=== PATIENT | male | born 1945 | race Caucasian/White ===

== ENCOUNTER 2016-05-09 17:51 | Emergency (ER) | payer MEDICARE, BC ==
[2016-05-09 18:13] VITALS: BP 119/78; PULSE 77; RESP 20; TEMP 98
[2016-05-09] MEDS ORDERED: MORPHINE SULFATE 4 MG/ML SYRINGE IV STA (18:52)
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
[2016-05-09] MEDS ORDERED: MORPHINE SULFATE 10 MG/ML SYRINGE IM STA (19:00)
--- NOTE | 2016-05-09 19:07 | XR ---
EXAMINATION TYPE: XR lumbar spine 2 or 3V DATE OF EXAM: 05/09/2016 7:02 PM COMPARISON: 12/03/2014 HISTORY: Back pain after a fall TECHNIQUE: 3 views FINDINGS: There is a slight levoscoliosis. There is mild narrowing of L4-5 disc space. There is no co mpression fracture. Abdominal aorta is atheromatous. Posterior elements are intact. Sacroiliac joints are normal. IMPRESSION: No fracture. Mild spondylosis at L4-5. Mild levoscoliosis. No change.
== END 2016-05-09 19:22 | disposition home or self-care (01) ==
LOC: EC 17:51
DX: M54.5 Low back pain (principal); G89.29 Other chronic pain; W00.0XXA Fall on same level due to ice and snow, initial encounter; I10 Essential (primary) hypertension; E78.5 Hyperlipidemia, unspecified; K21.9 Gastro-esophageal reflux disease without esophagitis; I20.9 Angina pectoris, unspecified; F17.200 Nicotine dependence, unspecified, uncomplicated; Z79.82 Long term (current) use of aspirin; Z79.899 Other long term (current) drug therapy; Z86.73 Personal history of transient ischemic attack (TIA), and cerebral infarction without residual deficits; I25.2 Old myocardial infarction
CPT/HCPCS: 72100; 99283; 96372; J2270

== ENCOUNTER 2016-05-09 22:02 | Inpatient (IN) | payer MEDICARE, BC ==
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
[2016-05-09] MEDS ORDERED: KETOROLAC 30 MG/ML 1 ML VIAL IVP STA (22:15)
[2016-05-09 22:29] LABS: Basophils # (A) 0.1 k/uL (0-0.2); Basophils % (A) 0 %; CH 32.6; CHCM 34.5; Eosinophils # (A) 0.2 k/uL (0-0.7); Eosinophils % (A) 2 %; HCT 44.9 % (39.0-53.0); HDW 2.38; Luc # (Auto) 0.24; Luc % (Auto) 2; Lymphocytes # (A) 2.2 k/uL (1.0-4.8); Lymphocytes % (A) 15 %; MCH 31.7 pg (25.0-35.0); MCHC 33.4 g/dL (31.0-37.0); MCV 94.9 fL (80.0-100.0); Mean Platelet Volume 6.3; Monocytes # (A) 0.7 k/uL (0-1.0); Monocytes % (A) 5 %; Neutrophils # (A) 10.6 k/uL (1.3-7.7); Neutrophils % (A) 76 %; RBC 4.73 m/uL (4.30-5.90); WBC (Perox) 13.15
[2016-05-09 22:37] LABS: ALT 187 U/L (21-72); AST 233 U/L (17-59); Alkaline Phosphatase 99 U/L (38-126); Amylase 176 U/L (30-110); Anion Gap 16 mmol/L; Blood Urea Nitrogen 17 mg/dL (9-20); Calcium 9.1 mg/dL (8.4-10.2); Carbon Dioxide 22 mmol/L (22-30); Chloride 105 mmol/L (98-107); Glucose 87 mg/dL (74-99); Magnesium 2.2 mg/dL (1.6-2.3); Non-African American GFR(MDRD) 52 (>60 ml/min/1.73 sqM); Potassium 4.5 mmol/L (3.5-5.1); Sodium 143 mmol/L (137-145); Total Protein 7.2 g/dL (6.3-8.2)
[2016-05-09 22:49] LABS: Creatine Kinase 161 U/L (55-170)
--- NOTE | 2016-05-09 22:51 | XR ---
EXAMINATION TYPE: XR chest 2V DATE OF EXAM: 05/09/2016 10:28 PM COMPARISON: 09/13/2011 HISTORY: Chest pain TECHNIQUE: Frontal and lateral views of the chest are obtained. FINDINGS: Heart is normal. There is evidence of calcified pleural plaque in the right lower lobe lat erally and posteriorly. There is no heart failure. There are no hilar masses. There are chest leads. There is no sign of pleural effusion. IMPRESSION: Extensive right lower lobe calcified pleural plaque appears fairly stable compared to ol d chest x-ray. No acute lung disease.
[2016-05-09 22:53] LABS: Prothrombin Time 10.2 sec (9.0-12.0)
[2016-05-09 22:55] LABS: Partial Thromboplastin Time 20.7 sec (22.0-30.0)
[2016-05-09 23:01] LABS: Creatine Kinase MB 2.4 ng/mL (0.0-2.4); Troponin I <0.012 ng/mL (0.000-0.034)
[2016-05-09] MEDS ORDERED: HYDROmorphone 1 MG/ML 1 ML SYRINGE IVP STA (23:13)
[2016-05-09] MEDS ORDERED: ONDANSETRON 4 MG/2 ML VIAL IVP STA (23:13)
[2016-05-09] MEDS ORDERED: NALOXONE 0.4 MG/ML 1 ML VIAL IV PRN (23:28)
[2016-05-09] MEDS ORDERED: ONDANSETRON 4 MG/2 ML VIAL IVP PRN (23:28)
[2016-05-09] MEDS ORDERED: NITROGLYCERIN SL TABS 0.4 MG TAB SUBLINGUAL PRN (23:32)
[2016-05-09] MEDS: SODIUM CHLORIDE 0.9% 1,000 ML IV SCH (23:53)
[2016-05-10 00:42] VITALS: BMI 23.1
[2016-05-10] MEDS: HYDROmorphone 1 MG/ML 1 ML SYRINGE IV PRN ×6 (02:30→20:38)
[2016-05-10] MEDS: SODIUM CHLORIDE 0.9% 1,000 ML IV SCH ×3 (04:39→20:52)
[2016-05-10] MEDS: PANTOPRAZOLE 40 MG/10 ML VIAL IV SCH ×2 (07:25→20:41)
[2016-05-10 15:14] LABS: ALT 335 U/L (21-72); AST 385 U/L (17-59); Alkaline Phosphatase 124 U/L (38-126); Anion Gap 11 mmol/L; Blood Urea Nitrogen 18 mg/dL (9-20); Calcium 8.5 mg/dL (8.4-10.2); Carbon Dioxide 22 mmol/L (22-30); Chloride 107 mmol/L (98-107); Glucose 84 mg/dL (74-99); Non-African American GFR(MDRD) >60 (>60 ml/min/1.73 sqM); Sodium 140 mmol/L (137-145); Total Bilirubin 1.2 mg/dL (0.2-1.3); Total Protein 6.2 g/dL (6.3-8.2)
[2016-05-10 16:15] LABS: Anion Gap 12 mmol/L; Blood Urea Nitrogen 22 mg/dL (9-20); Calcium 8.8 mg/dL (8.4-10.2); Carbon Dioxide 21 mmol/L (22-30); Chloride 108 mmol/L (98-107); Glucose 65 mg/dL (74-99); Non-African American GFR(MDRD) >60 (>60 ml/min/1.73 sqM); Potassium 4.3 mmol/L (3.5-5.1); Sodium 141 mmol/L (137-145)
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
[2016-05-10] MEDS ORDERED: RX INFO: IV CONTRAST WAS GIVEN 1 EACH MISC MISCELLANE PRN (16:51)
[2016-05-10] MEDS ORDERED: IOHEXOL 350 MG/ML 25 ML BOTTLE (ORAL USE) PO PRN (16:51)
[2016-05-10] MEDS: DEXTROSE 5%-0.9% NACL 1,000 ML IV SCH ×2 (17:39→23:13)
--- NOTE | 2016-05-10 18:43 | HP ---
DATE OF ADMISSION: 05/09/2016 Patient is a pleasant 70 -year-old gentleman with history of cerebrovascular accident, transient ischemic attack, gastroesophageal reflux disease who came in with complaints of epigastric abdominal pain radiating to the neck and left arm, pressure like sensation. Started when he woke up. Patient had an EKG which did not show any acute ST-T wave changes. Troponins are negative. The patient chest pain, ( ) associated diaphoresis with that. Patient denied any fever, chills. The patient denied any cough or runny nose. The patient was found to have elevated lipase, highly elevated lipase because of which patient was admitted to the hospital, although patient denied any symptoms of abdominal pain. He does have some epigastric component of abdominal pain rather than chest pain and ( ) the patient upon ( ) tenderness. The patient is complaining of back pain. Patient had a fall. Patient was evaluated for a fall with imaging studies ( ) the hospital after which patient started having these symptoms of back pain and chest pain which is probably related to ( ) chest pain is probably related to pancreatitis rather than active chest pain and is mostly epigastric in nature. Cardiology was consulted. Ordering abdominal x-ray so that I can look into his ( ) I can confirm pancreatitis and see any ( ) pathology and also we will help him evaluate his thoracic and thoracolumbar spine as well on that imaging. Because of his recent fall and severe back pain, he is complaining of which is 7/10 in severity. The patient denied any fever or chills. The patient liver enzymes are elevated as well. Depending on the CT of the abdomen, I may also need to get abdominal ultrasound to see any cholelithiasis related gallstone pancreatitis. REVIEW OF SYSTEMS: CONSTITUTIONAL: No fever, no malaise, no fatigue. HEENT: No recent visual problems or hearing problems. Denied any sore throat. CARDIOVASCULAR: As described in HPI. PULMONARY: No shortness of breath, no cough, no hemoptysis. GASTROINTESTINAL: As described in HPI. NEUROLOGICAL: No headaches, no weakness, no numbness. HEMATOLOGICAL: Denies any bleeding or petechiae. GENITOURINARY: Denies any burning micturition, frequency, or urgency. MUSCULOSKELETAL/RHEUMATOLOGICAL: As described in HPI. ENDOCRINE: Denies any polyuria or polydipsia. The rest of the 14 point review of systems is negative. PAST MEDICAL HISTORY: Significant for coronary artery disease with previous stenting in the past, myocardial infarction in the past, CVA, TIA, gastroesophageal reflux disease, hyperlipidemia, hypertension, cholecystectomy, orthopedic surgery, neck and jaw surgery. SOCIAL HISTORY: Patient continues to smoke. Denied any alcohol abuse or drug abuse. FAMILY HISTORY: Father had angina, chest pain. Mother had cancer. Home medications include: 1. Atenolol. 2. Isosorbide mononitrate. 3. Nitroglycerin. 4. Pantoprazole. 5. Amlodipine. 6. Aspirin. 7. Atorvastatin. 8. Wellbutrin. ALLERGIES: NSAIDS. PHYSICAL EXAMINATION: Temperature 97.6, pulse of 61, respiratory rate of 16, blood pressure is 160/82, saturating at 95% on room air. GENERAL: The patient is alert and oriented x3, not in any acute distress. Well developed, well nourished. HEENT: Pupils are round and equally reacting to light. EOMI. No scleral icterus. No conjunctival pallor. Normocephalic, atraumatic. No pharyngeal erythema. No thyromegaly. CARDIOVASCULAR: S1 and S2 present. No murmurs, rubs, or gallops. PULMONARY: Chest is clear to auscultation, no wheezing or crackles. ABDOMEN: Soft, nontender, nondistended, normoactive bowel sounds. No palpable organomegaly. MUSCULOSKELETAL: No joint swelling or deformity. EXTREMITIES: No cyanosis, clubbing, or pedal edema. NEUROLOGICAL: Gross neurological examination did not reveal any focal deficits. SKIN: No rashes. LABORATORY DATA: CBC, CMP are abnormal for elevated WBC 14,000. Patient's creatinine yesterday was elevated to 1.12, 1.36 on admission because of which I am repeating the creatinine. If it comes down to normal then I will get a CT of the abdomen and AST and ALT are elevated. The patient's amylase and lipase are elevated. Lipase is 2668. The patient is presently n.p.o. We will continue on n.p.o. The patient's chest x-ray showed right lower lobe calcified pleural plaque, actually pulmonology is following the patient as well. ASSESSMENT AND PLAN: 1. Possible pancreatitis causing all these symptoms. The patient most probably has gallstone pancreatitis. Patient does have alcohol abuse history but I believe it is mostly due to gallstones. First I will obtain a CT of the abdomen as mentioned above and then ultrasound of the abdomen depending on what CT shows to evaluate for the gallbladder. The patient continues to be n.p.o. IV fluid. Continue with IV Fluids as mentioned earlier. 2. Chest pain appears to be mostly gastric and pancreatic in nature, the patient is on Protonix but anyways we will consult cardiology, acute coronary syndrome is ruled out. 3. Back pain most probably related to pancreatitis, although patient has spondylosis at L4, L5 level and recent fall. I do not believe that is contributing to his pain. 4. History of cerebrovascular accident/ transient ischemic attack. 5. Coronary artery disease. 6. Nicotine dependence. 7. Elevated liver enzymes undergoing further evaluation as mentioned above. Will also obtain a hepatitis panel.
[2016-05-10 19:11] LABS: Hepatitis B Surface Ag Index 0.06
--- NOTE | 2016-05-10 19:13 | CT ---
EXAMINATION TYPE: CT abdomen pelvis w con DATE OF EXAM: 05/10/2016 6:51 PM COMPARISON: 09/11/2012 HISTORY: Upper abdominal pain x 4-[address] DLP: 962.00 mGycm Automated exposure control for dose reduction was used. TECHNIQUE: Helical acquisition of images was performed from the lung bases through the pelvis. CONTRAST: Performed with Oral Contrast and with IV Contrast, patient injected with 100 mL of Omnipaque 300. FINDINGS: There is extensive calcified pleural plaque at the right lung base. There is no pleural effusion. Hea rt size is normal. The stomach is dilated with the oral contrast. Spleen appears normal. There is no focal liver defect. Intrahepatic bile ducts are not dilated. There are clips from cholecystectomy. There is a dilated co mmon bile duct that measures 2 cm. There are multiple bilateral renal cortical cysts. The largest is on the lateral left kidney and drake ures 6.5 cm. There is no hydronephrosis. There is no retroperitoneal adenopathy. Abdominal aorta is a theromatous. There is no ascites. I see no intestinal wall thickening. There are no dilated loops. Bl adder distends smoothly. There is no sign of a pelvic mass. Appendix appears normal. I see no bony de structive process. IMPRESSION: EXTENSIVE CALCIFIED PLEURAL PLAQUE AT THE RIGHT LUNG BASE. NUMEROUS BILATERAL RENAL CORTICAL CYSTS. D ILATED STOMACH WITH THE ORAL CONTRAST. THERE IS ORAL CONTRAST IN THE SMALL BOWEL. THE POSSIBILITY OF A MILD GASTRIC OUTLET OBSTRUCTION SHOULD BE CONSIDERED. THERE IS A DILATED COMMON BILE DUCT THAT IS INCREASED IN SIZE COMPARED TO LAST CT SCAN. THIS IS SUGGE STIVE OF BILIARY DYSFUNCTION. THERE IS NO SIGNIFICANT CHANGE IN THE RENAL CYSTS AND PLEURAL PLAQUE.
[2016-05-10 19:17] LABS: Hepatitis B Core IgM Index 0.03
[2016-05-10 19:28] LABS: Hepatitis C Virus IgG Index 0.01
[2016-05-10 19:47] LABS: Hepatitis C Virus IgG Ab Negative (Negative)
[2016-05-11] MEDS: SODIUM CHLORIDE 0.9% 1,000 ML IV SCH ×2 (04:52→11:31)
[2016-05-11] MEDS: HYDROmorphone 1 MG/ML 1 ML SYRINGE IV PRN ×3 (07:19→13:25)
[2016-05-11] MEDS: ISOSORBIDE MONONITRATE ER 60 MG TAB.ER.24H PO SCH (07:20)
[2016-05-11] MEDS: ATENOLOL 25 MG TAB PO SCH (07:20)
[2016-05-11] MEDS: PANTOPRAZOLE 40 MG/10 ML VIAL IV SCH ×2 (07:20→21:51)
[2016-05-11 08:29] LABS: Basophils % (A) 1 %; CH 32.6; CHCM 34.3; Eosinophils # (A) 0.2 k/uL (0-0.7); Eosinophils % (A) 4 %; HCT 42.3 % (39.0-53.0); HDW 2.49; HGB 13.7 gm/dL (13.0-17.5); Luc # (Auto) 0.07; Luc % (Auto) 1; Lymphocytes # (A) 0.8 k/uL (1.0-4.8); Lymphocytes % (A) 13 %; MCH 30.9 pg (25.0-35.0); MCHC 32.4 g/dL (31.0-37.0); MCV 95.4 fL (80.0-100.0); Mean Platelet Volume 7.2; Monocytes # (A) 0.5 k/uL (0-1.0); Monocytes % (A) 9 %; Neutrophils # (A) 4.1 k/uL (1.3-7.7); Neutrophils % (A) 73 %; RBC 4.43 m/uL (4.30-5.90); RDW 13.1 % (11.5-15.5); WBC 5.6 k/uL (3.8-10.6); WBC (Perox) 5.75
[2016-05-11 08:31] LABS: ALT 205 U/L (21-72); AST 101 U/L (17-59); Alkaline Phosphatase 171 U/L (38-126); Amylase 60 U/L (30-110); Anion Gap 9 mmol/L; Blood Urea Nitrogen 11 mg/dL (9-20); Calcium 8.8 mg/dL (8.4-10.2); Carbon Dioxide 24 mmol/L (22-30); Chloride 110 mmol/L (98-107); Glucose 118 mg/dL (74-99); Non-African American GFR(MDRD) >60 (>60 ml/min/1.73 sqM); Sodium 143 mmol/L (137-145); Total Bilirubin 1.6 mg/dL (0.2-1.3); Total Protein 6.4 g/dL (6.3-8.2)
--- NOTE | 2016-05-11 09:22 | US ---
EXAMINATION TYPE: US gallbladder DATE OF EXAM: 05/11/2016 8:52 AM COMPARISON: CT on PACS from yesterday. CLINICAL HISTORY: elevated liver enzymes. pancreatitis; gallbladder removed EXAM MEASUREMENTS: Liver Length: 15.8 cm Gallbladder Wall: surgically removed CBD: 1.6 cm at jared hepatis and then decreases within head of pancreas to 1.0cm Right Kidney: 11.0 x 8.0 x 4.2 cm TECHNOLOGIST IMPRESSION: Pancreas: pancreatic duct by US at 0.3cm upper limits of normal Liver: Heterogeneous Gallbladder: surgically absent CBD: abnormally prominent at jared hepatis as can be measure up to 1.0cm post cholecystectomy,but do es taper to 1.0cm within pancreas Right Kidney: multiple renal cysts with largest at upper pole = 3.4 x 3.1 x 3.3cm Pancreatic duct is upper limits of normal and correlates with recent CT. There is extrahepatic biliar y dilatation without intrahepatic biliary dilatation which correlates with recent CT. Liver is hetero geneous in appearance. Evaluation for focal masses is limited due to the heterogeneity. No obvious erazo spicious masses are seen on recent CT. Several simple appearing cysts are scattered throughout the ri ght kidney. IMPRESSION: 1. Mild to moderate extrahepatic biliary dilatation out of proportion to what is suspected after chol ecystectomy is redemonstrated. No intrahepatic ductal dilatation is seen. Need to further investigate biliary ERCP should be based on clinical and lab correlation. 2. No worrisome pancreatic ductal dilatation is noted. On CT there is pancreatic divisum with main du ct emptying into duodenum superior to the ampulla seen best on coronal images. 3. Heterogeneity of liver could reflect fatty infiltration or underlying hepatocellular disease and c orrelates with recent CT. No intrahepatic ductal dilatation is noted.
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
[2016-05-11] MEDS: DEXTROSE 5%-0.9% NACL 1,000 ML IV SCH ×3 (13:03→21:51)
[2016-05-11] MEDS ORDERED: LEVOFLOXACIN 500MG-D5W PMX 500 MG in DEXTROSE/WATER 1 100ML.BAG IVPB ONE (14:00)
[2016-05-11] MEDS ORDERED: PROPOFOL 10 MG/ML 20 ML VIAL IV ONE (14:01)
[2016-05-11] MEDS ORDERED: LIDOCAINE 1% INJ 10MG/ML (20 ML MDV) ONE (14:01)
[2016-05-11] MEDS ORDERED: GLUCAGON 1 MG/ML VIAL ONE (14:01)
[2016-05-11] MEDS ORDERED: KETAMINE 10 MG/ML 20 ML VIAL ONE (14:01)
[2016-05-11] MEDS ORDERED: GLYCOPYRROLATE 0.2 MG/ML 2 ML VIAL ONE (14:01)
[2016-05-11] MEDS ORDERED: IV FLUID CONTINUATION 800 ML IV ONE (14:18)
[2016-05-11] MEDS ORDERED: IOHEXOL 300 MG/ML 50 ML BOTTLE INJ ONE (14:48)
--- NOTE | 2016-05-11 15:03 | P.PN ---
Subjective Principal diagnosis: Pancreatitis This is a very pleasant 70-year-old gentleman who has a history of CVA/TIA, GERD , hyperlipidemia, hypertension, chronic and ongoing tobacco dependence, daily alcohol use and angina. He presented here to the emergency room yesterday with complaints of sharp midsternal chest pain. He was here earlier in the day after sustaining a fall and injury to his back was treated and released. A few hours later he developed sharp midsternal anterior chest pain 7/10 in severity he took some nitroglycerin without relief. He was given morphine in the Route by the paramedics that helped subside the pain somewhat. He also had some epigastric discomfort radiating to his back. His chest x-ray revealed extensive right lower lobe calcified pleural plaque but no acute pulmonary process. D-dimer was negative and he did develop elevated LFTs which are slightly increased today as compared to yesterday. He was also found to have elevated amylase at 176, lipase 1683 increased to 2668 today. He is seen today in consultation. He is awake and alert in no acute distress. He is continuing to have some back pain. He also has some epigastric pain. He has remained nothing by mouth. He is seen again today 05/11/2016 in follow-up. He is awake and alert in no acute distress. He states his pain is subsided somewhat today as compared to yesterday. He has been seen by GI services and the plan is for an ERCP after a CT of the abdomen revealed dilated common bile duct that is increased in size compared to previous. This is suggestive of biliary dysfunction. He has consented to the procedure. His hepatitis screen is negative. His amylase and lipase have returned to normal. He currently denies any shortness of breath, cough or congestion. Objective - Vital Signs Vital signs: Vital Signs Temp 98.5 F 05/11/16 07:15 Pulse 68 05/11/16 07:15 Resp 16 05/11/16 07:15 BP 162/77 05/11/16 07:15 Pulse Ox 97 05/11/16 07:15 Intake & Output 05/10/16 05/11/16 05/11/16 18:59 06:59 18:59 Intake Total 1500 1300 Balance 1500 1300 Weight 67.132 kg Intake: IV 300 Intake, IV Titration 1500 1000 Amount Dextrose 5%-0.9% NaCl 1, 1200 1000 000 ml @ 150 mls/hr IV . Q6H40M [facility] Rx#:[id number] Sodium Chloride 0.9% 1, 300 000 ml @ 150 mls/hr IV . Q6H40M [facility] Rx#:[id number] Other: Voiding Method Toilet Toilet Urinal Urinal # Voids 2 2 # Bowel Movements 1 - Exam GENERAL EXAM: Alert, active, comfortable in no apparent distress. HEAD: Normocephalic. EYES: Normal reaction of pupils, equal size. NOSE: Clear with pink turbinates. THROAT: No erythema or exudates. NECK: No masses, no JVD. CHEST: No chest wall deformity. LUNGS: Equal air entry with no crackles, wheeze, rhonchi or dullness. CVS: S1 and S2 normal with no audible mumurs, regular rhythm. ABDOMEN: No hepatosplenomegaly, normal bowel sounds, no guarding or rigidity. SPINE: No scoliosis or deformity SKIN: No rashes CENTRAL NERVOUS SYSTEM: No focal deficits, tone is normal in all 4 extremities. Extremities: There is no significant peripheral edema. No clubbing, no cyanosis. Peripheral pulses are intact. - Labs CBC & Chem 7: 05/11/16 07:17 05/11/16 07:17 Labs: Abnormal Lab Results - Last 24 Hours (Table) 05/10/16 05/10/16 05/11/16 Range/Units 03:51 15:28 07:17 Lymphocytes # (1.0-4.8) k/uL Chloride 108 H 110 H (98-107) mmol/L Carbon Dioxide 21 L (22-30) mmol/L BUN 22 H (9-20) mg/dL Glucose 65 L 118 H (74-99) mg/dL Total Bilirubin 1.6 H (0.2-1.3) mg/dL AST 385 H 101 H (17-59) U/L ALT 335 H 205 H (21-72) U/L Alkaline Phosphatase 171 H (38-126) U/L Total Protein 6.2 L (6.3-8.2) g/dL 05/11/16 Range/Units 07:17 Lymphocytes # 0.8 L (1.0-4.8) k/uL Chloride (98-107) mmol/L Carbon Dioxide (22-30) mmol/L BUN (9-20) mg/dL Glucose (74-99) mg/dL Total Bilirubin (0.2-1.3) mg/dL AST (17-59) U/L ALT (21-72) U/L Alkaline Phosphatase (38-126) U/L Total Protein (6.3-8.2) g/dL Assessment and Plan Plan: Impression: #1 Anterior wall chest pain with epigastric discomfort secondary to pancreatitis. Computed tomography scan of the abdomen and pelvis revealed dilated common bile duct that is increased in size compared to previous. There is suggestion of biliary dysfunction and the plan is for ERCP today. #2 Pancreatitis secondary to excessive alcohol intake. #3 Back pain secondary to fall without acute fracture and mild spondylosis at L4 -5. Mild level scoliosis. #4 Angina. #5 History of CVA/TIA. #6 Chronic and ongoing tobacco dependence. #7 Chronic and ongoing daily alcohol use with elevated liver enzymes. Plan: The patient was seen and evaluated by Dr. Lindo. He is currently stable from the pulmonary standpoint. He has no pulmonary complaints. The plan is for ERCP today. We'll continue to follow and make further recommendations based on his clinical status.
--- NOTE | 2016-05-11 15:03 | FL ---
EXAMINATION TYPE: FL ERCP DATE OF EXAM: 05/11/2016 2:57 PM CLINICAL HISTORY: Biliary dilatation, abnormal CT TECHNIQUE: Fluoroscopy. COMPARISON: CT abdomen and pelvis from yesterday. FINDINGS: Fluoroscopic guidance was provided during ERCP procedure performed by Dr. Dixon. A total of 1 minute 57 seconds of fluoroscopic time was utilized during the procedure and 2 spot images are acquired. There is poor visualization of biliary system on images saved. Please refer to procedure no te for further details as I was not present nor performed procedure. IMPRESSION: As Above.
--- NOTE | 2016-05-11 15:56 | P.PCN ---
Date of Procedure: 05/11/16 Procedure(s) Performed: Procedure: Endoscopic retrograde pancreatography. Preoperative diagnosis: Pancreatitis and abnormal liver enzymes, rule out common bile duct stone. Postoperative diagnosis: 1. Pancreas divisum. 2. Common bile duct could not be visualized despite multiple attempts. Brief clinical history: The patient is a 70-year-old male with past medical history of GERD, hyperlipidemia, hypertension, cholelithiasis/cholecystectomy, CVA, and [place] presents with acute abdominal pain for last 2 days with nausea vomiting. Pancreatic enzymes elevated consistent with acute pancreatitis. Lipase 1683 increased to 2668 yesterday currently 85. Amylase 176 on admission , currently 60. Pain located mostly around the mid epigastrium/midabdomen. History of remote EtOH abuse but denies current abuse. Admission white count 14 currently 5.6. Total bilirubin on admission 1.0. AST 233. ALT 187. Yesterday total bilirubin 1.2. AST 385. ALT 335. Alkaline phosphate is 124. Today total bilirubin is increased to 1.6. AST 101. ALT 205. Alk phos is 171. Ultrasound of the abdomen reported CBD 1.6 at the jared hepatis than decreasing to 1.0 cm as it tapers toward the head of the pancreas. Additionally US mentions pancreatic divisum. Computed tomography scan abdomen and pelvis reported no evidence of intrahepatic ductal dilatation but there was evidence of extrahepatic ductal dilatation with CBD measuring up to 2 cm. No obvious retained CBD stones seen on CT. No focal pancreatic masses. Because of the persistent abdominal pain and biochemical abnormalities, this evaluation was scheduled to rule out common bile duct stone or other pathology. The details are summarized in the history and physical and dictated consultation. Procedure: With the patient in the prone position and after informed consent and adequate sedation, I passed the Olympus video duodenoscope down the esophagus into the stomach then passed it through the pylorus into the duodenum and brought the papilla into view. The papilla did not show any obvious abnormalities. Initial cannulation and injection with dye resulted in opacification of the ventral portion of the pancreatic duct consistent with pancreas divisum. Subsequent attempts to cannulate and inject the common bile duct were not successful. The patient tolerated the procedure well. Plan: I discussed the findings with the patient and with his in detail. Depending on his clinical course I would consider MRCP or EUS to further evaluate the problem and rule out other causes of pancreatitis. We will follow with you with interest.
--- NOTE | 2016-05-11 21:59 | PN ---
Patient is admitted with pancreatitis. Patient has gallstone pancreatitis. Patient also has possibility of choledocholithiasis, because of which patient underwent ERCP which showed pancreatic divisum. Further attempts to re-cannulate were unsuccessful and they are recommending MRCP ( ) as patient's liver enzymes are coming down. I will just hold off on MRCP. I will leave that decision to Gastroenterology. Patient's abdominal pain improved. The patient was started on diet, advance as tolerated. REVIEW OF SYSTEMS: CARDIOVASCULAR: No chest pain, no orthopnea, no PND, no palpitations. PULMONARY: Denied any shortness of breath. No cough or hemoptysis. GASTROINTESTINAL: No diarrhea, nausea or vomiting. No abdominal pain. Normoactive bowel sounds. NEUROLOGIC: No headaches, no weakness, no numbness. Medications were reviewed. PHYSICAL EXAMINATION: VITAL SIGNS: Temperature 98.5, pulse of 68, respiratory rate of 16. Blood pressure is 162/77, saturating at 97% on room air. GENERAL: The patient is alert and oriented x3, not in any acute distress. Well developed, well nourished. HEENT: Pupils are round and equally reacting to light. EOMI. No scleral icterus. No conjunctival pallor. Normocephalic, atraumatic. No pharyngeal erythema. No thyromegaly. CARDIOVASCULAR: S1 and S2 present. No murmurs, rubs, or gallops. PULMONARY: Chest is clear to auscultation, no wheezing or crackles. ABDOMEN: Soft, nontender, nondistended, normoactive bowel sounds. No palpable organomegaly. MUSCULOSKELETAL: No joint swelling or deformity. EXTREMITIES: No cyanosis, clubbing, or pedal edema. NEUROLOGICAL: Gross neurological examination did not reveal any focal deficits. SKIN: No rashes. LABORATORY DATA: Liver enzymes are coming down. AST is 101, ALT is 2015. ASSESSMENT AND PLAN: 1. Pancreatitis. Patient probably has gallstone pancreatitis. Patient has chronic cholelithiasis as well with liver enzymes that are coming down. Management as mentioned. 2. Chest pain mostly related to epigastric area. Patient was evaluated by Cardiology. No further intervention at this point of time. 3. Cerebrovascular accident. 4. Coronary artery disease. 5. Nicotine dependence. PLAN: Advance diet as tolerated. Possibility of discharge tomorrow.
[2016-05-12 04:56] VITALS: RESP 16
[2016-05-12] MEDS ORDERED: DEXTROSE 5%-0.9% NACL 1,000 ML IV SCH (05:00)
[2016-05-12] MEDS: DEXTROSE 5%-0.9% NACL 1,000 ML IV SCH ×2 (05:37→10:02)
[2016-05-12 06:48] LABS: CH 32.4; CHCM 34.3; HCT 39.3 % (39.0-53.0); HDW 2.41; MCH 31.3 pg (25.0-35.0); MCHC 33.1 g/dL (31.0-37.0); MCV 94.6 fL (80.0-100.0); Mean Platelet Volume 6.4; RBC 4.15 m/uL (4.30-5.90); RDW 12.9 % (11.5-15.5); WBC 4.6 k/uL (3.8-10.6)
[2016-05-12 06:59] LABS: ALT 152 U/L (21-72); AST 63 U/L (17-59); Alkaline Phosphatase 158 U/L (38-126); Anion Gap 10 mmol/L; Blood Urea Nitrogen 5 mg/dL (9-20); Carbon Dioxide 26 mmol/L (22-30); Chloride 108 mmol/L (98-107); Glucose 119 mg/dL (74-99); Non-African American GFR(MDRD) >60 (>60 ml/min/1.73 sqM); Potassium 3.6 mmol/L (3.5-5.1); Sodium 144 mmol/L (137-145); Total Bilirubin 1.5 mg/dL (0.2-1.3)
[2016-05-12 07:27] VITALS: BP 157/72; PULSE 66; TEMP 97.7
[2016-05-12] MEDS: ATENOLOL 25 MG TAB PO SCH (10:02)
[2016-05-12] MEDS: PANTOPRAZOLE 40 MG/10 ML VIAL IV SCH (10:02)
[2016-05-12] MEDS: ISOSORBIDE MONONITRATE ER 60 MG TAB.ER.24H PO SCH (10:02)
--- NOTE | 2016-05-12 10:41 | P.PN ---
Subjective Principal diagnosis: Pancreatitis 70-year-old male with a history of remote EtOH abuse, cholelithiasis cholecystectomy admitted with acute pancreatitis mid abdominal pain elevated transaminases with suspected retained CBD stone. ERCP yesterday was able to cannulate into the pancreatic duct with identification of pancreatic divisum however CBD could not be cannulated. This morning patient has complete resolution of his abdominal pain. Transaminases relatively unchanged total bilirubin 1.5. AST 63. ALT 152. Alk phos is 158. Afebrile. Tolerating liquid diet. Objective - Vital Signs Vital signs: Vital Signs Temp 97.7 F 05/12/16 07:00 Pulse 66 05/12/16 07:00 Resp 16 05/12/16 07:00 BP 157/72 05/12/16 07:00 Pulse Ox 95 05/12/16 07:42 Intake & Output 05/11/16 05/12/16 05/12/16 18:59 06:59 18:59 Intake Total 1300 540 850 Balance 1300 540 850 Intake: IV 300 Intake, IV Titration 1000 Amount Dextrose 5%-0.9% NaCl 1, 1000 000 ml @ 150 mls/hr IV . Q6H40M [facility] Rx#:[id number] Oral 540 850 Other: Voiding Method Toilet # Voids 2 # Bowel Movements 1 - Exam General appearance: The patient is alert, oriented, in no acute distress. HET: Head is normocephalic and atraumatic. Pupils are equal and reactive. Oropharynx is clear without lesions. Neck: Supple without lymphadenopathy. Trachea midline. Heart: S1 S2. Regular rate and rhythm. Lungs: No crackles or wheezes are heard. Abdomen: Soft, nontender, nondistended with bowel sounds. No peritoneal signs. No palpable organomegaly or masses. Extremities: Normal skin color and turgor. No cyanosis, rash, ulceration, clubbing, or edema. Radial and pedal pulses are 2/4 bilaterally. Neurological: No focal deficits. Strength and sensation are grossly intact. - Labs CBC & Chem 7: 05/12/16 06:21 05/12/16 06:21 Labs: Abnormal Lab Results - Last 24 Hours (Table) 05/12/16 05/12/16 Range/Units 06:21 06:21 RBC 4.15 L (4.30-5.90) m/uL Chloride 108 H (98-107) mmol/L BUN 5 L (9-20) mg/dL Glucose 119 H (74-99) mg/dL Total Bilirubin 1.5 H (0.2-1.3) mg/dL AST 63 H (17-59) U/L ALT 152 H (21-72) U/L Alkaline Phosphatase 158 H (38-126) U/L Total Protein 6.0 L (6.3-8.2) g/dL Assessment and Plan (1) Acute pancreatitis Narrative/Plan: 70-year-old gentleman with a history of remote EtOH abuse admitted with acute pancreatitis abdominal pain with history of cholelithiasis and cholecystectomy with dilated common bile duct and extra hepatic biliary dilatation on US/CT imaging with elevated transaminases mild hyperbilirubinemia possible choledocholithiasis. Status post ERCP evaluation with cannulation of pancreatic duct with identification of pancreas divisum however CBD could not be visualized despite multiple attempts. Status: Acute Plan: 1. Agreeable for discharge. Outpatient follow-up in 1 week. Repeat CMP in 3- 4 days. A fat diet. Alcohol abstinence advised. Assessment and plan of care discussed with Dr. Escalante.
--- NOTE | 2016-05-12 11:29 | P.PN ---
Subjective Principal diagnosis: Acute pancreatitis This is a 70-year-old white male admitted a few days ago with acute pancreatitis , patient was noted to have abdominal pain, significantly elevated transaminases , and at one point it was felt that the patient may have a common bile duct stone. ERCP was attempted, however the common bile duct could not be cannulated. Patient was noted to have pancreatic divisum on ERCP. Surprisingly after the ERCP the patient had a significant improvement in his abdominal pain. Continues to be pain-free, no nausea no vomiting no abdominal pain today. Transaminases are still elevated but improved compared to 2 days ago, lipase today is 85. Objective - Vital Signs Vital signs: Vital Signs Temp 97.7 F 05/12/16 07:00 Pulse 66 05/12/16 07:00 Resp 16 05/12/16 07:00 BP 157/72 05/12/16 07:00 Pulse Ox 95 05/12/16 07:42 Intake & Output 05/11/16 05/12/16 05/12/16 18:59 06:59 18:59 Intake Total 1300 540 850 Balance 1300 540 850 Intake: IV 300 Intake, IV Titration 1000 Amount Dextrose 5%-0.9% NaCl 1, 1000 000 ml @ 150 mls/hr IV . Q6H40M [facility] Rx#:[id number] Oral 540 850 Other: Voiding Method Toilet # Voids 2 # Bowel Movements 1 - Exam General appearance: The patient is alert, oriented, in no acute distress. HET: Head is normocephalic and atraumatic. Pupils are equal and reactive. Oropharynx is clear without lesions. Neck: Supple without lymphadenopathy. Trachea midline. Heart: S1 S2. Regular rate and rhythm. Lungs: No crackles or wheezes are heard. Abdomen: Soft, nontender, nondistended with bowel sounds. No peritoneal signs. No palpable organomegaly or masses. Extremities: Normal skin color and turgor. No cyanosis, rash, ulceration, clubbing, or edema. Radial and pedal pulses are 2/4 bilaterally. Neurological: No focal deficits. Strength and sensation are grossly intact. - Labs CBC & Chem 7: 05/12/16 06:21 05/12/16 06:21 Labs: Abnormal Lab Results - Last 24 Hours (Table) 05/12/16 05/12/16 Range/Units 06:21 06:21 RBC 4.15 L (4.30-5.90) m/uL Chloride 108 H (98-107) mmol/L BUN 5 L (9-20) mg/dL Glucose 119 H (74-99) mg/dL Total Bilirubin 1.5 H (0.2-1.3) mg/dL AST 63 H (17-59) U/L ALT 152 H (21-72) U/L Alkaline Phosphatase 158 H (38-126) U/L Total Protein 6.0 L (6.3-8.2) g/dL Assessment and Plan Plan: Impression: Acute pancreatitis in a patient with history of alcohol abuse, status post ERCP and the common bile duct could not be cannulated. Patient was full noted to have pancreatic divisum, surprisingly all his abdominal pain resolved right after the ERCP. Recommendation: Considering the patient is doing well clinically, I agree with discharge planning, patient was a vice to stop drinking any alcohol, and follow- up on outpatient basis. Time with Patient: Less than 30
--- NOTE | 2016-05-13 13:51 | DS ---
DATE OF ADMISSION: 05/09/2016 DATE OF DISCHARGE: 05/12/2016 Patient is a 70-year-old admitted secondary to gall stone pancreatitis. Patient had a cholecystectomy in the past. Patient was found to have pancreatic divisum and patient has elevated liver enzymes because of which patient underwent ERCP. We do not know whether patient actually has choledocholithiasis or not, but anyways liver enzymes started coming down because of which patient is being discharged today and patient will follow up with Gastroenterology as an outpatient. The patient was seen and examined on the day of discharge. Vitals are stable. PHYSICAL EXAMINATION: GENERAL: The patient is alert and oriented x3, not in any acute distress. Well developed, well nourished. HEENT: Pupils are round and equally reacting to light. EOMI. No scleral icterus. No conjunctival pallor. Normocephalic, atraumatic. No pharyngeal erythema. No thyromegaly. CARDIOVASCULAR: S1 and S2 present. No murmurs, rubs, or gallops. PULMONARY: Chest is clear to auscultation, no wheezing or crackles. ABDOMEN: Soft, nontender, nondistended, normoactive bowel sounds. No palpable organomegaly. MUSCULOSKELETAL: No joint swelling or deformity. EXTREMITIES: No cyanosis, clubbing, or pedal edema. NEUROLOGICAL: Gross neurological examination did not reveal any focal deficits. SKIN: No rashes. FINAL DIAGNOSES: 1. Acute pancreatitis, gall stone pancreatitis. 2. Chest pain in the epigastric area, which is noncardiac in nature and related to gastritis for which patient will be discharged on Prilosec and patient is already on pantoprazole. 3. Cerebrovascular accident. 4. Coronary artery disease. 5. Nicotine dependence. Please refer to my depart summary for further details of discharge medications. No medication changes are being. The patient will follow with Dr. Escalante on the may at 1:30 p.m.; Dr. Tolliver on as needed basis; Dr. Claudio Harper on 13 of May at 2:15 p.m. I spent greater than 35 minutes in total discharge process.
== END 2016-05-12 15:01 | disposition home or self-care (01) | DRG 439 ==
LOC: EC 22:02 → 3SUR 23:56
PROVIDERS: ADMIT Internal Medicine; ATTEND Internal Medicine
PROC: 0FJD8ZZ Inspection of Pancreatic Duct, Via Natural or Artificial Opening Endoscopic (ICD-10-PCS; principal; 2016-05-11 10:10)
DX: K85.10 Biliary acute pancreatitis without necrosis or infection (principal); Q45.3 Other congenital malformations of pancreas and pancreatic duct; I45.10 Unspecified right bundle-branch block; M41.9 Scoliosis, unspecified; I10 Essential (primary) hypertension; E78.5 Hyperlipidemia, unspecified; F10.10 Alcohol abuse, uncomplicated; F17.200 Nicotine dependence, unspecified, uncomplicated; I25.119 Atherosclerotic heart disease of native coronary artery with unspecified angina pectoris; I25.2 Old myocardial infarction; K21.9 Gastro-esophageal reflux disease without esophagitis; K29.70 Gastritis, unspecified, without bleeding; K80.20 Calculus of gallbladder without cholecystitis without obstruction; M47.9 Spondylosis, unspecified; Z79.899 Other long term (current) drug therapy; Z86.73 Personal history of transient ischemic attack (TIA), and cerebral infarction without residual deficits; Z95.5 Presence of coronary angioplasty implant and graft; Z79.82 Long term (current) use of aspirin; Z88.6 Allergy status to analgesic agent
CPT/HCPCS: 36415; 43260; 71020; 72100; 74177; 74330; 76705; 80048; 80053; 80074; 82150; 82550; 82553; 83690; 83735; 83880; 84484; 85025; 85027; 85379; 85610; 85730; 93005; 94760; 96372; 96374; 96375; 99153; 99283; 99285

== ENCOUNTER → 2016-05-17 | Outpatient (CLI) | payer MEDICARE, BC ==
[2016-05-17 08:28] LABS: ALT 67 U/L (21-72); AST 24 U/L (17-59); Alkaline Phosphatase 107 U/L (38-126); Anion Gap 11 mmol/L; Blood Urea Nitrogen 19 mg/dL (9-20); Calcium 9.7 mg/dL (8.4-10.2); Carbon Dioxide 29 mmol/L (22-30); Chloride 104 mmol/L (98-107); Cholesterol 144 mg/dL (<200); Glucose 87 mg/dL (74-99); HDL Cholesterol 54 mg/dL (40-60); Non-African American GFR(MDRD) >60 (>60 ml/min/1.73 sqM); Potassium 4.7 mmol/L (3.5-5.1); Sodium 144 mmol/L (137-145); Total Bilirubin 0.9 mg/dL (0.2-1.3); Total Protein 7.1 g/dL (6.3-8.2); Triglycerides 102 mg/dL (<150)
== END | disposition home or self-care (01) ==
LOC: LABWHC1 07:15
PROVIDERS: ATTEND Internal Medicine Interventional Cardiology
DX: E78.2 Mixed hyperlipidemia (principal)
CPT/HCPCS: 36415; 80053; 80061

== ENCOUNTER → 2016-07-29 | Outpatient (CLI) | payer MEDICARE, BC ==
[2016-07-29 10:28] LABS: ALT 44 U/L (21-72); AST 32 U/L (17-59); Alkaline Phosphatase 87 U/L (38-126); Anion Gap 9 mmol/L; Blood Urea Nitrogen 15 mg/dL (9-20); Carbon Dioxide 29 mmol/L (22-30); Chloride 107 mmol/L (98-107); Glucose 95 mg/dL (74-99); Non-African American GFR(MDRD) >60 (>60 ml/min/1.73 sqM); Potassium 5.5 mmol/L (3.5-5.1); Sodium 145 mmol/L (137-145); Total Bilirubin 0.8 mg/dL (0.2-1.3); Total Protein 7.6 g/dL (6.3-8.2)
--- NOTE | 2016-07-29 10:38 | US ---
EXAMINATION TYPE: US abdomen limited DATE OF EXAM: 07/29/2016 9:13 AM COMPARISON: CT abdomen and pelvis May 10, 2016. CLINICAL HISTORY: Q45.3 Anomalies Of Pancreas. Pancreatic divisum per order. EXAM MEASUREMENTS: Liver Length: 16.0 cm Gallbladder Wall: Surgically absent CBD: 0.4 cm Right Kidney: 10.9 x 4.5 x 5.9 cm cm Pancreas: Obscured by bowel gas Liver: homogeneous Gallbladder: Surgically absent Evidence for sonographic Bray's sign: no CBD: wnl Right Kidney: 2 cysts seen on lower pole; 3.2 x 2.7 x 3.3 cm and 1.8 x 1.4 x 2.1 cm l Pancreas is suboptimally seen secondary to shadowing from overlying bowel gas on current study. IMPRESSION: Suboptimal evaluation of pancreas on this exam.
== END | disposition home or self-care (01) ==
LOC: RADUSWWP 08:51
DX: Q45.3 Other congenital malformations of pancreas and pancreatic duct (principal)
CPT/HCPCS: 36415; 76705; 80053; 86301

== ENCOUNTER → 2016-08-03 | Outpatient (CLI) | payer MEDICARE, BC ==
[2016-08-03 11:45] LABS: Anion Gap 13 mmol/L; Blood Urea Nitrogen 14 mg/dL (9-20); Calcium 9.8 mg/dL (8.4-10.2); Carbon Dioxide 28 mmol/L (22-30); Chloride 104 mmol/L (98-107); Glucose 109 mg/dL (74-99); Non-African American GFR(MDRD) >60 (>60 ml/min/1.73 sqM); Potassium 4.1 mmol/L (3.5-5.1); Sodium 145 mmol/L (137-145)
== END | disposition home or self-care (01) ==
LOC: LABWHC1 10:49
PROVIDERS: ATTEND Internal Medicine Critical Care Medicine
DX: E87.5 Hyperkalemia (principal)
CPT/HCPCS: 36415; 80048

== ENCOUNTER 2016-09-12 12:19 | Emergency (ER) | payer MEDICARE, BC ==
[2016-09-12 13:32] VITALS: BP 128/76; PULSE 67; RESP 20; TEMP 97
[2016-09-12] MEDS ORDERED: ORPHENADRINE 30 MG/ML 2 ML VIAL IM STA (14:08)
[2016-09-12] MEDS ORDERED: MORPHINE SULFATE 10 MG/ML SYRINGE IM STA (14:08)
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
--- NOTE | 2016-09-12 14:41 | XR ---
EXAMINATION TYPE: XR lumbar spine 2 or 3V DATE OF EXAM: 09/12/2016 COMPARISON: NONE HISTORY: Pain TECHNIQUE: 3 view lumbar spine FINDINGS: Mild scoliosis present with convexity to the left centered at L4. There is loss of disc hei ght L4-5 especially on the right. There 5 lumbar-type vertebral bodies. The pedicles are intact. Mini mal vacuum disc phenomenon at L4-5 is present. There is a superior endplate compression deformity at T12. This was present May 2016. This exam is compared to 05/09/2016. Findings including a compression deformity of the superior endplat e of T12 degenerative disc changes centered at L4-5 appear stable. IMPRESSION: 1. Superior endplate compression T12. 2. Degenerative disc change L4-5 3. Exam stable from May 2016
== END 2016-09-12 15:13 | disposition home or self-care (01) ==
LOC: EC 12:19
DX: M47.816 Spondylosis without myelopathy or radiculopathy, lumbar region (principal); M48.8X4 Other specified spondylopathies, thoracic region; E78.5 Hyperlipidemia, unspecified; I10 Essential (primary) hypertension; K21.9 Gastro-esophageal reflux disease without esophagitis; I25.2 Old myocardial infarction; Z87.891 Personal history of nicotine dependence; Z79.82 Long term (current) use of aspirin; Z79.899 Other long term (current) drug therapy; Z88.6 Allergy status to analgesic agent; Z86.79 Personal history of other diseases of the circulatory system
CPT/HCPCS: 72100; 99284; 96372 ×2; J2360; J2270

== ENCOUNTER 2016-11-08 17:46 | Emergency (ER) | payer MEDICARE, BC ==
[2016-11-08] MEDS ORDERED: SODIUM CHLORIDE 0.9% 1,000 ML IV STA ×2 (18:14)
[2016-11-08] MEDS ORDERED: PIPERACILLIN-TAZOBACTAM 3.375 GM in DEXTROSE/WATER 1 50ML.BAG IVPB STA (18:14)
[2016-11-08] MEDS ORDERED: ACETAMINOPHEN TAB 500 MG TAB PO STA (18:14)
[2016-11-08 18:50] VITALS: RESP 18
[2016-11-08 19:03] LABS: Basophils % (A) 0 %; CH 33.3; CHCM 34.5; Eosinophils # (A) 0.2 k/uL (0-0.7); Eosinophils % (A) 2 %; HCT 42.4 % (39.0-53.0); HDW 2.57; HGB 14.2 gm/dL (13.0-17.5); Luc # (Auto) 0.12; Luc % (Auto) 1; Lymphocytes # (A) 0.3 k/uL (1.0-4.8); Lymphocytes % (A) 3 %; MCH 32.4 pg (25.0-35.0); MCHC 33.4 g/dL (31.0-37.0); Mean Platelet Volume 7.5; Monocytes # (A) 0.3 k/uL (0-1.0); Monocytes % (A) 4 %; Neutrophils # (A) 7.9 k/uL (1.3-7.7); Neutrophils % (A) 89 %; RBC 4.38 m/uL (4.30-5.90); RDW 14.1 % (11.5-15.5); WBC 8.9 k/uL (3.8-10.6)
[2016-11-08 19:09] LABS: Amorphous Sediment,Urine Rare /hpf; Appearance,Urine Cloudy (Clear); Bilirubin,Urine 1+ (Negative); Glucose,Urine (UA) Negative (Negative); Ketones,Urine Negative (Negative); Leukocyte Esterase,Urine Moderate (Negative); Mucus,Urine Rare /hpf; Nitrite,Urine Negative (Negative); Particle Count 3150; Protein,Urine 2+ (Negative); RBC,Urine 1 /hpf (0-5); Specific Gravity,Urine 1.015 (1.001-1.035); Squamous Epithelial Cell,Urine 10 /hpf (0-4); UA Billing (MACRO vs. MICRO) MICRO; WBC,Urine 82 /hpf (0-5)
[2016-11-08 19:10] LABS: ALT 61 U/L (21-72); AST 41 U/L (17-59); Alkaline Phosphatase 226 U/L (38-126); Anion Gap 16 mmol/L; Blood Urea Nitrogen 18 mg/dL (9-20); Calcium 9.8 mg/dL (8.4-10.2); Carbon Dioxide 17 mmol/L (22-30); Chloride 110 mmol/L (98-107); Glucose 136 mg/dL (74-99); Non-African American GFR(MDRD) >60 (>60 ml/min/1.73 sqM); Potassium 4.1 mmol/L (3.5-5.1); Sodium 143 mmol/L (137-145); Total Bilirubin 1.3 mg/dL (0.2-1.3); Total Protein 6.9 g/dL (6.3-8.2)
--- NOTE | 2016-11-08 19:26 | XR ---
EXAMINATION TYPE: XR chest 2V DATE OF EXAM: 11/08/2016 COMPARISON: CT abdomen and pelvis dated 05/10/2016. HISTORY: Fever. Currently taking antibiotics for urinary tract infection. TECHNIQUE: Frontal and lateral views of the chest are obtained. FINDINGS: Extensive calcific pleural plaquing is seen at the right costophrenic angle and along the pleural surface of the posterior right lower lobe. Partial visualization of an anterior cervical fusi on device. There is no focal air space opacity, pleural effusion, or pneumothorax seen. The cardiac silhouette size is within normal limits. The osseous structures are intact. IMPRESSION: No acute cardiopulmonary process.
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
[2016-11-08] MEDS ORDERED: LEVOFLOXACIN 500 MG TAB PO STA (22:42)
[2016-11-08 22:53] VITALS: BP 130/82; PULSE 84; TEMP 98.8
== END 2016-11-08 22:57 | disposition home or self-care (01) ==
LOC: EC 17:46
DX: A41.9 Sepsis, unspecified organism (principal); N30.90 Cystitis, unspecified without hematuria; E78.5 Hyperlipidemia, unspecified; I10 Essential (primary) hypertension; I25.2 Old myocardial infarction; K21.9 Gastro-esophageal reflux disease without esophagitis; R40.2412 Glasgow coma scale score 13-15, at arrival to emergency department; Z86.73 Personal history of transient ischemic attack (TIA), and cerebral infarction without residual deficits; Z88.6 Allergy status to analgesic agent; Z79.82 Long term (current) use of aspirin; Z79.899 Other long term (current) drug therapy; Z87.891 Personal history of nicotine dependence
CPT/HCPCS: 99283; 96365; 96366 ×3; 36415; 80053; 83605; 85025; 81001; 87040; 87086; 71020; J2543

== ENCOUNTER 2016-11-10 20:07 | Inpatient (IN) | payer MEDICARE, BC ==
[2016-11-10] MEDS ORDERED: ACETAMINOPHEN TAB 325 MG TAB PO STA (20:35)
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
[2016-11-10 21:07] LABS: INR 1.1 (<1.2); Partial Thromboplastin Time 23.5 sec (22.0-30.0); Prothrombin Time 10.7 sec (9.0-12.0)
[2016-11-10 21:09] LABS: ALT 68 U/L (21-72); AST 49 U/L (17-59); Alkaline Phosphatase 374 U/L (38-126); Anion Gap 17 mmol/L; Blood Urea Nitrogen 14 mg/dL (9-20); Calcium 9.7 mg/dL (8.4-10.2); Carbon Dioxide 19 mmol/L (22-30); Chloride 107 mmol/L (98-107); Glucose 126 mg/dL (74-99); Non-African American GFR(MDRD) >60 (>60 ml/min/1.73 sqM); Potassium 4.2 mmol/L (3.5-5.1); Sodium 143 mmol/L (137-145); Total Bilirubin 0.9 mg/dL (0.2-1.3); Total Protein 7.1 g/dL (6.3-8.2)
--- NOTE | 2016-11-10 21:18 | XR ---
EXAMINATION TYPE: XR chest 1V portable DATE OF EXAM: 11/10/2016 COMPARISON: November 08, 2016 HISTORY: Fever TECHNIQUE: Single frontal view of the chest is obtained. FINDINGS: There is no interval change when compared to the radiograph of 2 days ago. Similar overall lung inflation pattern. No pneumothorax. No new findings. IMPRESSION: STABLE APPEARANCE. NO NEW FINDINGS.
[2016-11-10 21:21] LABS: Aty Lym Flag Slight; CH 32.9; CHCM 34.5; HCT 43.6 % (39.0-53.0); HDW 2.67; HGB 14.5 gm/dL (13.0-17.5); MCHC 33.3 g/dL (31.0-37.0); Mean Platelet Volume 7.5; RBC 4.54 m/uL (4.30-5.90); RDW 14.3 % (11.5-15.5); WBC 5.5 k/uL (3.8-10.6); WBC (Perox) 5.57
[2016-11-10 21:39] LABS: Add Differential Manual Differential
[2016-11-10 21:45] LABS: Band Neutrophils % 1.5 %; Manual Review Performed; Metamyelocytes % 1 %; Nucleated Red Blood Cells 0 /100 WBC (0-0); Reactive Lymphocytes Present; Total Cells Counted 200; Toxic Granulation Present
[2016-11-10 21:51] LABS: Appearance,Urine Clear (Clear); Bacteria,Urine Rare /hpf; Bilirubin,Urine Negative (Negative); Glucose,Urine (UA) Negative (Negative); Ketones,Urine Negative (Negative); Leukocyte Esterase,Urine Small (Negative); Mucus,Urine Rare /hpf; Nitrite,Urine Negative (Negative); PH, Urine 5.5 (5.0-8.0); Particle Count 3465; Protein,Urine 1+ (Negative); RBC,Urine 4 /hpf (0-5); Squamous Epithelial Cell,Urine <1 /hpf (0-4); UA Billing (MACRO vs. MICRO) MICRO; WBC,Urine 22 /hpf (0-5)
[2016-11-10] MEDS ORDERED: NALOXONE 0.4 MG/ML 1 ML VIAL IV PRN (22:58)
[2016-11-10] MEDS ORDERED: ACETAMINOPHEN TAB 325 MG TAB PO PRN (22:58)
[2016-11-10] MEDS ORDERED: NITROGLYCERIN SL TABS 0.4 MG TAB SUBLINGUAL PRN (23:01)
[2016-11-10] MEDS ORDERED: HYDROcodone/APAP 5-325MG 1 EACH TAB PO PRN (23:01)
[2016-11-10] MEDS ORDERED: LEVOFLOXACIN 750MG-D5W PMX 750 MG in DEXTROSE/WATER 1 150ML.BAG IVPB STA (23:03)
[2016-11-10 23:48] VITALS: BMI 23.0
[2016-11-11] MEDS ORDERED: LORazepam 0.5 MG TAB PO SCH ×2 (00:03→21:00)
[2016-11-11] MEDS: LORazepam 0.5 MG TAB PO SCH ×2 (01:01→21:01)
[2016-11-11] MEDS: SODIUM CHLORIDE 0.9% 1,000 ML IV SCH (01:02)
[2016-11-11] MEDS: PIPERACILLIN-TAZOBACTAM 3.375 GM in DEXTROSE/WATER 1 50ML.BAG IVPB SCH ×2 (01:02→07:23)
[2016-11-11 07:34] VITALS: RESP 16
[2016-11-11] MEDS: buPROPion SR 150 MG TABLET.ER PO SCH (08:06)
[2016-11-11] MEDS: amLODIPine 5 MG TAB PO SCH (08:06)
[2016-11-11] MEDS: PANTOPRAZOLE 40 MG TABLET PO SCH (08:06)
[2016-11-11] MEDS: ISOSORBIDE MONONITRATE ER 60 MG TAB.ER.24H PO SCH (08:06)
[2016-11-11] MEDS: ATENOLOL 25 MG TAB PO SCH (08:06)
[2016-11-11] MEDS: ASPIRIN 81 MG CHEW PO SCH (08:07)
[2016-11-11] MEDS ORDERED: FAMOTIDINE 20 MG TAB PO SCH (09:00)
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
--- NOTE | 2016-11-11 11:10 | US ---
EXAMINATION TYPE: US kidneys/renal and bladder DATE OF EXAM: 11/11/2016 COMPARISON: 07/21/2016. CLINICAL HISTORY: 70 year old male UTI, pyelonephritis. TECHNIQUE: Multiple sonographic images of the kidneys and bladder are obtained. FINDINGS: Right Kidney: 11.2 x 4.5 x 5.9 cm Left Kidney: 11.4 x 6.9 x 6.9 cm No hydronephrosis on either side. Right Kidney: Multiple cysts, largest measures 3.1 x 3.7 x 3.9 cm laterally. On 07/21/2016, the larg est was measured at 3.2 cm. Left Kidney: Multiple cysts, largest measures 6.1 x 3.8 x 3.8 cm in the midpole. There may be an anabell cent 3.9 cm mildly complex cyst for which six-month follow-up ultrasound is recommended. Underdistention of the bladder limits its evaluation. IMPRESSION: 1. No hydronephrosis. 2. Bilateral simple renal cysts. 3. However, there appears to be a mildly complex cyst in the left kidney with internal septations and possible nodularity. This is adjacent to the dominant 6.1 cm cyst. It is not measured by the sonogra pher so exact size is difficult to determine (estimated at 4.0 cm). Recommend 6 month follow-up ultra sound to reassess.
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
[2016-11-11] MEDS ORDERED: ATORVASTATIN 80 MG TAB PO SCH (21:00)
--- NOTE | 2016-11-11 22:54 | P.CON ---
Consult Note - . Consult date: 11/11/16 Assessment/Plan:: This is a 70-year-old male patient gives history that he started having pain with urination on Monday along with fever and shakes as well as increased frequency. He states he was up to the bathroom 20 times during the night. On Monday, he went to the [facility] and was diagnosed with a urinary tract infection. He states he was given 2 injections and then started on an antibiotic but he does not recall the name. It helped with the fever immediately but on Monday he started having temperatures again up to 103 with rigors and he vomited once. He came into [facility] emergency center where his antibiotics were changed to Levaquin. This urine culture is showing finalized with no growth. He states he was doing well after untill at 3 PM he started having fever and rigors again. He states his pain with urination and frequency are all improved. He did have some lower back pain which is also gone. He complains of weakness. No appetite problems. No further episodes of nausea, vomiting no problems with diarrhea. Patient came into [facility] emergency center on November 10 and his fever was 103.9, WBC 5.5. He was given ceftriaxone and Levaquin 1 dose of each and then started on Zosyn and [facility]. His urinalysis was clear, leukoesterase small, wbc's 22, clumps rare, bacteria rare. This urine culture is in process and blood cultures status received. Patient denies any previous problems with his prostate and denies any history of kidney stones. Please see the consult note as dictated by nurse practitioner Mrs. Pittmany Kay. This pleasant gentleman blistering to feel somewhat better. He has evidence of sepsis from the urinary system. He has urine culture has not been verified as Klebsiella pneumoniae. He was failing outpatient antibiotic therapy. Now showing improvement with hydration and intravenous ceftriaxone. Given the failure of his outpatient therapy may require a course of intravenous antibiotic therapy after discharge. Renal ultrasound showed be obtained to ensure there is no underlying obstruction his etiology for his significant urinary infection. The patient is somewhat anxious for discharge to home. But does clearly understand the importance of the need for his current treatment. His sepsis needs to be completely treated and controlled before his discharge to home. Patient agree. At this time I agree with evaluation, assessment and plan is dictated by nurse practitioner Mrs. Verna Villanueva.
[2016-11-11 22:55] VITALS: TEMP 97.9
[2016-11-12 07:54] VITALS: BP 150/77; PULSE 70
[2016-11-12] MEDS: SODIUM CHLORIDE 0.9% 1,000 ML IV SCH (09:04)
[2016-11-12] MEDS: ASPIRIN 81 MG CHEW PO SCH (09:07)
[2016-11-12] MEDS: ATENOLOL 25 MG TAB PO SCH (09:07)
[2016-11-12] MEDS: PANTOPRAZOLE 40 MG TABLET PO SCH (09:07)
[2016-11-12] MEDS: ISOSORBIDE MONONITRATE ER 60 MG TAB.ER.24H PO SCH (09:07)
[2016-11-12] MEDS: amLODIPine 5 MG TAB PO SCH (09:07)
[2016-11-12] MEDS: buPROPion SR 150 MG TABLET.ER PO SCH (09:07)
--- NOTE | 2016-11-12 11:20 | P.DS ---
Providers Date of admission: 11/10/16 22:58 Attending physician: Pedro Jorge Consults: 11/10/16 23:00 Consult Physician Routine Consulting Provider: Teddy Saleem Reason/Comments: fever. failed outpatient therapy. UTI Do you want consulting provider notified?: Yes Primary care physician: [facility] Course: 70-year-old gentleman admitted for urinary tract infection. Urine cultures are finalized that negative because patient was partially treated for urinary tract infection. Patient does have pansensitive Klebsiella in the urine. Patient failed therapy with libia quinolones because of which patient will be discharged on Ceftin for 7 days. Patient is afebrile since yesterday since he was started on Rocephin. PHYSICAL EXAMINATION: GENERAL: The patient is alert and oriented x3, not in any acute distress. Well developed, well nourished. HEENT: Pupils are round and equally reacting to light. EOMI. No scleral icterus. No conjunctival pallor. Normocephalic, atraumatic. No pharyngeal erythema. No thyromegaly. CARDIOVASCULAR: S1 and S2 present. No murmurs, rubs, or gallops. PULMONARY: Chest is clear to auscultation, no wheezing or crackles. ABDOMEN: Soft, nontender, nondistended, normoactive bowel sounds. No palpable organomegaly. MUSCULOSKELETAL: No joint swelling or deformity. EXTREMITIES: No cyanosis, clubbing, or pedal edema. NEUROLOGICAL: Gross neurological examination did not reveal any focal deficits. SKIN: No rashes. Sepsis: Secondary to urinary tract infection #2 benign cyst on ultrasound of the kidney which is chronic can be followed with repeat ultrasound in 6 months same thing was discussed with the patient's and patient. #3 hypertension: Continue with home medications blood pressure is well controlled not hypertensive at this point of time #4 gastroesophageal infectious disease #5 hyperlipidemia #6 coronary artery disease #7 cerebral vascular accident in the past Plan - Discharge Summary New Discharge Prescriptions: New Cefuroxime Axetil [Ceftin] 500 mg PO BID #14 tab Discontinued Levofloxacin [Levaquin] 750 mg PO DAILY #7 tab No Action amLODIPine [Norvasc] 5 mg PO DAILY Nitroglycerin Sl Tabs [Nitrostat] 0.4 mg SUBLINGUAL Q5M PRN PRN Reason: Chest Pain Isosorbide Mononitrate ER [Imdur] 60 mg PO DAILY Atenolol [Tenormin] 25 mg PO DAILY Pantoprazole Sodium [Protonix] 40 mg PO DAILY Hydrocodone/Acetaminophen [[place] 5-325] 1 tab PO Q6HR PRN #20 tab PRN Reason: Pain buPROPion SR [Wellbutrin Sr] 150 mg PO DAILY Aspirin EC [Ecotrin Low Dose] 81 mg PO DAILY Atorvastatin [Lipitor] 80 mg PO HS Discharge Medication List Atenolol [Tenormin] 25 mg PO DAILY 03/31/14 [History] Isosorbide Mononitrate ER [Imdur] 60 mg PO DAILY 03/31/14 [History] Nitroglycerin Sl Tabs [Nitrostat] 0.4 mg SUBLINGUAL Q5M PRN 03/31/14 [History] Pantoprazole Sodium [Protonix] 40 mg PO DAILY 03/31/14 [History] amLODIPine [Norvasc] 5 mg PO DAILY 03/31/14 [History] Hydrocodone/Acetaminophen [[place] 5-325] 1 tab PO Q6HR PRN #20 tab 10/08/15 [Rx] Aspirin EC [Ecotrin Low Dose] 81 mg PO DAILY 05/09/16 [History] Atorvastatin [Lipitor] 80 mg PO HS 05/09/16 [History] buPROPion SR [Wellbutrin Sr] 150 mg PO DAILY 05/09/16 [History] Cefuroxime Axetil [Ceftin] 500 mg PO BID #14 tab 11/12/16 [Rx] Follow up Appointment(s)/Referral(s): Claudio Harper DO [Primary Care Provider] - 3 Days Discharge Disposition: HOME SELF-CARE
== END 2016-11-12 12:10 | disposition home or self-care (01) | DRG 872 ==
LOC: EC 20:07 → 5MS5E 22:58
PROVIDERS: ADMIT Internal Medicine; ATTEND Internal Medicine
DX: A41.9 Sepsis, unspecified organism (principal); N39.0 Urinary tract infection, site not specified; N28.1 Cyst of kidney, acquired; R13.10 Dysphagia, unspecified; B96.1 Klebsiella pneumoniae [K. pneumoniae] as the cause of diseases classified elsewhere; I10 Essential (primary) hypertension; E78.5 Hyperlipidemia, unspecified; I25.2 Old myocardial infarction; K21.9 Gastro-esophageal reflux disease without esophagitis; I25.10 Atherosclerotic heart disease of native coronary artery without angina pectoris; Z16.39 Resistance to other specified antimicrobial drug; Z79.82 Long term (current) use of aspirin; Z79.891 Long term (current) use of opiate analgesic; Z79.899 Other long term (current) drug therapy; Z86.73 Personal history of transient ischemic attack (TIA), and cerebral infarction without residual deficits; Z87.891 Personal history of nicotine dependence; Z90.49 Acquired absence of other specified parts of digestive tract; Z98.1 Arthrodesis status; Z88.8 Allergy status to other drugs, medicaments and biological substances
CPT/HCPCS: 36415; 71010; 76770; 80053; 81001; 83605; 84484; 85025; 85610; 85730; 87040; 87086; 93005; 96365; 99285

== ENCOUNTER → 2017-01-23 | Outpatient (CLI) | payer MEDICARE, BC ==
[2017-01-23 10:15] LABS: Bilirubin, Delta 0.2 mg/dL (0.0-0.2); Total Bilirubin 1.1 mg/dL (0.2-1.3); Total Protein 7.6 g/dL (6.3-8.2)
--- NOTE | 2017-01-23 10:37 | US ---
EXAMINATION TYPE: US abdomen limited DATE OF EXAM: 01/23/2017 COMPARISON: 11/11/2016 CLINICAL HISTORY: Q45.3 Pancreas Divisum. GB removed 8-9 years ago EXAM MEASUREMENTS: Liver Length: 16.7 cm CBD: 1.0 cm CHD: 1.1 cm Right Kidney: 10.7 x 5.5 x 4.5 cm Pancreas: Not well visualized due to overlying bowel gas. Pancreatic head suboptimally seen. Within the visualized portions there is no pancreatic ductal dilatation. Liver: wnl Gallbladder: Surgically absent Evidence for sonographic Bray's sign: neg CBD: Dilated CHD: Dilated Right Kidney: Multiple cystic lesions seen. 1- lateral = 3.6 x 4.0 x 3.6 cm. 2- Medial = 2.4 x 1.6 x 2.4 cm. 3- Medial/LP= 3.1 x 3.4 x 2.1 cm IMPRESSION: 1. No pancreatic ductal dilatation and the visualized portions of the pancreas although there is subo ptimal visualization due to overlying bowel gas. 2. Right renal cysts. 3. Surgical absence of the gallbladder with postsurgical dilation of the common hepatic and common bi le ducts.
== END | disposition home or self-care (01) ==
LOC: RADUSWWP 08:56
DX: N28.1 Cyst of kidney, acquired (principal); K83.8 Other specified diseases of biliary tract; Q45.3 Other congenital malformations of pancreas and pancreatic duct; Z90.49 Acquired absence of other specified parts of digestive tract
CPT/HCPCS: 36415; 76705; 80076; 82150; 83690; 86301

== ENCOUNTER → 2017-03-23 | Outpatient (CLI) | payer MEDICARE, BC ==
[2017-03-23 10:51] LABS: Basophils # (A) 0.1 k/uL (0-0.2); Basophils % (A) 0 %; CH 32.4; CHCM 31.7; Eosinophils % (A) 0 %; HCT 51.4 % (39.0-53.0); HDW 2.34; HGB 15.7 gm/dL (13.0-17.5); Luc # (Auto) 0.17; Luc % (Auto) 1; Lymphocytes # (A) 0.8 k/uL (1.0-4.8); Lymphocytes % (A) 6 %; MCH 31.3 pg (25.0-35.0); MCHC 30.5 g/dL (31.0-37.0); MCV 102.8 fL (80.0-100.0); Macrocytosis Slight; Monocytes # (A) 0.7 k/uL (0-1.0); Monocytes % (A) 5 %; Neutrophils # (A) 11.4 k/uL (1.3-7.7); Neutrophils % (A) 86 %; RDW 15.7 % (11.5-15.5); WBC 13.2 k/uL (3.8-10.6); WBC (Perox) 13.02
[2017-03-23 10:58] LABS: ALT 349 U/L (21-72); AST 107 U/L (17-59); Alkaline Phosphatase 98 U/L (38-126); Anion Gap 14 mmol/L; Blood Urea Nitrogen 31 mg/dL (9-20); Calcium 10.4 mg/dL (8.4-10.2); Carbon Dioxide 27 mmol/L (22-30); Chloride 103 mmol/L (98-107); Glucose 120 mg/dL (74-99); Non-African American GFR(MDRD) >60 (>60 ml/min/1.73 sqM); Potassium 4.9 mmol/L (3.5-5.1); Sodium 144 mmol/L (137-145); Total Bilirubin 1.1 mg/dL (0.2-1.3); Total Protein 7.4 g/dL (6.3-8.2)
[2017-03-23 11:45] LABS: Appearance,Urine Clear (Clear); Bilirubin,Urine 1+ (Negative); Glucose,Urine (UA) Negative (Negative); Ketones,Urine Trace (Negative); Leukocyte Esterase,Urine Negative (Negative); Mucus,Urine Many /hpf; Nitrite,Urine Negative (Negative); Particle Count 9730; Protein,Urine 1+ (Negative); RBC,Urine 1 /hpf (0-5); Specific Gravity,Urine 1.033 (1.001-1.035); UA Billing (MACRO vs. MICRO) MICRO; WBC,Urine 6 /hpf (0-5)
== END | disposition home or self-care (01) ==
LOC: LABWHC1 10:05
PROVIDERS: ATTEND Internal Medicine Critical Care Medicine
DX: R21 Rash and other nonspecific skin eruption (principal); R53.83 Other fatigue; R53.81 Other malaise
CPT/HCPCS: 36415; 80053; 81001; 82533; 85025; 87040; 87086

== ENCOUNTER → 2017-03-28 | Outpatient (CLI) | payer MEDICARE, BC ==
[2017-03-28 12:48] LABS: Appearance,Urine Clear (Clear); Bilirubin,Urine Negative (Negative); Glucose,Urine (UA) Negative (Negative); Ketones,Urine Negative (Negative); Leukocyte Esterase,Urine Negative (Negative); Nitrite,Urine Negative (Negative); PH, Urine 5.5 (5.0-8.0); Protein,Urine Trace (Negative); Specific Gravity,Urine 1.022 (1.001-1.035); UA Billing (MACRO vs. MICRO) CHEM; Urobilinogen,Urine <2.0 mg/dL (<2.0)
[2017-03-28 12:57] LABS: Basophils % (A) 0 %; CH 32.9; CHCM 33.7; Eosinophils % (A) 0 %; HCT 48.2 % (39.0-53.0); HDW 2.46; HGB 15.8 gm/dL (13.0-17.5); Luc # (Auto) 0.13; Luc % (Auto) 1; Lymphocytes # (A) 0.8 k/uL (1.0-4.8); Lymphocytes % (A) 7 %; MCHC 32.7 g/dL (31.0-37.0); Mean Platelet Volume 6.4; Monocytes # (A) 0.4 k/uL (0-1.0); Monocytes % (A) 4 %; Neutrophils # (A) 9.5 k/uL (1.3-7.7); Neutrophils % (A) 87 %; RBC 4.92 m/uL (4.30-5.90); RDW 14.2 % (11.5-15.5); WBC 10.8 k/uL (3.8-10.6); WBC (Perox) 11.25
[2017-03-28 13:00] LABS: ALT 219 U/L (21-72); AST 69 U/L (17-59); Alkaline Phosphatase 80 U/L (38-126); Amylase 103 U/L (30-110); Anion Gap 10 mmol/L; Blood Urea Nitrogen 26 mg/dL (9-20); Calcium 9.7 mg/dL (8.4-10.2); Carbon Dioxide 28 mmol/L (22-30); Chloride 102 mmol/L (98-107); Glucose 111 mg/dL (74-99); Non-African American GFR(MDRD) >60 (>60 ml/min/1.73 sqM); Potassium 4.6 mmol/L (3.5-5.1); Sodium 140 mmol/L (137-145); Total Bilirubin 1.3 mg/dL (0.2-1.3); Total Protein 6.8 g/dL (6.3-8.2)
== END | disposition home or self-care (01) ==
LOC: LABWHC1 12:22
PROVIDERS: ATTEND Internal Medicine Critical Care Medicine
DX: R10.9 Unspecified abdominal pain (principal); R53.1 Weakness
CPT/HCPCS: 36415; 80053; 81003; 82150; 83690; 85025; 86677; 87086

== ENCOUNTER → 2017-05-18 | Outpatient (CLI) | payer MEDICARE, BC ==
--- NOTE | 2017-05-18 09:38 | US ---
EXAMINATION TYPE: US kidneys/renal and bladder DATE OF EXAM: 05/18/2017 COMPARISON: US CLINICAL HISTORY: Renal cyst N28.1. EXAM MEASUREMENTS: Right Kidney: 11.1 x 5.9 x 5.9 cm Left Kidney: 11.4 x 6.4 x 5.5 cm Right Kidney: multiple cysts, largest measures 3.0 x 4.1 x 3.3 cm laterally. Left Kidney: multiple cysts, largest measures 8.7 x 7.2 x 7.8 cm and has a septation . Bladder: wnl Bilateral Jets seen: only right jet seen There is no evidence for hydronephrosis at this point in time. No nephrolithiasis is seen. No james s are identified. The urinary bladder is anechoic. Bilateral ureteral jets are seen. IMPRESSION: 1. Septated cyst left kidney with slight wall irregularity. Consider CT correlation. 2. Otherwise simple cysts bilaterally.
== END | disposition home or self-care (01) ==
LOC: RADUSWWP 08:33
PROVIDERS: ATTEND Urology
DX: N28.1 Cyst of kidney, acquired (principal)
CPT/HCPCS: 76770

== ENCOUNTER → 2017-05-22 | Outpatient (CLI) | payer MEDICARE, BC ==
[2017-05-22 08:50] LABS: ALT 31 U/L (21-72); AST 23 U/L (17-59); Cholesterol 150 mg/dL (<200); HDL Cholesterol 46 mg/dL (40-60); LDL Cholesterol,Calculated 80 mg/dL (0-99); Triglycerides 120 mg/dL (<150)
== END | disposition home or self-care (01) ==
LOC: LABWHC1 07:41
PROVIDERS: ATTEND Internal Medicine Interventional Cardiology
DX: E78.2 Mixed hyperlipidemia (principal)
CPT/HCPCS: 36415; 80061; 84450; 84460

== ENCOUNTER → 2017-06-09 | Outpatient (CLI) | payer MEDICARE, BC ==
[2017-06-09 12:26] LABS: Blood Urea Nitrogen 25 mg/dL (9-20)
--- NOTE | 2017-06-09 13:22 | CT ---
EXAMINATION TYPE: CT abdomen wo/w con DATE OF EXAM: 06/09/2017 COMPARISON: Ultrasound 05/18/2017, CT scan 05/10/2016 HISTORY: Cyst of kidney-acquired CT DLP: 1354 mGycm Automated exposure control for dose reduction was used. TECHNIQUE: Helical acquisition of images was performed from the lung bases through the top of iliac crest to include entire abdomen. CONTRAST: Performed with Oral Contrast and without and with IV Contrast, patient injected with 100 ml mL of Omn ipaque 300. FINDINGS: LUNG BASES: Extensive of pleural plaque is noted.. Coronary artery calcification noted. LIVER/GB: Postcholecystectomy changes noted. PANCREAS: Mild prominence the pancreatic duct with no evidence of pancreatic mass. SPLEEN: No significant abnormality is seen. ADRENALS: No significant abnormality is seen. KIDNEYS: Bilateral simple appearing renal cysts are noted measuring Hounsfield units less than 15. La rgest is seen in the left measuring 6.8 cm. Single septation is noted on the larger cyst no wall thic kening.. No mural nodularity. All cysts measure less than 15 Hounsfield units bilaterally. BOWEL: No significant abnormality is seen. LYMPH NODES: No significant abnormality is seen. OSSEOUS STRUCTURES: Hypertrophic and degenerative change of the spine. Chronic appearing superior en dplate deformity L1 and T12. OTHER: Aorta of normal caliber extensive atherosclerotic change of the vasculature. IMPRESSION: 1. There are bilateral simple renal cysts. There is a larger 6.8 cm left renal lesion which measures fluid attenuation and contains a septation compatible with a Bosniak classification II cyst. It appea rs stable in size and appearance from the CT scan of 2017. No mural nodularity identified.
== END | disposition home or self-care (01) ==
LOC: RADCTMAIN 11:46
PROVIDERS: ATTEND Urology
DX: N28.1 Cyst of kidney, acquired (principal); N28.9 Disorder of kidney and ureter, unspecified
CPT/HCPCS: 82565; 84520; 74170; 36415; Q9967

== ENCOUNTER 2017-08-15 13:30 | Day surgery (SDC) | payer MEDICARE, BC ==
[2017-08-14 14:57] VITALS: BMI 23.8
[~2017-08-15 13:30] MED LIST: AMPICILLIN-SULBACTAM 3 GM in SODIUM CHLORIDE 0.9% 100 ML IVPB STA
[2017-08-15 13:58] VITALS: PULSE 72; RESP 20; TEMP 98.4
[2017-08-15] MEDS ORDERED: LIDOCAINE 2% INJ 20 MG/ML SQ ONE (14:17)
[2017-08-15] MEDS ORDERED: AMPICILLIN-SULBACTAM 1.5 GM in SODIUM CHLORIDE 0.9% 50 ML IVPB SCH (14:30)
--- NOTE | 2017-08-15 15:23 | IR ---
EXAMINATION TYPE: IR cvc insert >=5 years DATE OF EXAM: 08/15/2017 COMPARISON: NONE CLINICAL HISTORY: Infection Needs long-term intravenous access for antibiotics. PROCEDURE: After informed consent, the skin overlying the left brachial vein was localized with ultrasound and n oted to be compressible and patent. An ultrasound image was obtained and submitted on the patient's chart. The overlying skin was prepped and draped and Lidocaine was used for local anesthesia. A ski n salvatore was made with a scalpel. Access was gained to the vein under ultrasound guidance with a 21 ga uge needle and a 0.018 inch wire was advanced. Access site was dilated with Peel-Away sheath and cat heter tailored to the appropriate length and advanced such that the distal tip is at the cavoatrial j unction. Spot image was obtained verifying placement. Catheter was fixed to the skin and a sterile dressing was placed following hemostasis. Catheter was aspirated and flushed with saline. Patient w as discharged in stable condition without complication. Maximal barrier technique is utilized. Ultra sound image is documented on the chart. Ultrasound used with sterile technique. Fluoro time and fluoroscopic images submitted to document procedure: 27 intraoperative images, 0.1 mi nutes fluoroscopy time IMPRESSION: STATUS POST ULTRASOUND AND FLUOROSCOPIC GUIDED PICC LINE PLACEMENT, READY FOR USE. THIS PROCEDURE WAS PERFORMED BY THE UNDERSIGNED.
[2017-08-15 16:12] VITALS: BP 129/85
== END 2017-08-15 15:50 | disposition home or self-care (01) ==
LOC: CATHCVL 13:30
PROVIDERS: ATTEND Radiology Diagnostic Radiology
DX: L03.119 Cellulitis of unspecified part of limb (principal); J44.9 Chronic obstructive pulmonary disease, unspecified; F41.9 Anxiety disorder, unspecified; I10 Essential (primary) hypertension; E78.5 Hyperlipidemia, unspecified; K21.9 Gastro-esophageal reflux disease without esophagitis; I25.2 Old myocardial infarction; Z86.73 Personal history of transient ischemic attack (TIA), and cerebral infarction without residual deficits; Z79.82 Long term (current) use of aspirin; Z79.899 Other long term (current) drug therapy; Z87.891 Personal history of nicotine dependence
CPT/HCPCS: 36569; 76937; 77001; C1751; C1769; J2001; J0295

== ENCOUNTER 2017-08-16 17:54 | Inpatient (IN) | payer MEDICARE, BC ==
[2017-08-16] MEDS ORDERED: MORPHINE SULFATE 4 MG/ML SYRINGE IVP STA ×2 (18:41→20:25)
[2017-08-16] MEDS ORDERED: ONDANSETRON 4 MG/2 ML VIAL IVP STA (18:41)
[2017-08-16] MEDS ORDERED: ACETAMINOPHEN TAB 500 MG TAB PO STA (18:41)
[2017-08-16] MEDS ORDERED: RX INFO: IV CONTRAST WAS GIVEN 1 EACH MISC MISCELLANE PRN (18:48)
[2017-08-16] MEDS ORDERED: cefTRIAXone IN SWFI 2,000 MG/20 ML SYRINGE IVP STA (18:52)
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
[2017-08-16 20:08] LABS: Basophils # (A) 0.1 k/uL (0-0.2); Basophils % (A) 1 %; Eosinophils # (A) 0.1 k/uL (0-0.7); Eosinophils % (A) 2 %; HCT 38.7 % (39.0-53.0); HGB 13.1 gm/dL (13.0-17.5); Lymphocytes # (A) 1.7 k/uL (1.0-4.8); Lymphocytes % (A) 26 %; MCH 32.9 pg (25.0-35.0); MCHC 33.9 g/dL (31.0-37.0); Mean Platelet Volume 6.4; Monocytes # (A) 0.5 k/uL (0-1.0); Monocytes % (A) 7 %; Neutrophils % (A) 62 %; Platelet Count 358 k/uL (150-450); RBC 3.99 m/uL (4.30-5.90); RDW 13.7 % (11.5-15.5); WBC 6.4 k/uL (3.8-10.6)
[2017-08-16 20:20] LABS: Albumin 4.4 g/dL (3.5-5.0); Calcium 9.6 mg/dL (8.4-10.2); Potassium 4.1 mmol/L (3.5-5.1); Total Protein 6.5 g/dL (6.3-8.2)
--- NOTE | 2017-08-16 21:25 | CT ---
EXAMINATION TYPE: CT lower leg RT w con DATE OF EXAM: 08/16/2017 COMPARISON: NONE HISTORY: Right medial lower leg/ankle pain and cellulitis x2 weeks. CT DLP: 298.3 mGycm Automated exposure control for dose reduction was used. CONTRAST: Performed with IV Contrast, patient injected with 100ml mL of Isovue 300. Contrast-enhanced CT of the right ankle was performed from the distal one third right tibia and fibul a through the ankle. Bone and soft tissue window settings are submitted as well as 3-D reconstruction performed at a separate workstation. FINDINGS: There is a large partially imaged fluid collection noted along the medial aspect of the tibia which m easures 11.6 x 20.1 x 5.0 cm. This may reflect seroma, hematoma or an infected collection with absces s. No internal foci of air seen at this time. There is soft tissue edema noted compatible with cellul itis. Postoperative changes with screw fixation of the medial malleolus. Bony fragmentation identified. No acute fractures are identified at this time. Ankle mortise is intact. No evidence for osteomyelitis at this time. IMPRESSION: 1. Large partially imaged fluid collection along the medial aspect of the tibia may reflect a seroma, hematoma however infected collection is not excluded. Superimposed cellulitis noted.
[2017-08-16] MEDS ORDERED: NALOXONE 0.4 MG/ML 1 ML VIAL IV PRN (22:15)
[2017-08-16] MEDS ORDERED: ACETAMINOPHEN TAB 325 MG TAB PO PRN (22:15)
[2017-08-16] MEDS ORDERED: VANCOMYCIN IV PER PHARMACY 1 EACH MISC MISCELLANE PRN (22:23)
[2017-08-16] MEDS ORDERED: NITROGLYCERIN SL TABS 0.4 MG TAB SUBLINGUAL PRN (22:31)
[2017-08-16] MEDS ORDERED: VANCOMYCIN 1,500 MG in SODIUM CHLORIDE 0.9% 250 ML IVPB ONE (22:45)
[2017-08-16] MEDS: SODIUM CHLORIDE 0.9% 1,000 ML IV SCH (23:01)
[2017-08-16] MEDS ORDERED: TEMAZEPAM 7.5 MG CAP PO PRN (23:04)
[2017-08-16 23:44] VITALS: BMI 24.3
[2017-08-17] MEDS: MORPHINE SULFATE 4 MG/ML SYRINGE IV PRN ×4 (03:50→16:32)
[2017-08-17] MEDS: HYDROcodone/APAP 5-325MG 1 EACH TAB PO PRN ×3 (07:13→21:47)
[2017-08-17] MEDS: ALPRAZolam 0.5 MG TAB PO SCH (08:06)
[2017-08-17] MEDS: PANTOPRAZOLE 40 MG TABLET PO SCH (08:06)
[2017-08-17] MEDS: VANCOMYCIN 1,250 MG in SODIUM CHLORIDE 0.9% 250 ML IVPB SCH ×2 (08:06→20:02)
[2017-08-17] MEDS: amLODIPine 5 MG TAB PO SCH (08:06)
[2017-08-17] MEDS: ATORVASTATIN 80 MG TAB PO SCH (08:07)
[2017-08-17] MEDS: ASPIRIN 81 MG PO SCH (08:07)
[2017-08-17] MEDS: ATENOLOL 25 MG TAB PO SCH (08:07)
[2017-08-17] MEDS: buPROPion SR 150 MG TABLET.ER PO SCH (08:07)
[2017-08-17] MEDS: ISOSORBIDE MONONITRATE ER 60 MG TAB.ER.24H PO SCH (08:08)
[2017-08-17] MEDS: HEPARIN SODIUM,PORCINE 5,000 UNIT/ML 1 ML VIAL SQ SCH ×2 (08:08→21:47)
[2017-08-17] MEDS ORDERED: FAMOTIDINE 20 MG TAB PO SCH (09:00)
[2017-08-17] MEDS ORDERED: LIDOCAINE 2% INJ 20 MG/ML (20 ML MDV) SQ STA (10:16)
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
[2017-08-17] MEDS: MEROPENEM 1 GM in SODIUM CHLORIDE 0.9% 100 ML IVPB SCH ×2 (11:16→21:50)
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
[2017-08-17] MEDS: SODIUM CHLORIDE 0.9% 1,000 ML IV SCH ×2 (12:27→16:32)
--- NOTE | 2017-08-18 00:42 | CONS ---
CONSULTATION DATE OF CONSULTATION: 08/17/2017. REASON FOR CONSULTATION: Right leg swelling and a question of an abscess. HISTORY OF PRESENT ILLNESS: The patient is a 71-year-old male who apparently scratched his leg on the part of the boot and was then for about 2 weeks ago. Since then, he noticed the legs to be getting more swollen and red and painful. Pain described to be throbbing, 7 of 10, and no radiation with worsening swelling and redness. He did present to the [facility] ER. The patient has been evaluated by the ER physician the patient did have lower extremity CT which did shows wound partially image of a fluid collection mid aspect of the tibia which is 11.6 and 2.185 cm, question of seroma versus hematoma. The patient did not have any high-grade fever. His temperature has 199.3, white count was normal at 6.4. The patient has been evaluated by Orthopedics. The patient did have bedside drainage of 90 fluid collection which are noted to be hematoma. Cultures has been obtained from the same the patient 1 was started on vancomycin with concern for possible infected hematoma infected. ID was consulted for further recommendation regarding antibiotic therapy. REVIEW OF SYSTEMS: CONSTITUTIONAL: Positive for weakness and chills but denies any high-grade fever. Eyes no complaint. ENT no complaint. Respiratory no complaint. Cardiovascular no complaint. Genitourinary no complaint. Gastrointestinal: No complaint musculoskeletal as per HPI. Integumentary as per HPI. Psychiatric: No complaint. PSYCHOLOGICAL: No complaint. Neurologic no complaint. PAST MEDICAL HISTORY: COPD, CVA, TIA and dysphagia, reflux disease, hyperlipidemia, hypertension, MA, pancreatitis when. PAST SURGERY HISTORY: Back surgery, cholecystectomy, heart catheterization, spine fusion, jaw surgery with plate. SOCIAL HISTORY: Remote smoker, quit back in 05/2016 1. No drinking or drug use. FAMILY HISTORY: Mother with history of cancer, though not disclosed no type. ALLERGIES: To nonsteroidal anti-inflammatory medication. MEDICATION: Restoril, Protonix, Nitrostat, Narcan morphine sulfate, meropenem 1 g q.12 Imdur, heparin, Wellbutrin, Lipitor to Maxi, aspirin, Norvasc, Xanax, Tylenol. EXAMINATION: Blood pressure is 140/80 with a pulse of 79, temperature 98.1 he is 94% weight description is a elderly male lying in bed in no distress. No tachypnea or accessory muscle of respiration use. HEENT: Shows slight pallor. No scleral icterus. Oral mucosa is dry. No evidence with no thrush. Neck trachea central, no thyromegaly lungs. Unlabored breathing, clear to auscultation anteriorly. No wheeze or crackle heart S1, S2. Regular rate and rhythm and rhythm. ABDOMEN: Soft, no tenderness. No guarding. Right leg is currently dressed up with an Gerry after the surgical procedure. The dressing was not open with no drainage on the dressing. Neurological patient is awake, alert, oriented and affect normal. LABS: Hemoglobin is 13.1, white count 6.4, BUN of 15, creatinine 1.0. Electrolytes have been normal. It is 2.5 and 1.2. Liver enzymes are normal. Wound culture obtained currently pending. DIAGNOSTIC IMPRESSION AND PLAN: Patient admitted to the hospital with right leg pain swelling and redness started after trauma in the office in about 2 weeks ago the patient who is status post bedside 1 drainage of the same is more likely into hematoma clinic suspicious for infected hematoma left but not entirely excluded emboli from a gram-positive skin libia less likely a gram-negative infection. PLAN: 1. Vancomycin pharmacy to dose target of 15 while waiting for this cultures to be finalized. 2. We will discontinue the meropenem as last service for a gram-negative infection. 3. We will follow up on his clinical condition and culture to further adjust medication if needed thank you for this consultation. Will follow this patient with you. MMODL / IJN: [id number] /
[2017-08-18] MEDS: SODIUM CHLORIDE 0.9% 1,000 ML IV SCH ×3 (07:27→20:48)
[2017-08-18] MEDS: PANTOPRAZOLE 40 MG TABLET PO SCH (07:38)
[2017-08-18] MEDS: VANCOMYCIN 1,250 MG in SODIUM CHLORIDE 0.9% 250 ML IVPB SCH ×2 (07:38→20:47)
[2017-08-18] MEDS: ALPRAZolam 0.5 MG TAB PO SCH (07:38)
[2017-08-18] MEDS: ATORVASTATIN 80 MG TAB PO SCH (07:39)
[2017-08-18] MEDS: ISOSORBIDE MONONITRATE ER 60 MG TAB.ER.24H PO SCH (07:39)
[2017-08-18] MEDS: ATENOLOL 25 MG TAB PO SCH (07:39)
[2017-08-18] MEDS: amLODIPine 5 MG TAB PO SCH (07:39)
[2017-08-18] MEDS: buPROPion SR 150 MG TABLET.ER PO SCH (07:39)
[2017-08-18 07:57] LABS: HGB 12.2 gm/dL (13.0-17.5); MCH 32.5 pg (25.0-35.0); MCV 98.6 fL (80.0-100.0); Mean Platelet Volume 7.1; Platelet Count 263 k/uL (150-450); RBC 3.75 m/uL (4.30-5.90); RDW 13.3 % (11.5-15.5); WBC 5.7 k/uL (3.8-10.6)
[2017-08-18 08:09] LABS: Anion Gap 9 mmol/L; Blood Urea Nitrogen 12 mg/dL (9-20); Calcium 9.3 mg/dL (8.4-10.2); Carbon Dioxide 29 mmol/L (22-30); Chloride 105 mmol/L (98-107); Glucose 101 mg/dL (74-99); Potassium 4.2 mmol/L (3.5-5.1); Sodium 143 mmol/L (137-145)
--- NOTE | 2017-08-18 08:19 | P.PN ---
Subjective Progress Note Date: 08/18/17 Principal diagnosis: Hematoma right lower leg. Cellulitis right lower extremity. This is a 71-year-old male who is status post bedside I&D of hematoma to the right lower leg. His cellulitis is improving today. He states the pain is significantly improved from yesterday. He reports no new complaints or concerns. He is hoping for discharge to home today. Objective - Vital Signs Vital signs: Vital Signs Temp 98.4 F 08/18/17 07:00 Pulse 83 08/18/17 07:00 Resp 20 08/18/17 07:00 BP 151/87 08/18/17 07:00 Pulse Ox 95 08/18/17 07:00 Intake & Output 08/17/17 08/18/17 08/18/17 18:59 06:59 18:59 Intake Total 550 Balance 550 Weight 70.5 kg Intake: Intake, IV Titration 550 Amount Meropenem 1 gm In Sodium 100 Chloride 0.9% 100 ml @ 200 mls/hr IVPB Q12HR [facility] Rx#:[id number] Sodium Chloride 0.9% 1, 200 000 ml @ 100 mls/hr IV . Q10H [facility] Rx#:[id number] Vancomycin 1,500 mg In 250 Sodium Chloride 0.9% 250 ml @ 125 mls/hr IVPB ONCE ONE Rx#:[id number] Other: Voiding Method Toilet Toilet Toilet # Voids 3 1 # Bowel Movements 2 - Exam This is a pleasant 71-year-old male in no acute distress. He is alert and oriented 3. Exam of the lower extremity reveals that the hematoma has been decompressed. There is still some drainage of old blood from the incision. Erythema is significantly improved. He has full foot and ankle motion without difficulty or pain. Neurovascular status to the right lower extremity is intact. Dressing is changed. - Labs CBC & Chem 7: 08/18/17 07:36 08/16/17 19:43 Labs: Abnormal Lab Results - Last 24 Hours (Table) 08/18/17 Range/Units 07:36 RBC 3.75 L (4.30-5.90) m/uL Hgb 12.2 L (13.0-17.5) gm/dL Hct 37.0 L (39.0-53.0) % Microbiology - Last 24 Hours (Table) 08/17/17 10:47 Gram Stain - Preliminary Leg - Right Wound Culture - Preliminary 08/16/17 19:43 Blood Culture - Preliminary Blood No Growth after 24 hours 08/17/17 10:47 Anaerobic Culture - Preliminary Leg - Right Assessment and Plan (1) Hematoma of right lower extremity Current Visit: Yes Status: Acute Code(s): S80.11XA - CONTUSION OF RIGHT LOWER LEG, INITIAL ENCOUNTER SNOMED Code(s): 188780352 (2) Cellulitis Current Visit: Yes Status: Acute Code(s): L03.90 - CELLULITIS, UNSPECIFIED SNOMED Code(s): 594413484 Plan: The clinical findings are discussed with the patient. The patient is evaluated by Dr. Clements as well. He may be discharged from an orthopedic standpoint. Antibiotics per infectious disease. He is to change dressing daily or more often if needed. He is to follow-up in our office in 1 week for reevaluation. He is to call our office or if there are problems or questions regarding his care.
[2017-08-18] MEDS: HEPARIN SODIUM,PORCINE 5,000 UNIT/ML 1 ML VIAL SQ SCH ×2 (10:11→20:47)
[2017-08-18] MEDS: ASPIRIN 81 MG PO SCH (10:11)
--- NOTE | 2017-08-18 10:54 | P.DS ---
Providers Date of admission: 08/16/17 22:15 Attending physician: Carolina Renee Consults: 08/16/17 22:16 Consult Physician Routine Consulting Provider: Nicole Salgado Consult Reason/Comments: Leg cellulitis. Possible abscess. Failed outpatient treatment. Do you want consulting provider notified?: Already Contacted 08/16/17 22:17 Consult Physician Routine Consulting Provider: Miguel Angel Lowry Consult Reason/Comments: Leg cellulitis. Possible abscess. Do you want consulting provider notified?: Yes 08/16/17 22:24 Consult Physician Routine Consulting Provider: Claudio Harper Consult Reason/Comments: your patient Do you want consulting provider notified?: Already Contacted Primary care physician: Claudio Harper [facility] Hospital Course: 71-year-old the male admitted for an abscess in the right anterior edward area which is probably a hematoma which cannot infected. Patient underwent incision and drainage and wound cultures are still pending since patient received antibiotics for few days I'm not expecting wound cultures to be positive, patient is on IV vancomycin at this point of time. Infectious disease evaluated the patient if infectious disease clears him and if they can recommend antibiotics for outpatient as patient wished patient will be discharged today with infectious disease as an outpatient PHYSICAL EXAMINATION: GENERAL: The patient is alert and oriented x3, not in any acute distress. Well developed, well nourished. HEENT: Pupils are round and equally reacting to light. EOMI. No scleral icterus. No conjunctival pallor. Normocephalic, atraumatic. No pharyngeal erythema. No thyromegaly. CARDIOVASCULAR: S1 and S2 present. No murmurs, rubs, or gallops. PULMONARY: Chest is clear to auscultation, no wheezing or crackles. ABDOMEN: Soft, nontender, nondistended, normoactive bowel sounds. No palpable organomegaly. MUSCULOSKELETAL: No joint swelling or deformity. EXTREMITIES: No cyanosis, clubbing, or pedal edema. Right anterior ideation post incision and drainage and post surgical packing and Gerry bandage NEUROLOGICAL: Gross neurological examination did not reveal any focal deficits. SKIN: No rashes. Assessment and Plan Plan: -Cellulitis and infected hematoma of the right leg secondary to injury with the hardware: Local wound care and antibiotic management as per infectious disease -Lactic acidosis secondary to sepsis from possible infected hematoma, improved now -Hypertension -Hyperlipidemia -Gastroesophageal reflux disease -Depression Patient Condition at Discharge: Fair Plan - Discharge Summary Discharge Rx Participant: No New Discharge Prescriptions: No Action amLODIPine [Norvasc] 5 mg PO DAILY Nitroglycerin Sl Tabs [Nitrostat] 0.4 mg SUBLINGUAL Q5M PRN PRN Reason: Chest Pain Isosorbide Mononitrate ER [Imdur] 60 mg PO DAILY Atenolol [Tenormin] 25 mg PO DAILY Pantoprazole Sodium [Protonix] 40 mg PO DAILY buPROPion SR [Wellbutrin Sr] 150 mg PO DAILY Aspirin EC [Ecotrin Low Dose] 81 mg PO DAILY Atorvastatin [Lipitor] 80 mg PO DAILY ALPRAZolam [Xanax] 0.5 mg PO DAILY Discharge Medication List Atenolol [Tenormin] 25 mg PO DAILY 03/31/14 [History] Isosorbide Mononitrate ER [Imdur] 60 mg PO DAILY 03/31/14 [History] Nitroglycerin Sl Tabs [Nitrostat] 0.4 mg SUBLINGUAL Q5M PRN 03/31/14 [History] Pantoprazole Sodium [Protonix] 40 mg PO DAILY 03/31/14 [History] amLODIPine [Norvasc] 5 mg PO DAILY 03/31/14 [History] Aspirin EC [Ecotrin Low Dose] 81 mg PO DAILY 05/09/16 [History] Atorvastatin [Lipitor] 80 mg PO DAILY 05/09/16 [History] buPROPion SR [Wellbutrin Sr] 150 mg PO DAILY 05/09/16 [History] ALPRAZolam [Xanax] 0.5 mg PO DAILY 08/14/17 [History] Follow up Appointment(s)/Referral(s): Jamilah Haile PAC [PHYSICIAN TRIM DIE MAKER] - 1 Week Claudio Harper DO [Primary Care Provider] - 1-2 days Activity/Diet/Wound Care/Special Instructions: Change dressing daily, more often if needed. Dressing supplies: 4 x 4 gauze, ABD pads, Kerlix or Gracie, Gerry wrap. Antibiotics per infectious disease. Discharge Disposition: HOME SELF-CARE
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
[2017-08-18] MEDS: HYDROcodone/APAP 5-325MG 1 EACH TAB PO PRN (17:26)
--- NOTE | 2017-08-18 18:37 | PN ---
PROGRESS NOTE DATE OF SERVICE: 08/18/2017 REASON FOR FOLLOWUP: Right leg hematoma with a question of possible infected hematoma. INTERVAL HISTORY: The patient is afebrile. He is breathing comfortably. Denies having significant chest pain or cough. Pain to the right leg is currently improved. No nausea, vomiting, abdominal pain or any diarrhea. PHYSICAL EXAMINATION: Blood pressure is 101/62 with a pulse of 78, temperature 98.3. He is 92% on room air. General description is an elderly male lying in bed in no distress. RESPIRATORY SYSTEM: Unlabored breathing. Clear to auscultation anteriorly. HEART: S1, S2. Regular rate and rhythm. ABDOMEN: Soft. No tenderness. RIGHT LEG: After removal of the dressing, he did have some bleeding, but no purulent secretion was noted. LABS: Hemoglobin is 12.2, white count 5.7, BUN of 20, creatinine 0.67. Culture has been negative so far. Blood culture negative. DIAGNOSTIC IMPRESSION AND PLAN: Patient with right leg hematoma with a question of possible infected hematoma. However, the patient is not running any fever. White count is normal. His culture remains negative. He will be able to go home on a short course of oral antibiotic and the PICC can be discontinued. Continue with supportive care. MMODL / IJN: [id number] /
[2017-08-18] MEDS: MORPHINE ORAL SOLN 10 MG/5 ML CUP PO PRN (18:49)
[2017-08-19] MEDS: HYDROcodone/APAP 5-325MG 1 EACH TAB PO PRN ×2 (04:47→13:56)
[2017-08-19] MEDS ORDERED: VANCOMYCIN TROUGH DUE 1 EACH MISC MISCELLANE ONE (07:00)
[2017-08-19] MEDS: buPROPion SR 150 MG TABLET.ER PO SCH (08:10)
[2017-08-19] MEDS: ISOSORBIDE MONONITRATE ER 60 MG TAB.ER.24H PO SCH (08:10)
[2017-08-19] MEDS: HEPARIN SODIUM,PORCINE 5,000 UNIT/ML 1 ML VIAL SQ SCH ×2 (08:10→20:26)
[2017-08-19] MEDS: ATORVASTATIN 80 MG TAB PO SCH (08:10)
[2017-08-19] MEDS: ATENOLOL 25 MG TAB PO SCH (08:10)
[2017-08-19] MEDS: ASPIRIN 81 MG PO SCH (08:11)
[2017-08-19] MEDS: amLODIPine 5 MG TAB PO SCH (08:11)
[2017-08-19] MEDS: PANTOPRAZOLE 40 MG TABLET PO SCH (08:11)
[2017-08-19] MEDS: VANCOMYCIN 1,250 MG in SODIUM CHLORIDE 0.9% 250 ML IVPB SCH ×2 (08:11→20:26)
[2017-08-19] MEDS: ALPRAZolam 0.5 MG TAB PO SCH (08:12)
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
[2017-08-19] MEDS: SODIUM CHLORIDE 0.9% 1,000 ML IV SCH ×2 (12:06→20:26)
[2017-08-19] MEDS: MORPHINE ORAL SOLN 10 MG/5 ML CUP PO PRN (15:56)
[2017-08-20 07:23] VITALS: BP 159/81; PULSE 74; RESP 16; TEMP 98.3
[2017-08-20] MEDS: buPROPion SR 150 MG TABLET.ER PO SCH (07:25)
[2017-08-20] MEDS: ASPIRIN 81 MG PO SCH (07:25)
[2017-08-20] MEDS: HEPARIN SODIUM,PORCINE 5,000 UNIT/ML 1 ML VIAL SQ SCH (07:25)
[2017-08-20] MEDS: PANTOPRAZOLE 40 MG TABLET PO SCH (07:25)
[2017-08-20] MEDS: ISOSORBIDE MONONITRATE ER 60 MG TAB.ER.24H PO SCH (07:25)
[2017-08-20] MEDS: amLODIPine 5 MG TAB PO SCH (07:25)
[2017-08-20] MEDS: VANCOMYCIN 1,250 MG in SODIUM CHLORIDE 0.9% 250 ML IVPB SCH (07:25)
[2017-08-20] MEDS: ATORVASTATIN 80 MG TAB PO SCH (07:25)
[2017-08-20] MEDS: ALPRAZolam 0.5 MG TAB PO SCH (07:25)
[2017-08-20] MEDS: ATENOLOL 25 MG TAB PO SCH (07:25)
--- NOTE | 2017-08-20 16:15 | P.PN ---
Subjective Progress Note Date: 08/19/17 Principal diagnosis: right edward hematoma status post I&D 71-year-old the male admitted for an abscess in the right anterior edward area which is probably a hematoma which cannot infected. Patient underwent incision and drainage and wound cultures were sent. 08/19/2017 Patient says that his right leg is much better now and swelling improved. Wound cultures are not finalized yet. Patient is currently on vancomycin and ID is following. No fever no chills. No nausea vomiting or abdominal pain. No chest pain or shortness of breath. All other review of systems negative except the above Current medications reviewed Objective - Vital Signs Vital signs: Vital Signs Temp 97.9 F 08/19/17 14:17 Pulse 71 08/19/17 14:17 Resp 16 08/19/17 14:17 BP 125/70 08/19/17 14:17 Pulse Ox 97 08/19/17 14:17 Intake & Output 08/18/17 08/19/17 08/19/17 18:59 06:59 18:59 Intake Total 1400 Balance 1400 Intake: Intake, IV Titration 1150 Amount Sodium Chloride 0.9% 1, 900 000 ml @ 100 mls/hr IV . Q10H RICK Rx#:[id number] Vancomycin 1,250 mg In 250 Sodium Chloride 0.9% 250 ml @ 125 mls/hr IVPB Q12H RICK Rx#:[id number] Oral 250 Other: Voiding Method Toilet Toilet Toilet # Voids 2 1 3 - Exam PHYSICAL EXAMINATION: Patient is lying in the bed comfortably, no acute distress, awake alert and oriented.. HEENT: Normocephalic. Neck is supple. Pupils reactive. Nostrils clear. Oral cavity is moist. Ears reveal no drainage. Neck reveals no JVD, carotid bruits, or thyromegaly. CHEST EXAMINATION: Trachea is central. Symmetrical expansion. Lung biggs clear to auscultation and percussion. CARDIAC: Normal S1, S2 with no gallops. No murmurs ABDOMEN: Soft. Bowel sounds normal. No organomegaly. No abdominal bruits. Extremities: reveal no edema. No clubbing or cyanosisarea and right edward redness and swelling improved. Wound is bandaged at this time. Neurologically awake, alert, oriented x3 with well-coordinated movements. No focal deficits noted Skin: No rash or skin lesions. Psychiatric: Coperative. Nonsuicidal Musculoskeletal: No joint swelling or deformity. Normal range of motion. - Labs CBC & Chem 7: 08/18/17 07:36 08/18/17 07:36 Labs: Microbiology - Last 24 Hours (Table) 08/17/17 10:47 Anaerobic Culture - Preliminary Leg - Right 08/17/17 10:47 Gram Stain - Final Leg - Right Wound Culture - Final 08/17/17 08:26 Blood Culture - Preliminary Blood No Growth after 48 hours 08/17/17 08:19 Blood Culture - Preliminary Blood No Growth after 48 hours 08/16/17 19:43 Blood Culture - Preliminary Blood No Growth after 48 hours Assessment and Plan Assessment: -Cellulitis and abscess of the right leg secondary to injury with the hardware: status post I&Dand is on vancomycin. Awaiting finalwound cultures -Lactic acidosis secondary to infection improved with hydration. -Hypertension -Hyperlipidemia -Gastroesophageal reflux disease -Depression Time with Patient: Greater than 30
--- NOTE | 2017-08-20 16:17 | P.DS ---
Providers Date of admission: 08/16/17 22:15 Expected date of discharge: 08/20/17 Attending physician: Carolina Renee Consults: 08/16/17 22:16 Consult Physician Routine Consulting Provider: Nicole aSlgado Consult Reason/Comments: Leg cellulitis. Possible abscess. Failed outpatient treatment. Do you want consulting provider notified?: Already Contacted 08/16/17 22:17 Consult Physician Routine Consulting Provider: Miguel Angel Lowry Consult Reason/Comments: Leg cellulitis. Possible abscess. Do you want consulting provider notified?: Yes 08/16/17 22:24 Consult Physician Routine Consulting Provider: Claudio Harper Consult Reason/Comments: your patient Do you want consulting provider notified?: Already Contacted Primary care physician: Claudio Harper Hospital Course: discharge diagnosis -Cellulitis and abscess of the right leg secondary to injury with the hardware: status post I&Dand is on vancomycin. wound cultures showed no organisms. -Lactic acidosis secondary to infection improved with hydration. -Hypertension -Hyperlipidemia -Gastroesophageal reflux disease -Depression 71-year-old the male admitted for an abscess in the right anterior edward area which is probably a hematoma which cannot infected. Patient underwent incision and drainage and wound cultures were sent. 08/19/2017 Patient says that his right leg is much better now and swelling improved. Wound cultures are not finalized yet. Patient is currently on vancomycin and ID is following. No fever no chills. No nausea vomiting or abdominal pain. No chest pain or shortness of breath. 08/20/2017. Right edward swelling and redness is much improved now. Wound cultures showed no organisms. Patient will be discharged home with antibiotics in the form of Keflex 500 mg 3 times a day for 5 days as per ID recommendations.arise patient is stable to be discharged home. Discharge physical examination was done and vitals reviewed. Vital Signs - 24 hr 08/19/17 08/20/17 22:04 07:17 Temperature 97.9 F 98.3 F Pulse Rate [ 76 74 Pulse Oximetery ] Respiratory 20 16 Rate Blood Pressure 114/76 159/81 [Right Arm] O2 Sat by Pulse 95 95 Oximetry Patient Condition at Discharge: Fair Plan - Discharge Summary Discharge Rx Participant: No New Discharge Prescriptions: New Cephalexin [Keflex] 500 mg PO Q8HR 5 Days #15 cap Continue RX: amLODIPine [Norvasc] 5 mg PO DAILY RX: Nitroglycerin Sl Tabs [Nitrostat] 0.4 mg SUBLINGUAL Q5M PRN PRN Reason: Chest Pain RX: Isosorbide Mononitrate ER [Imdur] 60 mg PO DAILY RX: Atenolol [Tenormin] 25 mg PO DAILY RX: Pantoprazole Sodium [Protonix] 40 mg PO DAILY RX: buPROPion SR [Wellbutrin SR] 150 mg PO DAILY RX: Aspirin EC [Ecotrin Low Dose] 81 mg PO DAILY RX: Atorvastatin [Lipitor] 80 mg PO DAILY RX: ALPRAZolam [Xanax] 0.5 mg PO DAILY Discharge Medication List RX: Atenolol [Tenormin] 25 mg PO DAILY 03/31/14 [History] RX: Isosorbide Mononitrate ER [Imdur] 60 mg PO DAILY 03/31/14 [History] RX: Nitroglycerin Sl Tabs [Nitrostat] 0.4 mg SUBLINGUAL Q5M PRN 03/31/14 [ History] RX: Pantoprazole Sodium [Protonix] 40 mg PO DAILY 03/31/14 [History] RX: amLODIPine [Norvasc] 5 mg PO DAILY 03/31/14 [History] RX: Aspirin EC [Ecotrin Low Dose] 81 mg PO DAILY 05/09/16 [History] RX: Atorvastatin [Lipitor] 80 mg PO DAILY 05/09/16 [History] RX: buPROPion SR [Wellbutrin SR] 150 mg PO DAILY 05/09/16 [History] RX: ALPRAZolam [Xanax] 0.5 mg PO DAILY 08/14/17 [History] Cephalexin [Keflex] 500 mg PO Q8HR 5 Days #15 cap 08/20/17 [Rx] Follow up Appointment(s)/Referral(s): Jamilah Haile PAC [PHYSICIAN [employer]ENDER] - 08/25/17 2:30 pm Claudio Harper DO [Primary Care Provider] - 08/24/17 2:30 pm Nicole Salgado MD [STAFF PHYSICIAN] - 08/24/17 10:00 am Patient Instructions/Handouts: Cellulitis (DC), Lactic Acidosis (GEN) Activity/Diet/Wound Care/Special Instructions: Change dressing daily, more often if needed. Dressing supplies: 4 x 4 gauze, ABD pads, Kerlix or Gracie, Gerry wrap. Antibiotics per infectious disease. Discharge Disposition: HOME SELF-CARE
== END 2017-08-20 15:20 | disposition home or self-care (01) | DRG 872 ==
LOC: EC 17:54 → 5MS5E 22:15
PROVIDERS: ADMIT Hospitalist; ATTEND Hospitalist
DX: A41.9 Sepsis, unspecified organism (principal); T79.2XXA Traumatic secondary and recurrent hemorrhage and seroma, initial encounter; L03.115 Cellulitis of right lower limb; L02.415 Cutaneous abscess of right lower limb; J44.9 Chronic obstructive pulmonary disease, unspecified; K21.9 Gastro-esophageal reflux disease without esophagitis; I10 Essential (primary) hypertension; E78.5 Hyperlipidemia, unspecified; F41.9 Anxiety disorder, unspecified; F32.9 Major depressive disorder, single episode, unspecified; Z87.891 Personal history of nicotine dependence; Z90.49 Acquired absence of other specified parts of digestive tract; I25.2 Old myocardial infarction; Z86.73 Personal history of transient ischemic attack (TIA), and cerebral infarction without residual deficits; Z79.899 Other long term (current) drug therapy; Z79.82 Long term (current) use of aspirin; Z80.9 Family history of malignant neoplasm, unspecified; Z98.1 Arthrodesis status; Z88.8 Allergy status to other drugs, medicaments and biological substances
CPT/HCPCS: 36415; 80048; 80053; 80202; 83605; 85025; 85027; 87040; 87070; 87075; 87205; 96374; 96375; 96376; 99284

== ENCOUNTER → 2017-11-04 | Outpatient (CLI) | payer MEDICARE, BC ==
[2017-11-04 10:06] LABS: ALT 39 U/L (21-72); AST 32 U/L (17-59); Cholesterol 202 mg/dL (<200); HDL Cholesterol 54 mg/dL (40-60); LDL Cholesterol,Calculated 107 mg/dL (0-99); Triglycerides 207 mg/dL (<150)
== END | disposition home or self-care (01) ==
LOC: LABWHC1 08:13
PROVIDERS: ATTEND Internal Medicine Interventional Cardiology
DX: E78.2 Mixed hyperlipidemia (principal)
CPT/HCPCS: 36415; 80061; 84450; 84460

== ENCOUNTER → 2018-04-21 | Outpatient (CLI) | payer MEDICARE, BC ==
[2018-04-21 17:08] LABS: Albumin 4.7 g/dL (3.80-4.90); Albumin/Globulin Ratio 2.24 (1.20-2.10); Anion Gap 7.4 mmol/L (4.00-12.00); Calcium 9.5 mg/dL (8.7-10.3); Carbon Dioxide 25.6 mmol/L (21.6-31.8); Globulin 2.1 g/dL (1.6-3.3); LDL Cholesterol,Calculated 78.4 mg/dL (0.0-131.0); Potassium 4.5 mmol/L (3.5-5.5); Total Bilirubin 0.8 mg/dL (0.3-1.2); Total Protein 6.8 g/dL (6.2-8.2); VLDL Calculation 30.6 mg/dL (5.00-40.00)
== END ==
LOC: LABWHC1 08:35
PROVIDERS: ATTEND Internal Medicine Interventional Cardiology
DX: E78.2 Mixed hyperlipidemia (principal)
CPT/HCPCS: 36415; 80053; 80061

== ENCOUNTER 2018-09-18 15:40 | Emergency (ER) | payer MEDICARE, BC ==
[2018-09-18 15:46] VITALS: RESP 18; TEMP 98.4
[2018-09-18] MEDS ORDERED: MORPHINE SULFATE 4 MG/ML SYRINGE IM STA (16:08)
[2018-09-18] MEDS ORDERED: DIAZEPAM 5 MG/ML 2 ML INJ IM ONE (16:08)
[2018-09-18] MEDS ORDERED: ORPHENADRINE 30 MG/ML 2 ML VIAL IM STA (16:08)
--- NOTE | 2018-09-18 17:07 | XR ---
EXAMINATION TYPE: XR lumbar spine 2 or 3V DATE OF EXAM: 09/18/2018 COMPARISON: 09/12/2016 HISTORY: Back pain TECHNIQUE: 3 views FINDINGS: There is mild thoracolumbar dextroscoliosis. There is narrowing at L4-5 and L5-S1 disc spac es with spurring and vacuum disc. There is no compression fracture of the lumbar spine. There is 20% anterior wedging of T12 vertebra. Abdominal aorta is atheromatous. Posterior elements appear intact. Sacroiliac joints are intact. IMPRESSION: Old mild compression fracture of T12 unchanged. Mild scoliosis. No acute fracture seen. Bartolo thomas lumbar spondylotic changes have progressed at L5-S1 compared to old exam.
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
--- NOTE | 2018-09-18 17:26 | ED ---
Disposition Clinical Impression: Acute exacerbation of chronic low back pain Disposition: HOME SELF-CARE Condition: Good Instructions (If sedation given, give patient instructions): Acute Low Back Pain (ED) Additional Instructions: Patient has a close follow-up with primary care doctor and orthopedic emergency medicine specialist. Return to emergency department if any alarming signs or symptoms occur. Prescriptions: Dexamethasone 0.75 mg PO DAILY #12 tab Cyclobenzaprine [Flexeril] 10 mg PO TID #15 tab Ibuprofen 600 mg PO TID #20 tablet HYDROcodone/APAP 5-325MG [Sheldon 5-325] 1 tab PO Q6HR PRN 3 Days #12 tab PRN Reason: Pain Is patient prescribed a controlled substance at d/c from ED?: Yes Referrals: Claudio Harper DO [Primary Care Provider] - 1-2 days Kirk Levin DO [Doctor of Osteopathic Medicine] - 1-2 days Time of Disposition: 17:26
[2018-09-18 17:33] VITALS: BP 122/83; PULSE 77
== END 2018-09-18 18:08 | disposition home or self-care (01) ==
LOC: EC 15:40
DX: M54.5 Low back pain (principal); G89.29 Other chronic pain; M47.817 Spondylosis without myelopathy or radiculopathy, lumbosacral region; M41.86 Other forms of scoliosis, lumbar region; M48.54XA Collapsed vertebra, not elsewhere classified, thoracic region, initial encounter for fracture; K21.9 Gastro-esophageal reflux disease without esophagitis; E78.5 Hyperlipidemia, unspecified; I10 Essential (primary) hypertension; I25.2 Old myocardial infarction; Z87.891 Personal history of nicotine dependence; Z88.6 Allergy status to analgesic agent; Z91.048 Other nonmedicinal substance allergy status; Z79.82 Long term (current) use of aspirin; Z79.899 Other long term (current) drug therapy; Z86.73 Personal history of transient ischemic attack (TIA), and cerebral infarction without residual deficits; Z98.1 Arthrodesis status
CPT/HCPCS: 72100; 99283; 96372 ×3; J2270; J2360; J3360

== ENCOUNTER → 2018-11-13 | Outpatient (CLI) | payer MEDICARE, BC ==
[2018-11-13 16:20] LABS: African American GFR (CKD) 77.3 (60.0-200.0); Anion Gap 8.9 mmol/L (4.00-12.00); BUN/Creat Ratio 17.27 Ratio (12.00-20.00); Calcium 10.1 mg/dL (8.7-10.3); Carbon Dioxide 27.1 mmol/L (21.6-31.8); Chol/HDL Ratio 3.22; Non-African American GFR(CKD) 66.7 (60.0-200.0); Potassium 5.5 mmol/L (3.5-5.5)
== END | disposition home or self-care (01) ==
LOC: LABWHC1 07:50
PROVIDERS: ATTEND Internal Medicine Interventional Cardiology
DX: E78.2 Mixed hyperlipidemia (principal)
CPT/HCPCS: 36415; 80048; 80061; 84450; 84460

== ENCOUNTER → 2018-11-14 | Outpatient (CLI) | payer MEDICARE, BC ==
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
== END ==
CPT/HCPCS: 99211

== ENCOUNTER 2018-11-15 17:45 | Observation (INO) | payer MEDICARE, BC ==
[2018-11-15] MEDS ORDERED: MORPHINE SULFATE 4 MG/ML SYRINGE IV STA (18:05)
[2018-11-15] MEDS ORDERED: SODIUM CHLORIDE 0.9% 1,000 ML IV STA (18:05)
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
[2018-11-15 18:27] LABS: Basophils # (A) 0.1 k/uL (0-0.2); Basophils % (A) 1 %; Eosinophils # (A) 0.1 k/uL (0-0.7); Eosinophils % (A) 3 %; HGB 13.6 gm/dL (13.0-17.5); Lymphocytes # (A) 1.9 k/uL (1.0-4.8); Lymphocytes % (A) 40 %; MCH 33.2 pg (25.0-35.0); MCHC 33.9 g/dL (31.0-37.0); Mean Platelet Volume 7.1; Monocytes # (A) 0.3 k/uL (0-1.0); Monocytes % (A) 6 %; Neutrophils # (A) 2.2 k/uL (1.3-7.7); Neutrophils % (A) 47 %; Platelet Count 286 k/uL (150-450); RBC 4.08 m/uL (4.30-5.90); RDW 14.1 % (11.5-15.5); WBC 4.8 k/uL (3.8-10.6)
[2018-11-15 18:39] LABS: ALT 32 U/L (21-72); AST 36 U/L (17-59); African American GFR (CKD) >90 (>60 ml/min/1.73 sqM); Albumin 4.2 g/dL (3.5-5.0); Alkaline Phosphatase 63 U/L (38-126); Anion Gap 11 mmol/L; Blood Urea Nitrogen 14 mg/dL (9-20); Calcium 9.1 mg/dL (8.4-10.2); Carbon Dioxide 22 mmol/L (22-30); Chloride 109 mmol/L (98-107); Creatine Kinase 67 U/L (55-170); Glucose 92 mg/dL (74-99); Magnesium 2.1 mg/dL (1.6-2.3); Sodium 142 mmol/L (137-145); Total Bilirubin 0.9 mg/dL (0.2-1.3); Total Protein 6.7 g/dL (6.3-8.2)
[2018-11-15 18:40] LABS: D-Dimer 0.38 mg/L FEU (<0.60); INR 0.9 (<1.2); Partial Thromboplastin Time 22.8 sec (22.0-30.0); Prothrombin Time 10.1 sec (9.0-12.0)
--- NOTE | 2018-11-15 18:47 | XR ---
EXAMINATION TYPE: XR chest 2V DATE OF EXAM: 11/15/2018 COMPARISON: 05/07/2018 HISTORY: Chest pain TECHNIQUE: Frontal and lateral views of the chest are obtained. FINDINGS: There is no heart failure nor confluent pneumonic infiltrate. Costophrenic angles are tomy r of fluid. Thoracic aorta is atheromatous. There are chest leads. There is extensive calcified pleur al plaque in the right posterior lung base. IMPRESSION: No active cardiopulmonary disease. No change.
[2018-11-15 18:51] LABS: Alcohol 214 mg/dL
[2018-11-15 19:03] LABS: Troponin I <0.012 ng/mL (0.000-0.034)
[2018-11-15] MEDS ORDERED: MORPHINE SULFATE 4 MG/ML SYRINGE IV PRN (20:05)
[2018-11-15] MEDS ORDERED: NITROGLYCERIN SL TABS 0.4 MG TAB SUBLINGUAL PRN (20:05)
[2018-11-15] MEDS ORDERED: THIAMINE 100 MG/ML 2 ML VIAL IM STA (20:07)
[2018-11-15] MEDS ORDERED: LORazepam 2 MG/ML INJ IV PRN ×3 (20:07)
--- NOTE | 2018-11-15 20:07 | ED ---
Medical Decision Making - Medical Decision Making This 72-year-old male who upon reevaluation prior to discharge began to experience chest pain and chest discomfort left-sided. Requesting pain medication was significant history of heart disease. Patient be admitted for cardiology evaluation and treatment - Lab Data Result diagrams: 11/15/18 18:00 11/15/18 18:00 Lab Results 11/15/18 11/15/18 11/15/18 Range/Units 18:00 18:00 18:00 WBC 4.8 (3.8-10.6) k/uL RBC 4.08 L (4.30-5.90) m/uL Hgb 13.6 (13.0-17.5) gm/dL Hct 40.0 (39.0-53.0) % MCV 98.0 (80.0-100.0) fL MCH 33.2 (25.0-35.0) pg MCHC 33.9 (31.0-37.0) g/dL RDW 14.1 (11.5-15.5) % Plt Count 286 (150-450) k/uL Neutrophils % 47 % Lymphocytes % 40 % Monocytes % 6 % Eosinophils % 3 % Basophils % 1 % Neutrophils # 2.2 (1.3-7.7) k/uL Lymphocytes # 1.9 (1.0-4.8) k/uL Monocytes # 0.3 (0-1.0) k/uL Eosinophils # 0.1 (0-0.7) k/uL Basophils # 0.1 (0-0.2) k/uL PT (9.0-12.0) sec INR (<1.2) APTT (22.0-30.0) sec D-Dimer (<0.60) mg/L FEU Sodium 142 (137-145) mmol/L Potassium 4.0 (3.5-5.1) mmol/L Chloride 109 H (98-107) mmol/L Carbon Dioxide 22 (22-30) mmol/L Anion Gap 11 mmol/L BUN 14 (9-20) mg/dL Creatinine 0.85 (0.66-1.25) mg/dL Est GFR (CKD-EPI)AfAm >90 (>60 ml/min/1.73 sqM) Est GFR (CKD-EPI)NonAf 87 (>60 ml/min/1.73 sqM) Glucose 92 (74-99) mg/dL Calcium 9.1 (8.4-10.2) mg/dL Magnesium 2.1 (1.6-2.3) mg/dL Total Bilirubin 0.9 (0.2-1.3) mg/dL AST 36 (17-59) U/L ALT 32 (21-72) U/L Alkaline Phosphatase 63 (38-126) U/L Creatine Kinase 67 (55-170) U/L CK-MB (CK-2) 1.0 (0.0-2.4) ng/mL Troponin I <0.012 (0.000-0.034) ng/mL NT-Pro-B Natriuret Pep pg/mL Total Protein 6.7 (6.3-8.2) g/dL Albumin 4.2 (3.5-5.0) g/dL Lipase 107 (23-300) U/L Serum Alcohol 214 H* mg/dL 11/15/18 11/15/18 Range/Units 18:00 18:00 WBC (3.8-10.6) k/uL RBC (4.30-5.90) m/uL Hgb (13.0-17.5) gm/dL Hct (39.0-53.0) % MCV (80.0-100.0) fL MCH (25.0-35.0) pg MCHC (31.0-37.0) g/dL RDW (11.5-15.5) % Plt Count (150-450) k/uL Neutrophils % % Lymphocytes % % Monocytes % % Eosinophils % % Basophils % % Neutrophils # (1.3-7.7) k/uL Lymphocytes # (1.0-4.8) k/uL Monocytes # (0-1.0) k/uL Eosinophils # (0-0.7) k/uL Basophils # (0-0.2) k/uL PT 10.1 (9.0-12.0) sec INR 0.9 (<1.2) APTT 22.8 (22.0-30.0) sec D-Dimer 0.38 (<0.60) mg/L FEU Sodium (137-145) mmol/L Potassium (3.5-5.1) mmol/L Chloride (98-107) mmol/L Carbon Dioxide (22-30) mmol/L Anion Gap mmol/L BUN (9-20) mg/dL Creatinine (0.66-1.25) mg/dL Est GFR (CKD-EPI)AfAm (>60 ml/min/1.73 sqM) Est GFR (CKD-EPI)NonAf (>60 ml/min/1.73 sqM) Glucose (74-99) mg/dL Calcium (8.4-10.2) mg/dL Magnesium (1.6-2.3) mg/dL Total Bilirubin (0.2-1.3) mg/dL AST (17-59) U/L ALT (21-72) U/L Alkaline Phosphatase (38-126) U/L Creatine Kinase (55-170) U/L CK-MB (CK-2) (0.0-2.4) ng/mL Troponin I (0.000-0.034) ng/mL NT-Pro-B Natriuret Pep 92 pg/mL Total Protein (6.3-8.2) g/dL Albumin (3.5-5.0) g/dL Lipase (23-300) U/L Serum Alcohol mg/dL Disposition Clinical Impression: Back pain, Costalchondritis, Chest wall syndrome, Chest pain Disposition: ADMITTED IP TO THIS HOSP Condition: Good Is patient prescribed a controlled substance at d/c from ED?: No Referrals: Claudio Harper DO [Primary Care Provider] - 1-2 days
[2018-11-15 22:27] VITALS: RESP 18
[2018-11-15] MEDS: SODIUM CHLORIDE 0.9% 1,000 ML IV SCH (23:24)
[2018-11-16 06:56] LABS: Cholesterol 147 mg/dL (<200); HDL Cholesterol 44 mg/dL (40-60); LDL Cholesterol,Calculated 56 mg/dL (0-99); Triglycerides 236 mg/dL (<150)
[2018-11-16] MEDS ORDERED: THIAMINE 100 MG TAB PO SCH (07:30)
[2018-11-16] MEDS: SODIUM CHLORIDE 0.9% 1,000 ML IV SCH (07:36)
[2018-11-16] MEDS ORDERED: amLODIPine 5 MG TAB PO SCH (09:00)
[2018-11-16] MEDS ORDERED: ASPIRIN 81 MG PO SCH (09:00)
[2018-11-16] MEDS ORDERED: ATENOLOL 25 MG TAB PO SCH (09:00)
[2018-11-16] MEDS ORDERED: ISOSORBIDE MONONITRATE ER 60 MG TAB.ER.24H PO SCH (09:00)
[2018-11-16] MEDS ORDERED: MULTIVITAMINS, THERA 1 EACH TAB PO SCH (09:00)
[2018-11-16] MEDS ORDERED: ASPIRIN 325 MG TAB PO SCH (09:00)
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
[2018-11-16 11:12] VITALS: BP 134/89; PULSE 75; TEMP 98.2
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
--- NOTE | 2018-11-16 15:41 | P.DS ---
Providers Date of admission: 11/15/18 20:06 Attending physician: Carolina Renee Consults: 11/15/18 20:05 Consult Physician Routine Consulting Provider: Cayetano Pearson Consult Reason/Comments: cp Do you want consulting provider notified?: Yes Consult Physician Urgent Consulting Provider: Claudio Harper Consult Reason/Comments: known Do you want consulting provider notified?: Yes Primary care physician: Claudio Harper Hospital Course: As mentioned in HPI Patient Condition at Discharge: Good Plan - Discharge Summary Discharge Rx Participant: No New Discharge Prescriptions: New traMADol HCL [Ultram] 50 mg PO Q4HR PRN 3 Days #18 tab PRN Reason: Pain No Action amLODIPine [Norvasc] 5 mg PO DAILY Nitroglycerin Sl Tabs [Nitrostat] 0.4 mg SUBLINGUAL Q5M PRN PRN Reason: Chest Pain Isosorbide Mononitrate ER [Imdur] 60 mg PO DAILY Atenolol [Tenormin] 25 mg PO DAILY Pantoprazole Sodium [Protonix] 40 mg PO DAILY Aspirin EC [Ecotrin Low Dose] 81 mg PO DAILY Atorvastatin [Lipitor] 80 mg PO HS ALPRAZolam [Xanax] 0.5 mg PO BID PRN PRN Reason: Anxiety Sucralfate [Carafate] 1 gm PO ACHS PRN PRN Reason: stomach pain buPROPion XL [Wellbutrin Xl] 150 mg PO DAILY Discharge Medication List Atenolol [Tenormin] 25 mg PO DAILY 03/31/14 [History] Isosorbide Mononitrate ER [Imdur] 60 mg PO DAILY 03/31/14 [History] Nitroglycerin Sl Tabs [Nitrostat] 0.4 mg SUBLINGUAL Q5M PRN 03/31/14 [History] Pantoprazole Sodium [Protonix] 40 mg PO DAILY 03/31/14 [History] amLODIPine [Norvasc] 5 mg PO DAILY 03/31/14 [History] Aspirin EC [Ecotrin Low Dose] 81 mg PO DAILY 05/09/16 [History] Atorvastatin [Lipitor] 80 mg PO HS 05/09/16 [History] ALPRAZolam [Xanax] 0.5 mg PO BID PRN 08/14/17 [History] Sucralfate [Carafate] 1 gm PO ACHS PRN 11/12/18 [History] buPROPion XL [Wellbutrin Xl] 150 mg PO DAILY 11/15/18 [History] traMADol HCL [Ultram] 50 mg PO Q4HR PRN 3 Days #18 tab 11/16/18 [Rx] Follow up Appointment(s)/Referral(s): Cayetano Pearson MD [STAFF PHYSICIAN] - 11/26/18 10:00 am Claudio Harper DO [Primary Care Provider] - 1-2 days Discharge Disposition: HOME SELF-CARE
[2018-11-16] MEDS ORDERED: ATORVASTATIN 80 MG TAB PO SCH (21:00)
== END 2018-11-16 12:07 | disposition home or self-care (01) ==
LOC: EC 17:45 → 1SOBS 20:06
PROVIDERS: ADMIT Hospitalist; ATTEND Hospitalist
DX: R07.89 Other chest pain (principal); M54.5 Low back pain; M54.10 Radiculopathy, site unspecified; F10.929 Alcohol use, unspecified with intoxication, unspecified; G89.29 Other chronic pain; M54.2 Cervicalgia; I25.10 Atherosclerotic heart disease of native coronary artery without angina pectoris; K21.9 Gastro-esophageal reflux disease without esophagitis; J44.9 Chronic obstructive pulmonary disease, unspecified; I10 Essential (primary) hypertension; E78.5 Hyperlipidemia, unspecified; M19.90 Unspecified osteoarthritis, unspecified site; M94.0 Chondrocostal junction syndrome [Tietze]; Z79.82 Long term (current) use of aspirin; Z79.899 Other long term (current) drug therapy; Z88.6 Allergy status to analgesic agent; Z91.048 Other nonmedicinal substance allergy status; Z86.73 Personal history of transient ischemic attack (TIA), and cerebral infarction without residual deficits; I25.2 Old myocardial infarction; Z87.19 Personal history of other diseases of the digestive system; Z90.49 Acquired absence of other specified parts of digestive tract; Z98.1 Arthrodesis status; Z87.828 Personal history of other (healed) physical injury and trauma; Z87.891 Personal history of nicotine dependence; Z80.9 Family history of malignant neoplasm, unspecified; Z82.49 Family history of ischemic heart disease and other diseases of the circulatory system
CPT/HCPCS: 96372; 96375; 96376; 96361; 96374; 99285; 36415; 93005; 85379; 83880; 80061; 80053; 82550; 82553; 83690; 83735; 84484 ×2; 85025; 85610; 85730; 71046; G0378 ×2; G0480; J2060; J2270; J3411; 80320

== ENCOUNTER 2018-11-21 09:23 | Day surgery (SDC) | payer MEDICARE, BC ==
[2018-11-19 10:18] VITALS: BMI 21.9
[~2018-11-21 09:23] MED LIST changes: -AMPICILLIN-SULBACTAM 3 GM in SODIUM CHLORIDE 0.9% 100 ML IVPB STA; +LACTATED RINGERS 1,000 ML IV SCH
[2018-11-21 10:47] VITALS: TEMP 97.9
[2018-11-21] MEDS ORDERED: LIDOCAINE 1% 20 ML VIAL (10MG/ML) FOR IV START INTRADERMA ONE (10:54)
--- NOTE | 2018-11-21 11:25 | P.PCN ---
Date of Procedure: 11/21/18 Procedure(s) Performed: PREOPERATIVE DIAGNOSIS : Lumbar spondylosis with Facet Arthropathy without myelopathy POSTOPERATIVE DIAGNOSIS: same PROCEDURE: Diagnostic lumbar medial branch block with fluoroscopy at L3, L4, L5 bilateral which covers facets L4-5 and L5-S1 ANESTHESIA: Local anesthetic; moderate IV sedation with Versed 2 mg Fluoroscopy was used for the procedure and images were saved in the radiology portion of the chart. Surgeon: Juliocesar Vigil MD PROCEDURE INDICATION: Lumbar back pain without radiculopathy, not responsive to conservative management. PROCEDURE DESCRIPTION: the patient was seen and identified in the preop holding area , risks and benefits and possible complications of the procedure and alternatives were discussed with the patient, and the patient agreed to proceed with the procedure and signed the consent . IV was started , vital signs were monitored during the procedure and fluoroscopy was used to maximize the benefit and accuracy of the needle placement, and sedation was given to decrease patient anxiety. Patient was taken to the procedure room and placed in prone position. The lumbar region was prepped using chlorhexidineX-2. Under strict sterile technique using AP fluoroscopy the bilateral sacral ala were identified and using ipsilateral oblique fluoroscopy ,the junction of the transverse process and the superior articulating process of the L4, L5 vertebra which corresponds to the fluoroscopy image of the eye of the Peterson dog for the medial branches were identified. Subsequently, after local infiltration of skin with lidocaine 1% 0.2 mL at each level , a 25-gauge 3.5" Quincke-type needle was placed at the junction of the base of the transverse process and the superior articular process at the appropriate level as well as the sacral ala, and the needle was advanced until the periosteum contacted, needle placement confirmed with AP and oblique fluoroscopy, 0.2 mL of Isovue 200 per level was injected which revealed no vascular uptake and after negative aspiration, 0.5 mL of ropivacaine 0.5% was injected at each level and the needle subsequently removed . At the end of the procedure and the needles were removed and a bandage applied after the skin was cleaned. The patient was taken to recovery room in stable condition and monitors in the recovery room for 20-30 minutes and discharged home in stable condition after discharge criteria met and patient will follow up for repeat procedure in 2-4 weeks. EBL: Minimal COMPLICATION: None.
--- NOTE | 2018-11-21 11:56 | FL ---
EXAMINATION TYPE: FL guided pain mgmt statistic DATE OF EXAM: 11/21/2018 HISTORY: Pain 6 seconds of fluoroscopic time was provided by the department of radiology. 3 image was provided for documentation purposes.
[2018-11-21 12:06] VITALS: BP 121/76; PULSE 66; RESP 18
== END 2018-11-21 12:08 ==
LOC: ORPAIN 09:23
PROVIDERS: ATTEND Anesthesiology
DX: M47.816 Spondylosis without myelopathy or radiculopathy, lumbar region (principal); Z98.1 Arthrodesis status; K21.9 Gastro-esophageal reflux disease without esophagitis; J44.9 Chronic obstructive pulmonary disease, unspecified; E78.5 Hyperlipidemia, unspecified; I10 Essential (primary) hypertension; I25.2 Old myocardial infarction; M19.90 Unspecified osteoarthritis, unspecified site; Z90.49 Acquired absence of other specified parts of digestive tract; Z87.891 Personal history of nicotine dependence; I20.9 Angina pectoris, unspecified; Z79.82 Long term (current) use of aspirin; Z79.899 Other long term (current) drug therapy; Z88.6 Allergy status to analgesic agent; Z91.09 Other allergy status, other than to drugs and biological substances
CPT/HCPCS: 64493; 64494; J2250; Q9966; 99152

== ENCOUNTER → 2018-11-27 | Outpatient (CLI) | payer MEDICARE, BC ==
--- NOTE | 2018-11-27 12:11 | CTL ---
EXAMINATION TYPE: CT Low Dose Lung DATE OF EXAM ORDERED: 11/27/2018 HISTORY: Long-term tobacco use. Lung cancer screening CT DLP: 86.[address] CTDI: 2.2 mGy Automated exposure control for dose reduction was used. SCREENING VISIT: Initial study COMPARISON: CT chest 2010. TECHNIQUE: Low dose computed tomography scan was performed through the chest at 1 mm thick sections a nd reconstructed images in the coronal plane at [address] DIAGNOSTIC QUALITY: Satisfactory FINDINGS: LUNG NODULES: None. LUNGS: COPD: Severity: None Fibrosis: Severity: Mild biapical. Mild to moderate right basilar. Lymph nodes: No greater than 1 cm Other findings: None. BILATERAL PLEURAL SPACE: Effusion: None Calcification: Redemonstration of large posterior and lateral calcifications right lung base. Thickening: Focal thickening at site of calcification right lung base. Pneumothorax: None. HEART: Heart Size: Normal Coronary calcification: Three-vessel Moderate Pericardial effusion: None. OTHER FINDINGS: Upper abdomen: Cholecystectomy clips are present. There is partial visualization of suspected thin-wa lled cysts throughout both kidneys including a large exophytic lesion upper pole of the left kidney. Bony thorax: S-shaped scoliotic curvature. Supraclavicular region: Normal. Other: None. IMPRESSION: No suspicious nodules or masses. Stable right basilar calcifications presumed product of old trauma. FOLLOW UP CT CHEST RECOMMENDATION: Annual low-dose lung screening CT CT LUNG RAD: Lung-Rad 1 Negative
== END | disposition home or self-care (01) ==
LOC: RADCTMAIN 11:31
PROVIDERS: ATTEND Internal Medicine Critical Care Medicine
DX: Z12.2 Encounter for screening for malignant neoplasm of respiratory organs (principal); F17.210 Nicotine dependence, cigarettes, uncomplicated

== ENCOUNTER 2018-12-05 08:39 | Day surgery (SDC) | payer MEDICARE, BC ==
[2018-11-27 16:10] VITALS: BMI 21.9
[2018-12-05 09:10] VITALS: TEMP 98.2
[2018-12-05] MEDS ORDERED: LIDOCAINE 1% 20 ML VIAL (10MG/ML) FOR IV START INTRADERMA ONE (09:24)
--- NOTE | 2018-12-05 10:36 | P.PCN ---
Date of Procedure: 12/05/18 Procedure(s) Performed: Procedure(s) Performed: PREOPERATIVE DIAGNOSIS : Lumbar spondylosis with Facet Arthropathy without myelopathy POSTOPERATIVE DIAGNOSIS: same as preop diagnosis PROCEDURE: Diagnostic lumbar medial branch block with fluoroscopy at L3, L4, L5 bilateral which covers facets L4-5 and L5-S1 ANESTHESIA: Local anesthetic; moderate IV sedation with Versed 2 mg , and fentanyl 50 g Fluoroscopy was used for the procedure and images were saved in the radiology portion of the chart. PROCEDURE INDICATION: Lumbar back pain without radiculopathy, not responsive to conservative management. PROCEDURE DESCRIPTION: the patient was seen and identified in the preop holding area , risks and benefits and possible complications of the procedure and alternatives were discussed with the patient, and the patient agreed to proceed with the procedure and signed the consent . IV was started , vital signs were monitored during the procedure and fluoroscopy was used to maximize the benefit and accuracy of the needle placement, and sedation was given to decrease patient anxiety. Patient was taken to the procedure room and placed in prone position. The lumbar region was prepped using chlorhexidineX-2. Under strict sterile technique using AP fluoroscopy the bilateral sacral ala were identified and using ipsilateral oblique fluoroscopy ,the junction of the transverse process and the superior articulating process of the L4, L5 vertebra which corresponds to the fluoroscopy image of the eye of the Peterson dog for the medial branches were identified. Subsequently, after local infiltration of skin with lidocaine 1% 0.2 mL at each level , a 25-gauge 3.5" Quincke-type needle was placed at the junction of the base of the transverse process and the superior articular process at the appropriate level as well as the sacral ala, and the needle was advanced until the periosteum contacted, needle placement confirmed with AP and oblique fluoroscopy, 0.2 mL of Isovue 200 per level was injected which revealed no vascular uptake and after negative aspiration, 0.5 mL of ropivacaine 0.5% was injected at each level and the needle subsequently removed . At the end of the procedure and the needles were removed and a bandage applied after the skin was cleaned. The patient was taken to recovery room in stable condition and monitors in the recovery room for 20-30 minutes and discharged home in stable condition after discharge criteria met and patient will follow up for repeat procedure in 2-4 weeks.
[2018-12-05] MEDS ORDERED: LACTATED RINGERS 1,000 ML IV ONE ×2 (10:41)
[2018-12-05 10:46] VITALS: RESP 18
--- NOTE | 2018-12-05 10:54 | FL ---
Fluoroscopy INDICATION: Pain FINDINGS: Fluoroscopy time: 18 seconds. Images obtained: 4. IMPRESSIONS: 1. Documentation of fluoroscopy.
[2018-12-05 11:04] VITALS: BP 141/82; PULSE 69
== END 2018-12-05 11:15 | disposition home or self-care (01) ==
LOC: ORPAIN 08:39
PROVIDERS: ATTEND Specialist
DX: M47.816 Spondylosis without myelopathy or radiculopathy, lumbar region (principal); I25.10 Atherosclerotic heart disease of native coronary artery without angina pectoris; I10 Essential (primary) hypertension; Z91.09 Other allergy status, other than to drugs and biological substances; Z79.82 Long term (current) use of aspirin
CPT/HCPCS: 64493; 64494; J2250; J1030; J3010; 99152

== ENCOUNTER → 2018-12-24 | Outpatient (CLI) | payer MEDICARE, BC ==
[2018-12-24 14:24] VITALS: BP 123/76; PULSE 71; RESP 18
--- NOTE | 2018-12-24 14:52 | P.PAINPG ---
Subjective Progress Note Date: 12/24/18 This is a follow-up visit for this 73 years old male with a chronic history of severe low back pain, he is diagnosed with lumbar spondylosis, lumbar facet arthropathy, and lumbar spinal stenosis, recently we have done diagnostic medial branch block lumbar area L3 , L4, L5 levels x2 , and patient reported that he had no pain since the date diagnostic medial branch block, his ability to function and movement improve significantly, he is able to do activity of daily livings with no or minimal pain, he denies any motor or sensory deficit. He is not using any pain medication Objective - Vital Signs Vital signs: Vital Signs Temp Pulse 71 12/24/18 14:22 Resp 18 12/24/18 14:22 BP 123/76 12/24/18 14:22 Pulse Ox 96 12/24/18 14:22 - Exam Physical Examinations : -Constitutiona : Cooperative , not in acute distress . -HEENT : nech : supple , no Lymphadenopathy , normal thyroid size . eyes : no ptosis , no icterus, no photophobia . - neurologic : Cranial nerve II to XII intact , no focal neurological deffecit . -psychatric : alert , oriented X 3 , appropriate affect , intact judgment and insight . -Lymphatic : no Lymphadenopathy . - musculoskeltal : Lumber spine moter stegnth lower extremities ,thigh and legs 5/5 Right side , 5/5 Left side Assessment and Plan Plan: Assessment and plan= lumbar spondylosis with lumbar facet arthropathy, lumbar spinal stenosis Patient had no pain after the diagnostic medial branch block, he will follow up with the pain clinic when necessary In the future if he had pain he will be good candidate for RFA of the medial branch L3 , L4, L5 , we'll do the right side first and the left Side later on, and if patient continues to be pain free there is no need to do the RFA, Time with Patient: Less than 30 PQRS Measure Charge Sheet Measure #130: Documentation of Current Meds in Medical Chart: Patient's medications documented in chart Measure #226: Tobacco Use: Screen & Cessation Intervention: Pt not a tobacco user Measure #111: Pneumonia Vaccination: Pneumococcal vaccine administered or previ ously received Measure #47: Advance Care Plan: Advance care planning discussed & documented, pt chose/unable to give Measure #412: Opioid Treatment Agreement: No documentation of signed opioid treatment agreement Measure #408: Opioid Therapy Follow-up Evaluation: Patient had NO f/u eval minimum every 3 months during opioid therapy Measure #317: Preventitive Care & Scrn High Bld Press & F/U: Normal blood pressure, f/u not required Measure #128: Body Mass Index (BMI) Screening & Follow-up: BMI documented within normal parameters Measure #131: Pain Assessment & Follow-up: Pain positive & plan documented, Follow-up scheduled Measure #431: Unhealthy Alcohol Use Preventative Care & Scrn: Patient not identified as an unhealthy alcohol user PQRS Narrative: Smoking Status Former smoker Blood Pressure 123/76 Pain Intensity [None] 0 Scale Used Numeric (1 - 10) Hx Alcohol Use (MH) Yes Home Medications: Ambulatory Orders Atenolol [Tenormin] 25 mg PO DAILY 03/31/14 Isosorbide Mononitrate ER [Imdur] 60 mg PO DAILY 03/31/14 Nitroglycerin Sl Tabs [Nitrostat] 0.4 mg SUBLINGUAL Q5M PRN 03/31/14 Pantoprazole Sodium [Protonix] 40 mg PO DAILY 03/31/14 amLODIPine [Norvasc] 5 mg PO DAILY 03/31/14 Aspirin EC [Ecotrin Low Dose] 81 mg PO DAILY 05/09/16 Atorvastatin [Lipitor] 80 mg PO HS 05/09/16 ALPRAZolam [Xanax] 0.5 mg PO BID PRN 08/14/17 Sucralfate [Carafate] 1 gm PO ACHS PRN 11/12/18 buPROPion XL [Wellbutrin Xl] 150 mg PO DAILY 11/15/18 Controlled Substance Measures - Controlled Substance Measures Is patient prescribed a controlled substance at discharge?: No
== END | disposition home or self-care (01) ==
LOC: PNWHC3 13:41
PROVIDERS: ATTEND Specialist
DX: M48.061 Spinal stenosis, lumbar region without neurogenic claudication (principal); M47.816 Spondylosis without myelopathy or radiculopathy, lumbar region; M46.96 Unspecified inflammatory spondylopathy, lumbar region; Z87.891 Personal history of nicotine dependence; Z79.899 Other long term (current) drug therapy; Z79.82 Long term (current) use of aspirin
CPT/HCPCS: 99211

== ENCOUNTER 2019-03-06 08:19 | Day surgery (SDC) | payer MEDICARE, BC ==
[2019-03-04 16:05] VITALS: BMI 22.6
[2019-03-06 09:02] VITALS: RESP 16; TEMP 97
--- NOTE | 2019-03-06 09:55 | P.PCN ---
Date of Procedure: 03/06/19 Procedure(s) Performed: PREOPERATIVE DIAGNOSIS: 1-Lumbar Spondylosis with Facet Arthropathy without myelopathy. POSTOPERATIVE DIAGNOSIS: 1- Lumbar Spondylosis with Facet Arthropathy without myelopathy. PROCEDURES : Right Radiofrequency thermocoagulation, L3 , L4 , and L5 medial branch, with fluoroscopic guidance (fluoroscopy images available in the radiology department) ( to denervate the facet joint at L4-5 ,and L5-S1 levels ) ANESTHESIA: Moderate sedation with intravenous versed 2 mg and fentaneyl 100 mcg, and local infiltration with Ropivacaine 0.5 % . EBL: Minimal PROCEDURE INDICATION: The patient with low back pain secondary to lumbar facet arthropathy who had more than 50% relief of her pain with previous diagnostic lumbar medial branch block with bupivacaine. PROCEDURE DESCRIPTION / TECHNIQUE: The patient was seen and identified in the pr eoperative area. Risks, benefits, complications, including but not limited to risk of infection ,bleeding , allergic reactions to the medications and no complete pain releife , and alternatives were discussed with the patient, the patient agreed to proceed with the procedure and signed the consent. IV was started. Vital signs remained stable throughout the procedure. Patient was taken to the OR and time out was completed. The patient was placed in the prone position on the procedure table. The lumber area was prepped and draped in the usual sterile fashion. . Vital signs were closely monitored during the procedure .IV sedation was used during the procedure to decrease patients anxiety. Using AP and then oblique fluoroscopy, the ``eye of the Peterson dog corresponding to the connection between the superior and transverse articular processes of right L3, L4, and L5 were identified, marked, and localized with 1% lidocaine. Subsequently, a 18 [id number] radiofrequency cannula with a 10- mm active tip was advanced guided by fluoroscopy to each of the``eyes of the Peterson dog at right L3, L4, and L5. Each site then underwent sensory testing at 50 Hz and 0 to 1 volt and motor testing at 2.5 Hz and 0 to 3 volt with local stimulation, but no radicular symptoms down the legs. Thereafter the right L3, L4 , and L5 sites underwent radiofrequency thermocoagulation at 80 degrees celsius for 90 seconds after injecting 0.5 ml of PF Ropivacaine 1ml, then after the thermocoagulation done , 1 ml of the block solution containing Depo-Medrol 40 mg and 3 ml of Ropivacaine 0.5% was injected at the right L3 , L4 , and L5 , levels after negative aspiration of CSF and blood and with no paresthesias. Cannulas were retracted while injecting lidocaine 1% until the needle is out At the end of the procedure, the skin was cleansed and bandages were applied. COMPLICATIONS: No acute complications. DISPOSITION / PLANS: The patient was placed in a supine position and transferred to the recovery area in a stable condition for observation and was discharged from the recovery room after meeting discharge criteria. Home discharge instructions given to the patient by the staff. The patient was reexamined prior to discharge. The patient will schedule a follow up in the clinic in 2-4 weeks.
[2019-03-06] MEDS ORDERED: IV FLUID CONTINUATION 1,000 ML IV ONE (10:01)
[2019-03-06] MEDS ORDERED: HYDROcodone/APAP 5-325MG 1 EACH TAB PO PRN (10:32)
--- NOTE | 2019-03-06 10:35 | FL ---
Fluoroscopy History: LOW BACK PAIN R SIDE LUMBAR RF 3 LEVELS, 24SEC FL TIME
[2019-03-06] MEDS ORDERED: HYDROcodone/APAP 5-325MG 1 EACH TAB PO ONE ×2 (10:41)
[2019-03-06 11:14] VITALS: BP 118/71; PULSE 66
== END 2019-03-06 11:23 | disposition home or self-care (01) ==
LOC: ORPAIN 08:19
PROVIDERS: ATTEND Specialist
DX: M47.816 Spondylosis without myelopathy or radiculopathy, lumbar region (principal); I25.10 Atherosclerotic heart disease of native coronary artery without angina pectoris; I10 Essential (primary) hypertension; Z86.73 Personal history of transient ischemic attack (TIA), and cerebral infarction without residual deficits; Z79.82 Long term (current) use of aspirin; Z88.6 Allergy status to analgesic agent; Z91.09 Other allergy status, other than to drugs and biological substances
CPT/HCPCS: 64635; 64636; J2250; J1030; J3010; 99152

== ENCOUNTER 2019-05-06 07:36 | Day surgery (SDC) | payer MEDICARE, BC ==
[2019-05-02 18:09] VITALS: BMI 23.1
[~2019-05-06 07:36] MED LIST changes: +BUPIVACAINE (PF) 0.5% 30 ML VIAL ONE; +MIDAZOLAM 2 MG/2 ML VIAL ONE; +fentaNYL (PF) 50 MCG/ML 2 ML AMP ONE; +methylPREDNISolone ACETATE 40 MG/ML 1 ML VIAL ONE
[2019-05-06 08:00] VITALS: RESP 16; TEMP 98
[2019-05-06] MEDS ORDERED: LIDOCAINE 1% 20 ML VIAL (10MG/ML) FOR IV START INTRADERMA ONE (08:05)
--- NOTE | 2019-05-06 08:36 | P.PCN ---
Date of Procedure: 05/06/19 Procedure(s) Performed: PREOPERATIVE DIAGNOSIS: 1-Lumbar Spondylosis with Facet Arthropathy without myelopathy. POSTOPERATIVE DIAGNOSIS: 1- Lumbar Spondylosis with Facet Arthropathy without myelopathy. PROCEDURES : Left Radiofrequency thermocoagulation, L3 , L4 , and L5 medial branch, with fluoroscopic guidance (fluoroscopy images available in the radiology department) ( to denervate the facet joint at L4-5 ,and L5-S1 levels ) ANESTHESIA: Moderate sedation with intravenous versed 2 mg and fentaneyl 100 mcg, and local infiltration with Ropivacaine 0.5 % . EBL: Minimal PROCEDURE INDICATION: The patient with low back pain secondary to lumbar facet arthropathy who had more than 50% relief of her pain with previous diagnostic lumbar medial branch block with bupivacaine. PROCEDURE DESCRIPTION / TECHNIQUE: The patient was seen and identified in the preoperative area. Risks, benefits, complications, including but not limited to risk of infection ,bleeding , allergic reactions to the medications and no complete pain releife , and alternatives were discussed with the patient, the patient agreed to proceed with the procedure and signed the consent. IV was started. Vital signs remained stable throughout the procedure. Patient was taken to the OR and time out was completed. The patient was placed in the prone position on the procedure table. The lumber area was prepped and draped in the usual sterile fashion. . Vital signs were closely monitored during the procedure .IV sedation was used during the procedure to decrease patients anxiety. Using AP and then oblique fluoroscopy, the ``eye of the Peterson dog corresponding to the connection between the superior and transverse articular processes of Left L3, L4, and L5 were identified, marked, and localized with 1% lidocaine. Subsequently, a 18 [id number] radiofrequency cannula with a 10-mm active tip was advanced guided by fluoroscopy to each of the``eyes of the Peterson dog at Left L3, L4, and L5. Each site then underwent sensory testing at 50 Hz and 0 to 1 volt and motor testing at 2.5 Hz and 0 to 3 volt with local stimulation, but no radicular symptoms down the legs. Thereafter the Left L3, L4 , and L5 sites underwent radiofrequency thermocoagulation at 80 degrees celsius for 90 seconds after injecting 0.5 ml of PF Ropivacaine 1ml, then after the thermocoagulation done , 1 ml of the block solution containing Depo-Medrol 40 mg and 3 ml of Ropivacaine 0.5% was injected at the Left L3 , L4 , and L5 , levels after negative aspiration of CSF and blood and with no paresthesias. Cannulas were retracted while injecting lidocaine 1% until the needle is out At the end of the procedure, the skin was cleansed and bandages were applied. COMPLICATIONS: No acute complications. DISPOSITION / PLANS: The patient was placed in a supine position and transferred to the recovery area in a stable condition for observation and was discharged from the recovery room after meeting discharge criteria. Home discharge instructions given to the patient by the staff. The patient was reexamined prior to discharge. The patient will schedule a follow up in the clinic in 2-4 weeks.
[2019-05-06] MEDS ORDERED: LACTATED RINGERS 1,000 ML IV ONE (08:42)
--- NOTE | 2019-05-06 08:52 | FL ---
Fluoroscopy History: Lumbar RF 8 SEC FL
[2019-05-06 09:02] VITALS: BP 105/64; PULSE 67
== END 2019-05-06 09:18 | disposition home or self-care (01) ==
LOC: ORPAIN 07:36
PROVIDERS: ATTEND Specialist
DX: M47.816 Spondylosis without myelopathy or radiculopathy, lumbar region (principal); M51.36 Other intervertebral disc degeneration, lumbar region; I25.10 Atherosclerotic heart disease of native coronary artery without angina pectoris; I10 Essential (primary) hypertension; Z88.6 Allergy status to analgesic agent
CPT/HCPCS: 64635; 64636; J2250; J1030; J3010; 99152

== ENCOUNTER → 2019-05-16 | Outpatient (CLI) | payer MEDICARE, BC ==
[2019-05-16 08:28] LABS: Basophils # (A) 0.1 k/uL (0-0.2); Basophils % (A) 1 %; Eosinophils # (A) 0.2 k/uL (0-0.7); Eosinophils % (A) 2 %; HCT 40.3 % (39.0-53.0); Lymphocytes # (A) 1.5 k/uL (1.0-4.8); Lymphocytes % (A) 16 %; MCHC 32.3 g/dL (31.0-37.0); Mean Platelet Volume 7.2; Monocytes # (A) 0.4 k/uL (0-1.0); Monocytes % (A) 5 %; Neutrophils # (A) 6.8 k/uL (1.3-7.7); Neutrophils % (A) 74 %; Platelet Count 273 k/uL (150-450); RBC 4.07 m/uL (4.30-5.90); RDW 13.8 % (11.5-15.5); WBC 9.2 k/uL (3.8-10.6)
[2019-05-16 15:58] LABS: T4, Free (Free Thyroxine) 1.2 ng/dL (0.80-1.80)
[2019-05-16 16:20] LABS: African American GFR (CKD) 86.2 (60.0-200.0); Albumin 4.5 g/dL (3.80-4.90); Albumin/Globulin Ratio 2.5 (1.60-3.17); Anion Gap -0.3 mmol/L (4.00-12.00); Calcium 9.5 mg/dL (8.7-10.3); Carbon Dioxide 25.3 mmol/L (21.6-31.8); Chol/HDL Ratio 2.61; Globulin 1.8 g/dL (1.6-3.3); LDL Cholesterol,Calculated 57.6 mg/dL (0.0-131.0); Non-African American GFR(CKD) 74.3 (60.0-200.0); Potassium 4.8 mmol/L (3.5-5.5); Total Bilirubin 0.6 mg/dL (0.2-1.2); Total Protein 6.3 g/dL (6.2-8.2); VLDL Calculation 16.4 mg/dL (5.00-40.00)
[2019-05-16 16:34] LABS: Hemoglobin A1C 5.9 % (4.0-6.0)
== END | disposition home or self-care (01) ==
LOC: LABWHC1 07:56
PROVIDERS: ATTEND Internal Medicine Critical Care Medicine
DX: Z00.00 Encounter for general adult medical examination without abnormal findings (principal); E55.9 Vitamin D deficiency, unspecified; K86.1 Other chronic pancreatitis; I20.9 Angina pectoris, unspecified; I63.9 Cerebral infarction, unspecified; E78.5 Hyperlipidemia, unspecified; K21.9 Gastro-esophageal reflux disease without esophagitis; J44.9 Chronic obstructive pulmonary disease, unspecified; R85.9 Unspecified abnormal finding in specimens from digestive organs and abdominal cavity; Z12.5 Encounter for screening for malignant neoplasm of prostate
CPT/HCPCS: 84439; 80061; 80053; 82150; 83690; 84443; 85025; 82306; 83036; 36415; G0103

== ENCOUNTER → 2019-05-23 | Outpatient (CLI) | payer MEDICARE, BC ==
[2019-05-23 11:45] VITALS: BP 152/88; PULSE 77; RESP 18
--- NOTE | 2019-05-29 07:47 | P.PAINPG ---
Subjective Progress Note Date: 05/23/19 This is a follow-up visit for this 73 year old male with a chronic history of severe low back pain, he is diagnosed with lumbar spondylosis, lumbar facet arthropathy, and lumbar spinal stenosis, recently we have done radiofrequency ablation of the lumbar area L3 , L4, L5, right and left on 03/06/2019 and 05/06/2019. He returns today for follow-up. He reports excellent ongoing relief from this procedure. Pain rated as 1/10. He is using PRN aleve, tylenol for pain. Review of systems is negative for chest pain, shortness of breath, new onset weakness, numbness/tingling, abdominal pain, malaise, fever, night sweats, chills, homicidal or suicidal ideation, or bowel or bladder incontinence. Objective Physical exam: Vitals: Reviewed in EMR GENERAL: Well appearing, in no acute distress PSYCH: Mood and affect is appropriate. Awake, alert, and oriented SKIN: Skin color, texture, turgor normal, no rashes or lesions HEENT: Normocephalic, atraumatic. EOM intact CV: No pedal edema RESP: Respirations are unlabored, no audible wheezing GI: Abdomen non-distended MUSCULOSKELETAL: Bilateral lower extremity strength is normal and symmetric. No atrophy or tone abnormalities are noted. Lumbar spine: Straight leg raising in the sitting position is negative for radicular pain. No pain to palpation over the lumbar spine and paraspinous muscles. Negative for pain with facet loading and back extension/rotation. Normal range of motion without pain reproduction Extremities: Peripheral joint ROM is full and pain free without obvious instability or laxity in all four extremities. No edema or skin discolorations noted. Gait: Gait is normal NEUR: Bilateral lower extremity coordination and muscle stretch reflexes are physiologic and symmetric. Negative clonus bilaterally. No loss of sensation is noted. Assessment and Plan Plan: Assessment and plan= lumbar spondylosis with lumbar facet arthropathy, lumbar spinal stenosis He is status post RFA of the medial branch L3 , L4, L5 , with excellent relief Patient was provided with exercise handout. Followup PRN PQRS Measure Charge Sheet Measure #130: Documentation of Current Meds in Medical Chart: Patient's medications documented in chart Measure #226: Tobacco Use: Screen & Cessation Intervention: Pt not a tobacco user Measure #111: Pneumonia Vaccination: Pneumococcal vaccine administered or previously received Measure #47: Advance Care Plan: Advance care planning discussed & documented, pt chose/unable to give Measure #412: Opioid Treatment Agreement: No documentation of signed opioid treatment agreement Measure #408: Opioid Therapy Follow-up Evaluation: Patient had NO f/u eval minimum every 3 months during opioid therapy Measure #317: Preventitive Care & Scrn High Bld Press & F/U:Hypertensive, follow-up with PCP Measure #128: Body Mass Index (BMI) Screening & Follow-up: BMI documented within normal parameters Measure #131: Pain Assessment & Follow-up: Pain positive & plan documented, Follow-up scheduled Measure #431: Unhealthy Alcohol Use Preventative Care & Scrn: Patient not identified as an unhealthy alcohol user Objective - Vital Signs Vital signs: Intake & Output 05/22/19 05/23/19 05/23/19 18:59 06:59 18:59 Weight 63.503 kg PQRS Measure Charge Sheet PQRS Narrative: Smoking Status Former smoker Pain Intensity [None] 0 Scale Used Numeric (1 - 10) Hx Alcohol Use (MH) Yes Home Medications: Ambulatory Orders Atenolol [Tenormin] 25 mg PO DAILY 03/31/14 Isosorbide Mononitrate ER [Imdur] 60 mg PO DAILY 03/31/14 Nitroglycerin Sl Tabs [Nitrostat] 0.4 mg SUBLINGUAL Q5M PRN 03/31/14 Pantoprazole Sodium [Protonix] 40 mg PO DAILY 03/31/14 amLODIPine [Norvasc] 5 mg PO DAILY 03/31/14 Aspirin EC [Ecotrin Low Dose] 81 mg PO DAILY 05/09/16 Atorvastatin [Lipitor] 80 mg PO HS 05/09/16 ALPRAZolam [Xanax] 0.5 mg PO BID PRN 08/14/17 buPROPion XL [Wellbutrin Xl] 150 mg PO DAILY 11/15/18 Controlled Substance Measures - Controlled Substance Measures Is patient prescribed a controlled substance at discharge?: No
== END | disposition home or self-care (01) ==
LOC: PNWHC3 11:30
PROVIDERS: ATTEND Anesthesiology
DX: G89.29 Other chronic pain (principal); M48.061 Spinal stenosis, lumbar region without neurogenic claudication; M47.816 Spondylosis without myelopathy or radiculopathy, lumbar region; M46.96 Unspecified inflammatory spondylopathy, lumbar region; Z98.890 Other specified postprocedural states; Z87.891 Personal history of nicotine dependence; Z79.82 Long term (current) use of aspirin; Z79.899 Other long term (current) drug therapy
CPT/HCPCS: 99211

== ENCOUNTER 2019-08-08 17:13 | Emergency (ER) | payer MEDICARE, BC ==
[2019-08-08 17:20] VITALS: BP 169/83; PULSE 84; RESP 18; TEMP 98.3
--- NOTE | 2019-08-08 18:17 | XR ---
EXAMINATION TYPE: XR lumbar spine 2 or 3V DATE OF EXAM: 08/08/2019 CLINICAL HISTORY: Back pain TECHNIQUE: Frontal and lateral images of the lumbar spine are obtained. COMPARISON: 09/18/2018 FINDINGS: The previously seen old mild compression fracture of T12 is redemonstrated. There is also r edemonstration of an S-shaped scoliosis of the visualized thoracolumbar spine. Multilevel facet arthr opathy and intervertebral disc space narrowing are redemonstrated predominating at L4-L5 and L5-S1. V ertebral body height of L1 and L2 are unchanged from the prior. Stented atherosclerosis of the abdomi nal aorta. Cholecystectomy clips are seen. Minimal retrolisthesis of L5 on S1 is chronic. IMPRESSION: 1. Chronic compression deformity of T12. 2. Redemonstration of an S-shaped scoliosis of the visualized thoracolumbar spine and at least modera te degenerative disc disease of the lumbar spine most pronounced at L4-S1. 5. Extensive atherosclerosis of the abdominal aorta.
[2019-08-08] MEDS ORDERED: ACET/COD 300 MG/30 MG STARTER PACK 6 TAB BTL PO STA (19:49)
[2019-08-08] MEDS ORDERED: CYCLOBENZAPRINE 10MG STARTER 3 TAB BTL PO STA (19:49)
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
== END 2019-08-08 20:30 | disposition home or self-care (01) ==
LOC: EC 17:13
DX: S22.089A Unspecified fracture of T11-T12 vertebra, initial encounter for closed fracture (principal); S39.012A Strain of muscle, fascia and tendon of lower back, initial encounter; K21.9 Gastro-esophageal reflux disease without esophagitis; E78.5 Hyperlipidemia, unspecified; I10 Essential (primary) hypertension; M19.90 Unspecified osteoarthritis, unspecified site; H91.90 Unspecified hearing loss, unspecified ear; I25.2 Old myocardial infarction; Z79.82 Long term (current) use of aspirin; Z79.899 Other long term (current) drug therapy; Z95.5 Presence of coronary angioplasty implant and graft; Z98.890 Other specified postprocedural states; Z98.1 Arthrodesis status; Z87.891 Personal history of nicotine dependence; Z88.6 Allergy status to analgesic agent; Z91.09 Other allergy status, other than to drugs and biological substances; Z86.73 Personal history of transient ischemic attack (TIA), and cerebral infarction without residual deficits; W01.0XXA Fall on same level from slipping, tripping and stumbling without subsequent striking against object, initial encounter; Y93.01 Activity, walking, marching and hiking
CPT/HCPCS: 72100; 99284

== ENCOUNTER → 2019-09-13 | Outpatient (CLI) | payer MEDICARE, BC | END | disposition home or self-care (01) | LOC: LABWHC1 09:51 | PROVIDERS: ATTEND Urology | DX: R97.20 Elevated prostate specific antigen [PSA] (principal) | CPT/HCPCS: 36415; 84153 ==

== ENCOUNTER → 2019-10-28 | Outpatient (CLI) | payer MEDICARE, BC ==
[2019-10-28 20:29] LABS: African American GFR (CKD) 69.1 (60.0-200.0); Albumin 4.2 g/dL (3.80-4.90); Albumin/Globulin Ratio 2.1 (1.60-3.17); Anion Gap 8.9 mmol/L (4.00-12.00); Calcium 9.4 mg/dL (8.7-10.3); Carbon Dioxide 24.1 mmol/L (21.6-31.8); Chol/HDL Ratio 3.11; Non-African American GFR(CKD) 59.6 (60.0-200.0); Potassium 4.3 mmol/L (3.5-5.5); Total Bilirubin 0.7 mg/dL (0.2-1.2); Total Protein 6.2 g/dL (6.2-8.2)
== END | disposition home or self-care (01) ==
LOC: LABWHC1 07:44
PROVIDERS: ATTEND Orthopaedic Surgery Orthopaedic Surgery of the Spine
DX: E78.2 Mixed hyperlipidemia (principal)
CPT/HCPCS: 36415; 71046; 80053; 80061

== ENCOUNTER → 2019-10-28 | Outpatient (CLI) | payer MEDICARE, BC ==
[2019-10-28 08:44] LABS: Basophils # (A) 0.1 k/uL (0-0.2); Basophils % (A) 2 %; Eosinophils # (A) 0.3 k/uL (0-0.7); Eosinophils % (A) 5 %; HCT 48.4 % (39.0-53.0); HGB 15.4 gm/dL (13.0-17.5); Lymphocytes # (A) 1.7 k/uL (1.0-4.8); Lymphocytes % (A) 29 %; MCH 30.2 pg (25.0-35.0); MCHC 31.8 g/dL (31.0-37.0); MCV 94.8 fL (80.0-100.0); Mean Platelet Volume 7.3; Monocytes # (A) 0.4 k/uL (0-1.0); Monocytes % (A) 6 %; Neutrophils # (A) 3.2 k/uL (1.3-7.7); Neutrophils % (A) 55 %; Platelet Count 258 k/uL (150-450); RDW 13.1 % (11.5-15.5); WBC 5.8 k/uL (3.8-10.6)
[2019-10-28 08:52] LABS: INR 0.9 (<1.2); Partial Thromboplastin Time 22.9 sec (22.0-30.0); Prothrombin Time 9.8 sec (9.0-12.0)
[2019-10-28 09:53] LABS: Appearance,Urine Clear (Clear); Bilirubin,Urine Negative (Negative); Blood,Urine Negative (Negative); Color,Urine Yellow; Glucose,Urine (UA) Negative (Negative); Hyaline Casts,Urine 16 /lpf (0-2); Ketones,Urine Negative (Negative); Leukocyte Esterase,Urine Moderate (Negative); Mucus,Urine Few /hpf; Nitrite,Urine Negative (Negative); Protein,Urine Trace (Negative); RBC,Urine 2 /hpf (0-5); Specific Gravity,Urine 1.024 (1.001-1.035); Squamous Epithelial Cell,Urine <1 /hpf (0-4); Urobilinogen,Urine <2.0 mg/dL (<2.0); WBC,Urine 5 /hpf (0-5)
== END ==
LOC: LABPAT 07:40
PROVIDERS: ATTEND Orthopaedic Surgery Orthopaedic Surgery of the Spine
DX: Z01.818 Encounter for other preprocedural examination (principal); Z01.812 Encounter for preprocedural laboratory examination; M48.061 Spinal stenosis, lumbar region without neurogenic claudication; Z79.01 Long term (current) use of anticoagulants
CPT/HCPCS: 36415; 81001; 85025; 85610; 85730; 86850; 86900; 86901; 87070; 93005

== ENCOUNTER → 2019-11-08 | Outpatient (CLI) | payer MEDICARE, BC ==
--- NOTE | 2019-11-08 10:07 | CT ---
EXAMINATION TYPE: CT chest w con DATE OF EXAM: 11/08/2019 COMPARISON: CT June 14, 2010 and November 27, 2018 HISTORY: abnormal lung field CT DLP: 220.9 mGycm. Automated Exposure Control for Dose Reduction was Utilized. TECHNIQUE: CT scan of the thorax is performed following with IV Contrast, patient injected with 100 mL of Isovue 300. FINDINGS: LUNGS: Persistent mild right apical pleural/parenchymal scarring. Persistent dense lobulated calcifie d plaques in the right lung base. Correlate for history of remote trauma or hemothorax. Persistent mi [id number] right basilar linear scarring. No new nodules or masses. No new suspicious consolidati on. No pleural effusion or pneumothorax noted bilaterally. Persistent MEDIASTINUM: There are no greater than 1 cm hilar or mediastinal lymph nodes. No cardiomegaly or pe ricardial effusion is seen. 4 vessel origin from aortic arch which is normal variant. Coronary arter y calcification redemonstrated. OTHER: Cholecystectomy clips are again seen. Partial visualization of thin-walled cysts scattered thr oughout both kidneys. Surgical change in the cervical spine is partially imaged. There is S-shaped sc oliotic curvature redemonstrated. IMPRESSION: Chronic changes without acute pulmonary process. No significant change from [address] CT.
== END | disposition home or self-care (01) ==
LOC: RADCTMAIN 08:16
PROVIDERS: ATTEND Internal Medicine Critical Care Medicine
DX: R91.8 Other nonspecific abnormal finding of lung field (principal)
CPT/HCPCS: 82565; 84520; 71260; 36415; Q9967

== ENCOUNTER 2019-11-11 11:19 | Observation (INO) | payer MEDICARE, BC ==
[2019-10-31 12:48] VITALS: BMI 32.8
[~2019-11-11 11:19] MED LIST changes: -BUPIVACAINE (PF) 0.5% 30 ML VIAL ONE; +DEXAMETHASONE SOD PHOSPHATE 10 MG/ML 1 ML VIAL IV ONE; -LACTATED RINGERS 1,000 ML IV SCH; +LIDOCAINE 1% (10MG/ML) FOR IV START INTRADERMA PRN; +MIDAZOLAM 2 MG/2 ML VIAL IV PRN; -MIDAZOLAM 2 MG/2 ML VIAL ONE; +ceFAZolin 1,000 MG in SODIUM CHLORIDE 0.9% IRRIGATIO 1,000 ML IRRIGATION ONE; +fentaNYL (PF) 50 MCG/ML 2 ML AMP IV PRN; -fentaNYL (PF) 50 MCG/ML 2 ML AMP ONE; -methylPREDNISolone ACETATE 40 MG/ML 1 ML VIAL ONE
[2019-11-11] MEDS: LACTATED RINGERS 1,000 ML IV SCH (11:46)
[2019-11-11] MEDS ORDERED: PROPOFOL 10 MG/ML 20 ML VIAL IV ONE (12:42)
[2019-11-11] MEDS ORDERED: MIDAZOLAM 2 MG/2 ML VIAL ONE (12:42)
[2019-11-11] MEDS ORDERED: GLYCOPYRROLATE 0.2 MG/ML 2 ML VIAL ONE (12:42)
[2019-11-11] MEDS ORDERED: LIDOCAINE 1% INJ 10MG/ML (20 ML MDV) ONE (12:42)
[2019-11-11] MEDS ORDERED: fentaNYL (PF) 50 MCG/ML 2 ML AMP ONE (12:42)
[2019-11-11] MEDS ORDERED: HEPARIN SODIUM,PORCINE 10,000 UNIT/ML 1 ML VIAL ONE (12:42)
[2019-11-11] MEDS ORDERED: SODIUM CHLORIDE 0.9% IRRIG 1,000 ML BTL IRRIGATION ONE (12:42)
[2019-11-11] MEDS ORDERED: ePHEDrine SULFATE/0.9% NACL/PF 50 MG/5 ML SYRINGE IV ONE (12:42)
[2019-11-11] MEDS ORDERED: PHENYLEPHRINE-0.9% NACL SYG 1 MG/10 ML SYRINGE ONE (12:42)
[2019-11-11] MEDS ORDERED: NEOSTIGMINE 1 MG/ML 10 ML VIAL ONE (12:42)
[2019-11-11] MEDS ORDERED: SUCCINYLCHOLINE CHLORIDE 100 MG/5 ML SYR IV ONE (12:42)
[2019-11-11] MEDS ORDERED: ceFAZolin 1,000 MG in SODIUM CHLORIDE 0.9% 1,000 ML IRRIGATION ONE (13:21)
[2019-11-11] MEDS ORDERED: THROMBIN (BOVINE) 5,000 UNIT VIAL TOPICAL ONE (13:24)
[2019-11-11] MEDS ORDERED: GELATIN SPONGE,ABSORB (LARGE) 1 EACH SPONGE TOPICAL ONE (13:24)
[2019-11-11] MEDS ORDERED: BUPIVACAINE (PF) 0.5% 30 ML VIAL SQ ONE (13:44)
[2019-11-11] MEDS ORDERED: LACTATED RINGERS 1,000 ML IV ONE ×2 (14:19→15:47)
[2019-11-11] MEDS ORDERED: MAGNESIUM HYDROXIDE 2,400 MG/10 ML CUP PO PRN (16:21)
[2019-11-11] MEDS ORDERED: BENZOCAINE/MENTHOL LOZENG 1 EACH LOZENGE MUCOUS MEM PRN (16:21)
[2019-11-11] MEDS ORDERED: HYDROcodone/APAP 5-325MG 1 EACH TAB PO PRN (16:21)
[2019-11-11] MEDS ORDERED: HYDROmorphone 0.5 MG/0.5 ML SYRINGE IVP PRN (16:21)
[2019-11-11] MEDS ORDERED: ONDANSETRON 4 MG/2 ML VIAL IVP PRN (16:21)
[2019-11-11] MEDS ORDERED: NITROGLYCERIN SL TABS 0.4 MG TAB SUBLINGUAL PRN (16:24)
[2019-11-11] MEDS ORDERED: traMADol 50 MG TAB PO PRN (16:24)
[2019-11-11] MEDS ORDERED: ALPRAZolam 0.5 MG TAB PO PRN (16:24)
--- NOTE | 2019-11-11 16:32 | P.OP ---
Date of Procedure: 11/11/19 Preoperative Diagnosis: Degenerative scoliosis, spinal stenosis L4 5 L5-S1, degenerative disc disease, herniated disc L4 5 L5-S1, facet arthrosis, low back pain, lower extremity radiculopathy Postoperative Diagnosis: Same Anesthesia: GETA Pathology: none sent Condition: stable Disposition: PACU Description of Procedure: DESCRIPTION OF PROCEDURE(S): BRIEF OPERATIVE NOTE Preoperative Diagnosis: Degenerative scoliosis, spinal stenosis L4 5 L5-S1, degenerative disc disease, herniated disc L4 5 L5-S1, facet arthrosis, low back pain, lower extremity radiculopathy Postoperative Diagnosis: Same Procedure: Revision Laminectomy and decompression L4 5 L5-S1 Computer navigation aided Minimally invasive Posterior lateral decompression and fusion L4 5 L5-S1 Minimally invasive Transforaminal lumbar interbody fusion for a 360 fusion L4 5 L5-S1 Discectomy for decompression L4 5 L5-S1 Placement of interbody graft L4 5 L5-S1 L4 5 L5-S1 Use of computer navigation for fusion Local autogenous bone grafting Aspiration of bone marrow from the pedicle of L4 Use of bone graft extenders Surgeon: Dr. Levin Video Tape Duplicator: Saurabh MELARA who is present throughout the entire the case persistence during positioning, dissection, exposure, visualization, and all crucial elements of the case as well as closure. Anesthesia: General anesthesia per Estimated blood loss: Approximately 100 mL Complications: None apparent Components implanted: K2M minimally invasive Jasper pedicle screw system withscrews measuring 6.5 mm in diameter to rods one [place] interbody cage with 10 mL of osteo amp bio4 bone graft substitute and 30 mL of the BX bone fibers to supplement the local autogenous bone graft and bone marrow aspirate Disposition: To recovery room in good stable condition. OPERATIVE INDICATIONS The patient has had severe issues at their lower extremity in her lower back over the past several months. He is complaining of some back pain over the past several years but has had worsening pain over the past few months as well as some radicular symptoms at the lower extremity worse on the left than the right .he is having severe radicular symptoms lower extremity with some weakness. he is unable to obtain any comfort. We did aggressive conservative treatment with medications therapy and interventional pain management however she was not having any relief. His imaging showed degenerative scoliosis of his lumbar spine with foraminal stenosis and disc herniation with disc degeneration which can really well with his low back and lower extremity symptoms The patient has been through conservative treatment. We discussed various treatment options including surgery, and the patient wishes to proceed with surgery We discussed the risk, patient's alternatives and benefits of surgery including but not li mited to, risk of bleeding risk of infection, risk of need for further surgery, risk of decreased, loss of motion, muscle function, malunion nonunion, hardware failure, nerve damage, paralysis, heart attack, blindness and . She understood issues with the current pandemic and the possibility of exposure. OPERATIVE SUMMARY After discussing all the risks, patient alternatives and benefits at length, the patient elected to proceed with surgical intervention, signed informed consent, and presented for their procedure. The patient was seen and examined in the preoperative holding area and the surgical site was marked. The patient was given antibiotics and brought to the operating room. The patient was sedated and intubated by anesthesia in standard fashion. The patient was positioned on to the operating room table in a prone position on the appropriate frame which was well-padded and well molded. We were careful to pad any bony prominences and pressure points. We were careful to maintain the patient's cervical spine and good neutral alignment and position throughout. The patient was prepped and draped in a normal standard fashion. An appropriate timeout and keystone protocol performed. We were able to proceed with the surgery. The local wound area was infiltrated with local anesthetic. I was able utilize C-arm guidance to establish appropriate position over the ped icles bilaterally at the appropriate levels at L4 5 and S1 . With the appropriate levels confirmed was able to make small stab incisions over the appropriate pedicle sites bilaterally. Utilizing C-arm in the computer navigation device I was able to establish bony landmarks at the right iliac crest for a bony reference point for the navigation device. I was able to establish a Jamshidi needle over the lateral aspect of the pedicle and advanced the trocar into the pedicle being careful not to breech superiorly inferiorly medially or laterally using computer navigation device. Position was confirmed regularly with AP and lateral images on C-arm and with the computer navigation device. I was able to establish the trocar into the pedicle appropriately into the posterior aspect of the vertebral body bilaterally at the appropriate levels of L4 5 and S1. This was done at each of the pedicle positions and each of the vertebrae. At L4 I was able to withdraw approximately 20 mL of bone marrow aspirate for use and supplementation of the bone graft later in the case. I was able place the guidewire into the trocar and into the vertebral body appropriately under C-arm guidance. Dissection was taken down over the wire to the appropriate starting position for the screw placed. The appropriate length screw was chosen, threaded over the guidewire and screwed appropriately into the pedicle and vertebral body under C-arm guidance in excellent alignment and position with good bony purchase. This is done at each of the screw sites at the appropriate levels at L4 5 and S1. With the screws intact I extended the incision to connect the screw hole sites on the most symptomatic side on the left. I dissected down to establish access over the pars and lamina to the base of the spinous process. I was able to expose the facet joint. The capsule the facet was taken down and showed some facet arthrosis at the joint. I was able to use a combination of curettes and Kerrison rongeurs and a high-speed drill to take down the facet joint and do a facetectomy. I was able get excellent foraminal decompression and central decompression with undermining across midline to perform a laminectomy centrally and contralaterally. As able get good central decompression. The ligamentum flavum was taken down to further decompress centrally and at bilateral neural foramen. I was able to expose the disc space and visualize the traversing nerve root. Note was made of some disc protrusion and disc herniation that was adherent to the traversing nerve root at the level causing further compression of the nerve root. I was able to establish a annulotomy at the appropriate level protecting soft tissue and neural structures. Note was made of some disc desiccation at the disc and evidence of the prior discectomy. I performed a complete discectomy with accommodation of curettes and rasps and scrapers. I was able get good endplate preparation at the disc space. I sized for the appropriate size interbody spacer protecting the soft tissue and neural structures. The wound was copiously irrigated and suctioned dry. There is no evidence of any dural tear or leak. I was able to pack the disc space with local autogenous bone graft as well as a small amount of bone graft which was also placed into the interbody cage itself. Protecting the soft tissue structures and neural structures I was able place the interbody cage in good alignment and good position with good fit and fill at the interbody space. I was able get good reduction of the asymmetric disc degeneration and some reduction of the degenerative scoliosis and the position was confirmed with C-arm guidance. Good hemostasis maintained. There is no evidence of any dural tear or leak. The wound was irrigated and suctioned dry. With the hardware intact, intraoperative C-arm imaging was again taken which showed good alignment and position of the hardware at the appropriate levels. We were then able to measure, contour and place the rods and appropriate hardware bilaterally. I was able to place capcrews, tighten them down, and torque them with the torque screwdriver appropriately. I was able get some reduction of the degenerative scoliosis with placement of the hardware. With this intact I was able to place the local autogenous bone graft with additional bone graft enhancer as necessary into the posterior lateral gutters over the decorticated transverse processes and facet joints on the contralateral side. The remainder of the bone graft was placed over the facet joint on the contralateral side after taking down the facet joint capsule. With the bone graft intact, a stable construct, and good decompression at the appropriate levels, we were able to proceed with closure. Good hemostasis was maintained. There is no evidence of dural tear or leak. The fascia was closed for a watertight closure. he subcuticular tissue was closed with absorbable suture. The wound was cleaned and dried and dressed with the appropriate dressing. The drapes were broken down. The patient was gently rolled back onto their hospital bed being careful to maintain their cervical spine and good neutral alignment and position. They were woken up by anesthesia, extubated, and brought to the recovery room in good stable condition. The patient will be admitted to the hospital for appropriate postoperative care, medical management and monitoring. We will continue to follow them closely about the postoperative course.
[2019-11-11] MEDS: HYDROmorphone 1 MG/ML 1 ML SYRINGE IVP ONE ×4 (16:54→17:43)
--- NOTE | 2019-11-11 17:34 | FL ---
EXAMINATION TYPE: FL guidance operating room, XR lumbar spine 2 or 3V DATE OF EXAM: 11/11/2019 COMPARISON: None HISTORY: Lumbar spine surgery TECHNIQUE: Fluoroscopy. FINDINGS: Fluoroscopic guidance was provided during procedure for performing physician. A total of 3 2 seconds of fluoroscopic time was utilized during the procedure and 3 spot images was acquired. Plea se see operative report for additional details. IMPRESSION: As Above.
[2019-11-11] MEDS: CYCLOBENZAPRINE 10 MG TAB PO SCH (22:15)
[2019-11-11] MEDS: HYDROcodone/APAP 5-325MG 1 EACH TAB PO PRN (22:16)
[2019-11-11] MEDS: SODIUM CHLORIDE 0.9% 1,000 ML IV SCH (22:22)
[2019-11-12] MEDS: HYDROmorphone 1 MG/ML 1 ML SYRINGE IVP PRN ×5 (01:59→23:39)
[2019-11-12] MEDS: LACTATED RINGERS 1,000 ML IV SCH ×3 (05:13→11:31)
[2019-11-12] MEDS: CYCLOBENZAPRINE 10 MG TAB PO SCH ×3 (07:00→21:16)
[2019-11-12] MEDS: ISOSORBIDE MONONITRATE ER 60 MG TAB.ER.24H PO SCH (07:00)
[2019-11-12] MEDS: ASPIRIN 81 MG PO SCH (07:00)
[2019-11-12] MEDS: atenoloL 25 MG TAB PO SCH (07:01)
[2019-11-12] MEDS: buPROPion XL 150 MG TAB.ER.24H PO SCH (07:01)
[2019-11-12] MEDS: amLODIPine 5 MG TAB PO SCH (07:01)
[2019-11-12] MEDS: SENNOSIDES-DOCUSATE SODIUM 1 EACH TAB PO SCH (07:01)
[2019-11-12] MEDS: ATORVASTATIN 80 MG TAB PO SCH (07:01)
[2019-11-12 08:45] LABS: Basophils % (A) 0 %; Eosinophils # (A) 0.1 k/uL (0-0.7); Eosinophils % (A) 1 %; HCT 39.1 % (39.0-53.0); HGB 12.6 gm/dL (13.0-17.5); Lymphocytes # (A) 0.9 k/uL (1.0-4.8); Lymphocytes % (A) 8 %; MCH 29.7 pg (25.0-35.0); MCHC 32.1 g/dL (31.0-37.0); MCV 92.3 fL (80.0-100.0); Mean Platelet Volume 7.1; Monocytes # (A) 0.8 k/uL (0-1.0); Monocytes % (A) 7 %; Neutrophils # (A) 9.3 k/uL (1.3-7.7); Neutrophils % (A) 83 %; Platelet Count 234 k/uL (150-450); RBC 4.24 m/uL (4.30-5.90); WBC 11.2 k/uL (3.8-10.6)
[2019-11-12 09:01] LABS: African American GFR (CKD) >90 (>60 ml/min/1.73 sqM); Anion Gap 6 mmol/L; Blood Urea Nitrogen 16 mg/dL (9-20); Calcium 8.7 mg/dL (8.4-10.2); Carbon Dioxide 28 mmol/L (22-30); Chloride 102 mmol/L (98-107); Glucose 97 mg/dL (74-99); Non-African American GFR(CKD) 85 (>60 ml/min/1.73 sqM); Potassium 3.8 mmol/L (3.5-5.1); Sodium 136 mmol/L (137-145)
[2019-11-12] MEDS: HYDROcodone/APAP 5-325MG 1 EACH TAB PO PRN ×2 (09:51→16:51)
[2019-11-12] MEDS: SODIUM CHLORIDE 0.9% 1,000 ML IV SCH (11:30)
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
--- NOTE | 2019-11-12 13:09 | P.PN ---
Progress Note - Text Progress Note Date: 11/12/19 Orthopedic Spine: History of present illness: Patient is a pleasant 73-year-old male who is seen and examined at the bedside following posterior lateral decompression and fusion performed yesterday. Patient states they are doing well postsurgically. He currently denies any lotion weakness radiculopathy bilaterally. He feels his legs have significantly improved postoperative. He does have pain at the surgical sites. He has been able to ambulate the hallways without significant difficulty. He is currently weaning off of IV Dilaudid. His pain continues to be controlled with oral [place]. He did have a Costa catheter during surgical intervention which was discontinued this morning. He did have some blood in his urine this morning. He is not having any discomfort or difficulty with urination. [facility] is his primary care provider. He has been using his incentive spirometer. Currently does not complain of nausea, vomiting, fever, or chills. Patient states pain has been adequately controlled. Patient is eating and voiding freely without difficulty. Nursing states his recent temperature reading is 100F. Patient does not feel febrile. Patient's past medical history includes heart disease, hypertension, hyperlipidemia, lung disease, coronary artery disease, COPD, and myocardial infarction. Physical Exam Lumbar Fusion: Status post surgical day number 1 Patient is awake, alert, and oriented 3 Vital signs stable Good chest excursion with deep inspiration and expiration Abdomen soft nontender Dorsiflexion, plantarflexion, and extensor hallucis longus positive sustained bilaterally No signs or symptoms of DVT; no calf pain; pneumatic cuffs intact bilateral lower extremities Dressings are clean, dry, and intact; no erythema, purulence, or signs of infection No pain with palpation of the surgical sites Neurovascularly intact bilaterally lower extremities Assessment: L4-5 and L5-S1 minimally invasive posterior lateral decompression and fusion with transforaminal lumbar interbody fusion Low back pain Degenerative scoliosis L4-5 and L5-S1 herniated nucleus pulposus and spinal canal stenosis Lumbar degenerative disc disease Lumbar facet arthrosis Low grade temperature at 100 Heart disease Hypertension Hyperlipidemia History of lung disease History of coronary artery disease COPD History of myocardial infarction Plan: 1. Ambulate as tolerated; work with Physical Therapy to increase mobilization 2. Continue pain control with IV and oral medications; we will continue to wean patient off of IV Dilaudid in anticipation for discharge home tomorrow if cleared by Dr. Lindo or Dr. Harper in pulmonology 3. Dressing to remain intact with Optifoam; dressing over the right iliac crest is removed; patient may shower with dressing is intact 4. Medical management can continue to manage patient for patient's other medical diagnoses including low grade temperature 100, heart disease, hype rtension, hyperlipidemia, COPD, lung disease, coronary artery disease, and history of myocardial infarction 5. We will continue to follow the patient closely; if the patient continues to improve, we may plan for discharge home as early as tomorrow, 11/13/2019 6. Patient can follow-up with Saurabh Lopez PA-C or Dr. Lc Levin at [facility] in 2-3 weeks following discharge
[2019-11-12 13:13] LABS: Appearance,Urine Clear (Clear); Bacteria,Urine Rare /hpf; Bilirubin,Urine Negative (Negative); Blood,Urine Large (Negative); Color,Urine Light Yellow; Glucose,Urine (UA) Negative (Negative); Ketones,Urine Negative (Negative); Leukocyte Esterase,Urine Large (Negative); Mucus,Urine Rare /hpf; Nitrite,Urine Negative (Negative); PH, Urine 6.5 (5.0-8.0); Protein,Urine Negative (Negative); RBC,Urine 5 /hpf (0-5); Specific Gravity,Urine 1.006 (1.001-1.035); Squamous Epithelial Cell,Urine <1 /hpf (0-4); Urobilinogen,Urine <2.0 mg/dL (<2.0); WBC,Urine 40 /hpf (0-5)
[2019-11-13] MEDS: HYDROmorphone 1 MG/ML 1 ML SYRINGE IVP PRN (03:38)
[2019-11-13 04:50] VITALS: PULSE 91
[2019-11-13] MEDS: buPROPion XL 150 MG TAB.ER.24H PO SCH (07:57)
[2019-11-13] MEDS: atenoloL 25 MG TAB PO SCH (07:57)
[2019-11-13] MEDS: amLODIPine 5 MG TAB PO SCH (07:57)
[2019-11-13] MEDS: ISOSORBIDE MONONITRATE ER 60 MG TAB.ER.24H PO SCH (07:57)
[2019-11-13] MEDS: ASPIRIN 81 MG PO SCH (07:57)
[2019-11-13] MEDS: CYCLOBENZAPRINE 10 MG TAB PO SCH (07:57)
[2019-11-13] MEDS: ATORVASTATIN 80 MG TAB PO SCH (07:57)
[2019-11-13] MEDS: SENNOSIDES-DOCUSATE SODIUM 1 EACH TAB PO SCH (07:57)
[2019-11-13] MEDS: HYDROcodone/APAP 5-325MG 1 EACH TAB PO PRN (07:57)
--- NOTE | 2019-11-13 10:28 | P.DS ---
Providers Date of admission: 11/12/19 15:43 Expected date of discharge: 11/13/19 Attending physician: Kirk Levin Consults: 11/11/19 16:21 Consult Physician Routine Consulting Provider: Claudio Harper Consult Reason/Comments: Medical management Do you want consulting provider notified?: Yes Primary care physician: Claudio Harper - Discharge Diagnosis(es) (1) Status post lumbar spinal fusion Current Visit: Yes Status: Acute (2) Low back pain Current Visit: Yes Status: Acute (3) Degenerative scoliosis in adult patient Current Visit: Yes Status: Acute (4) Lumbar degenerative disc disease Current Visit: Yes Status: Acute (5) Lumbar facet arthropathy Current Visit: Yes Status: Acute (6) Heart disease Current Visit: Yes Status: Acute (7) Hypertension Current Visit: Yes Status: Acute (8) History of lung disease Current Visit: Yes Status: Acute (9) History of coronary artery disease Current Visit: Yes Status: Acute (10) COPD (chronic obstructive pulmonary disease) Current Visit: Yes Status: Acute (11) History of myocardial infarction Current Visit: Yes Status: Acute (12) Urinary tract infection Current Visit: No Status: Acute Hospital Course: This is a pleasant 73-year-old male who presented with L4-5 and L5-S1 herniated nucleus pulposus and spinal canal stenosis, lumbar degenerative disc disease, lumbar facet arthrosis, low back pain with lower extremity radiculopathy, and degenerative scoliosis who failed outpatient conservative therapy. He was admitted for an L4-5 and L5-S1 minimally invasive posterior lateral decompression and fusion with transforaminal lumbar interbody fusion. The patient tolerated the procedure well and did well postoperatively. He is not experiencing any lower extremity weakness or radiculopathy bilaterally. He does continue to have some pain at the surgical site but feel his pain is adequately controlled. He feels he would be able to manage his pain at home. He is looking forward to discharge home. In seeing a low-grade temperature yesterday. He was found to have a urinary tract infection. He was started on Rocephin by Dr. Lindo. Since that time his temperature has returned to normal limits. He is urinating frequently but without difficulty. We discussed he would be clear for discharge from an orthopedic spine standpoint pending clearance by Dr. Lindo or Dr. Harper. We also discussed we'll plan to have been prescribed his antibiotics for his urinary tract infection. He has had one small bowel movement during his admission. Condition on day of discharge stable. Patient will be discharged home. Patient was cleared preoperatively for surgery by Dr. Harper. Patient currently denies any nausea, vomiting, fever, or chills. Patient is eating and voiding freely without difficulty. Patient may shower Optifoam dressing intact. Patient may remove Optofoam dressing in 3 days and shower without a dressing at that time. Patient should refrain from driving until at least after their first follow-up appointment in the office. Patient should avoid excessive bending, lifting, and twisting; no lifting greater than 10 pounds. Patient's past medical history includes heart disease, hypertension, hyperlipidemia, lung disease, coronary artery disease, COPD, and myocardial infarction. MAPS has been reviewed today, 11/13/2019, with an Overall Overdose Risk Score of 470. An "Opiod Start Talking" Form has been signed and placed in the patient's chart. A prescription has been written for [place] 5 mg/325 mg 1-2 tabs every 6 hours as needed for pain, dispensed #56. Patient should avoid anti-inflammatory medications over the next 6 weeks postoperatively. Patient should discontinue other previously prescribed Ultram while taking [place] 5 mg/325 mg Patient may resume other previously prescribed home medications. Take medications as prescribed. Assessment: L4-5 and L5-S1 minimally invasive posterior lateral decompression and fusion with transforaminal lumbar interbody fusion Low back pain Degenerative scoliosis L4-5 and L5-S1 herniated nucleus pulposus and spinal canal stenosis Lumbar degenerative disc disease Lumbar facet arthrosis Urinary tract infection Heart disease Hypertension Hyperlipidemia History of lung disease History of coronary artery disease COPD History of myocardial infarction Procedures: L4-5 and L5-S1 minimally invasive posterior lateral decompression and fusion with transforaminal lumbar interbody fusion Patient Condition at Discharge: Stable Plan - Discharge Summary Discharge Rx Participant: Yes New Discharge Prescriptions: New Hydrocodone/Acetaminophen [[place] 5-325] 1 - 2 each PO Q6HR PRN #56 tab PRN Reason: Pain No Action amLODIPine [Norvasc] 5 mg PO DAILY Nitroglycerin Sl Tabs [Nitrostat] 0.4 mg SUBLINGUAL Q5M PRN PRN Reason: Chest Pain Isosorbide Mononitrate ER [Imdur] 60 mg PO DAILY atenoloL [Tenormin] 25 mg PO DAILY Aspirin EC [Ecotrin Low Dose] 81 mg PO DAILY Atorvastatin [Lipitor] 80 mg PO DAILY ALPRAZolam [Xanax] 0.5 mg PO BID PRN PRN Reason: Anxiety buPROPion XL [Wellbutrin Xl] 150 mg PO DAILY traMADol HCL [Ultram] 100 mg PO Q6HR PRN PRN Reason: Pain Cyclobenzaprine [Flexeril] 10 mg PO TID Discharge Medication List Isosorbide Mononitrate ER [Imdur] 60 mg PO DAILY 03/31/14 [History] Nitroglycerin Sl Tabs [Nitrostat] 0.4 mg SUBLINGUAL Q5M PRN 03/31/14 [History] amLODIPine [Norvasc] 5 mg PO DAILY 03/31/14 [History] atenoloL [Tenormin] 25 mg PO DAILY 03/31/14 [History] Aspirin EC [Ecotrin Low Dose] 81 mg PO DAILY 05/09/16 [History] Atorvastatin [Lipitor] 80 mg PO DAILY 05/09/16 [History] ALPRAZolam [Xanax] 0.5 mg PO BID PRN 08/14/17 [History] buPROPion XL [Wellbutrin Xl] 150 mg PO DAILY 11/15/18 [History] Cyclobenzaprine [Flexeril] 10 mg PO TID 11/01/19 [History] traMADol HCL [Ultram] 100 mg PO Q6HR PRN 11/01/19 [History] Hydrocodone/Acetaminophen [[place] 5-325] 1 - 2 each PO Q6HR PRN #56 tab 11/13/19 [Rx] Follow up Appointment(s)/Referral(s): Saurabh Lopez, PAC [PHYSICIAN COAL TRIMMER MACHINE OPERATOR] - 2 Weeks (Patient may follow-up with Saurabh Lopez PA-C or Dr. Lc Levin at [facility] in 2-3 weeks following discharge. ) Activity/Diet/Wound Care/Special Instructions: 1. Patient may shower with Optifoam dressing intact. 2. Patient may remove Optifoam dressing in 3 days and shower without a dressing at that time. 3. Patient should refrain from driving until at least after their first follow- up appointment in the office. 4. Patient should avoid excessive bending, twisting, and lifting; no lifting greater than 10 pounds 5. Take medications as prescribed 6. Do not soak in tub Discharge Disposition: HOME SELF-CARE
[2019-11-13 11:20] VITALS: BP 111/64; RESP 20; TEMP 99.1
--- NOTE | 2019-11-13 14:23 | P.PN ---
Subjective Progress Note Date: 11/13/19 Principal diagnosis: degenerative disc disease, low back pain, acute urinary tract infection This is a 73-year-old white male patient who follows with Dr. Harper for primary care services and has a history of COPD with baseline FEV1 of 2.23 L or 84% of predicted, history of CVA, hypertension, GERD/reflux, hyperlipidemia, history of myocardial infarction, vitamin D deficiency, anxiety, and history of severe low back pain related to lumbar spondylosis, lumbar facet arthropathy, and lumbar spinal stenosis, with previous history of radiofrequency ablation of L3, L4, L5, right and left, and previous history of multiple injections. Despite that patient has been having ongoing low back pain, and complaints of weakness in bilateral lower extremities. On 11/11/2019 patient underwent minimally invasive posterior lumbar decompression fusion/treatments for mental lumbar interbody fusion of L4-5, L5-S1, with neural integrity monitor. Today is postoperative day 1, patient is seen on the regular medical surgical floor, she is awake and alert, resting comfortably in bed, his lumbar spine incisions covered with surgical dressings, clean dry and intact, his back is mildly sore, but pain is reasonably controlled, he is awake and alert, although his states that he seems to be mildly confused and she suspects possibility of urinary tract infection, patient did have a low-grade fever this morning. Lung sounds are clear, no rhonchi or wheezing, patient is on room air sats is 93-95%, hemodynamically he is stable, no cough or congestion. Today's labs have been reviewed showing white blood cell count of 11.2, hemoglobin is 12.6, sodium is 136, the rest of the electrolytes and renal profile were unremarkable. On 11/13/2019 patient seen in follow-up on a general medical surgical floor. He is up ambulating with a walker, tolerating activity well, his low back pain is reasonably well-controlled, he is a urinalysis came back positive for signs of urinary tract infection, urine culture is pending, is having low-grade fever, and he was started on Rocephin for empiric antibiotic coverage, otherwise no acute events overnight, lung sounds are clear, mentation is appropriate, his is not at the bedside at the moment, the patient is answering questions appropriately, no signs of altered mentation, no fever or chills. Objective - Vital Signs Vital signs: Vital Signs Temp 99.1 F 11/13/19 11:19 Pulse 91 11/13/19 11:19 Resp 20 11/13/19 11:19 BP 111/64 11/13/19 11:19 Pulse Ox 96 11/13/19 11:19 Intake & Output 11/12/19 11/13/19 11/13/19 18:59 06:59 18:59 Output Total 600 Balance -600 Output: Urine 600 Uretheral (Costa) 600 Other: Voiding Method Toilet Toilet Toilet Urinal Urinal Urinal # Voids 2 2 - Exam GENERAL EXAM: Alert, pleasant, 73-year-old white male, on room air, with a pulse ox of 96%, comfortable in no apparent distress. HEAD: Normocephalic/atraumatic. EYES: Normal reaction of pupils, equal size. Conjunctiva pink, sclera white. NOSE: Clear with pink turbinates. THROAT: No erythema or exudates. NECK: No masses, no JVD, no thyroid enlargement, no adenopathy. CHEST: No chest wall deformity. Symmetrical expansion. LUNGS: Equal air entry with no crackles, wheeze, rhonchi or dullness. CVS: Regular rate and rhythm, normal S1 and S2, no gallops, no murmurs, no rubs ABDOMEN: Soft, nontender. No hepatosplenomegaly, normal bowel sounds, no guarding or rigidity. EXTREMITIES: No clubbing, no edema, no cyanosis, 2+ pulses and upper and lower extremities. MUSCULOSKELETAL: Muscle strength and tone normal. SPINE: No scoliosis or deformity, 3 incisions across the lower lumbar area covered with surgical dressings, clean dry and intact SKIN: No rashes CENTRAL NERVOUS SYSTEM: Alert and oriented -3. No focal deficits, tone is normal in all 4 extremities. PSYCHIATRIC: Alert and oriented -3. Appropriate affect. Intact judgment and insight. - Labs CBC & Chem 7: 11/12/19 08:08 11/12/19 08:08 Labs: Microbiology - Last 24 Hours (Table) 11/12/19 12:40 Urine Culture - Preliminary Urine,Voided Assessment and Plan Plan: Assessment: #1. Degenerative scoliosis, spinal stenosis, of L4, 5, L5S1, degenerative disc disease, facet arthrosis, chronic severe low back pain with lower extremity radiculopathy, status post minimally invasive posterior lumbar decompression fusion/transforaminal lumbar interbody fusion of L4-5, L5-S1, with neural int egrity monitor, postoperative day 2 #2. Confusion, low-grade fever, related to acute urinary tract infection, urine cultures pending, patient is empirically covered with Rocephin. Confusion has improved on today's exam #3. History of COPD, not oxygen dependent, with FEV1 of 2.23 L or 84% of pre dicted, consistent with mild obstruction #4. Hypertension #5. Hyperlipidemia #6. History of myocardial infarction #7. Vitamin D deficiency #8. History of CVA TIA #9. Anxiety #10. History of pancreatitis #11. 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 Harper in the office in 7-10 days. I performed a history & physical examination of the patient and discussed their management with my nurse practitioner, Violette Mesa. I reviewed the nurse practitioner's note and agree with the documented findings and plan of care. Lung sounds are positive for clear breath sounds. The findings and the impression was discussed with the patient. I attest to the documentation by the nurse practitioner. Time with Patient: Less than 30
== END 2019-11-13 12:35 | disposition home or self-care (01) ==
LOC: OR 11:19 → EDSTATUS 12:30 → 5NMEDONC 16:37 → OR 11-12 15:43 → 5NMEDONC 11-12 15:43
PROVIDERS: ADMIT Orthopaedic Surgery Orthopaedic Surgery of the Spine; ATTEND Orthopaedic Surgery Orthopaedic Surgery of the Spine
DX: M48.061 Spinal stenosis, lumbar region without neurogenic claudication (principal); M51.16 Intervertebral disc disorders with radiculopathy, lumbar region; M51.17 Intervertebral disc disorders with radiculopathy, lumbosacral region; Z79.899 Other long term (current) drug therapy; E78.5 Hyperlipidemia, unspecified; I25.10 Atherosclerotic heart disease of native coronary artery without angina pectoris; I25.2 Old myocardial infarction; Z86.73 Personal history of transient ischemic attack (TIA), and cerebral infarction without residual deficits; K21.9 Gastro-esophageal reflux disease without esophagitis; F32.9 Major depressive disorder, single episode, unspecified; F41.9 Anxiety disorder, unspecified; Z88.8 Allergy status to other drugs, medicaments and biological substances; Z82.49 Family history of ischemic heart disease and other diseases of the circulatory system; Z87.891 Personal history of nicotine dependence; J43.9 Emphysema, unspecified; Z87.01 Personal history of pneumonia (recurrent); I11.9 Hypertensive heart disease without heart failure; E55.9 Vitamin D deficiency, unspecified; Z98.1 Arthrodesis status
CPT/HCPCS: 97530; 97162; 86891; 80048; 85025; 81001; 87086; 72100; 22630; 22632; 22853 ×2; 20930; G0378 ×2; P9022; C1713; J2250; J1644; J2710; J0690 ×3; J2405; J2001; J0696; J3010; J1170 ×3; J2370; J0330; J2704; 86850; 86900; 86901

== ENCOUNTER 2020-02-19 18:49 | Emergency (ER) | payer MEDICARE, BC ==
[2020-02-19 19:23] VITALS: TEMP 98.8
[2020-02-19] MEDS ORDERED: HYDROmorphone 0.5 MG/0.5 ML SYRINGE IVP STA ×2 (19:54→21:50)
[2020-02-19] MEDS ORDERED: DIAZEPAM 5 MG/ML 2 ML INJ IVP STA ×2 (19:54→21:50)
[2020-02-19] MEDS ORDERED: ONDANSETRON 4 MG/2 ML VIAL IVP STA (19:58)
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
[2020-02-19 20:46] LABS: Basophils # (A) 0.1 k/uL (0-0.2); Basophils % (A) 1 %; Eosinophils # (A) 0.2 k/uL (0-0.7); Eosinophils % (A) 2 %; HCT 43.5 % (39.0-53.0); HGB 14.6 gm/dL (13.0-17.5); Lymphocytes # (A) 2.1 k/uL (1.0-4.8); Lymphocytes % (A) 26 %; MCH 29.8 pg (25.0-35.0); MCHC 33.6 g/dL (31.0-37.0); MCV 88.6 fL (80.0-100.0); Mean Platelet Volume 6.7; Monocytes # (A) 0.7 k/uL (0-1.0); Monocytes % (A) 8 %; Neutrophils # (A) 5.1 k/uL (1.3-7.7); Neutrophils % (A) 61 %; Platelet Count 350 k/uL (150-450); RBC 4.91 m/uL (4.30-5.90); RDW 14.9 % (11.5-15.5); WBC 8.3 k/uL (3.8-10.6)
[2020-02-19 20:54] LABS: INR 0.9 (<1.2); Partial Thromboplastin Time 22.1 sec (22.0-30.0); Prothrombin Time 9.6 sec (9.0-12.0)
[2020-02-19 20:56] LABS: Albumin 4.7 g/dL (3.5-5.0); Potassium 4.4 mmol/L (3.5-5.1); Total Bilirubin 0.9 mg/dL (0.2-1.3); Total Protein 7.7 g/dL (6.3-8.2)
--- NOTE | 2020-02-19 20:57 | CT ---
EXAMINATION TYPE: CT brain cspine wo con DATE OF EXAM: 02/19/2020 COMPARISON: None available. HISTORY: Fall with positive LOC. CT DLP: 1422.6 mGycm Automated exposure control for dose reduction was used. TECHNIQUE: CT scan of the head and cervical spine are performed without contrast. FINDINGS: There is no acute intracranial hemorrhage, mass effect, or midline shift identified. The ventricles and sulci are within normal limits in size. The globes are intact and the visualized sin uses are clear. Frontal lobe atrophy seen. There is age indeterminate nasal bone fracture. Cervical spine is visualized in its entirety from C1 through upper thoracic levels and demonstrates s atisfactory alignment without evidence of acute fracture or dislocation. Prevertebral soft tissue ap pears within normal limits. The C1-C2 articulation is unremarkable. Prior C5-C7 ACDF multilevel mod erate to severe spondylosis noted. IMPRESSION: 1. There is no acute fracture or dislocation evident in the cervical spine. 2. No acute intracranial hemorrhage, mass effect, or midline shift is seen. 3. Age-indeterminate nasal bone fracture.
--- NOTE | 2020-02-19 21:02 | CT ---
EXAMINATION TYPE: CT lumbar spine wo con DATE OF EXAM: 02/19/2020 8:44 PM COMPARISON: 06/09/2017. HISTORY: Low back pain post fall. CT DLP: 874.3 mGycm Automated exposure control for dose reduction was used. Technique and findings: Unenhanced CT of the lumbar spine was performed. Bone and soft tissue window settings are submitted as well as coronal and sagittal reconstructions. There is no acute fracture of the lumbar spine. Prior L3-S1 posterior instrument fusion is seen. Ther e is grade 1 retrolisthesis of L5 on S1. No significant paraspinal soft tissue abnormality. Partially imaged benign-appearing moderate to larg e moderate to large benign-appearing, bilateral simple appearing renal cysts. IMPRESSION: No acute fracture of the lumbar spine. L3-L5 fusion with grade 1 retrolisthesis at L5-S1.
[2020-02-19 22:31] VITALS: BP 132/89; PULSE 98; RESP 18
== END 2020-02-19 22:32 | disposition home or self-care (01) ==
LOC: EC 18:49
DX: S06.9X9A Unspecified intracranial injury with loss of consciousness of unspecified duration, initial encounter (principal); M62.830 Muscle spasm of back; I10 Essential (primary) hypertension; I20.9 Angina pectoris, unspecified; M19.90 Unspecified osteoarthritis, unspecified site; G89.29 Other chronic pain; M54.9 Dorsalgia, unspecified; E78.5 Hyperlipidemia, unspecified; H91.90 Unspecified hearing loss, unspecified ear; I25.2 Old myocardial infarction; Z79.82 Long term (current) use of aspirin; Z79.899 Other long term (current) drug therapy; Z88.6 Allergy status to analgesic agent; Z91.09 Other allergy status, other than to drugs and biological substances; Z86.73 Personal history of transient ischemic attack (TIA), and cerebral infarction without residual deficits; Z87.891 Personal history of nicotine dependence; Z98.1 Arthrodesis status; W11.XXXA Fall on and from ladder, initial encounter; Y92.008 Other place in unspecified non-institutional (private) residence as the place of occurrence of the external cause
CPT/HCPCS: 93005; 80053; 82550; 84484; 85025; 85610; 85730; 72125; 72131; 70450; 99284; 96374; 96375 ×2; 96376 ×2; J3360; J2405; J1170

== ENCOUNTER → 2020-04-27 | Outpatient (CLI) | payer MEDICARE, BC ==
[2020-04-27 17:09] LABS: ALT 22 U/L (10-49); AST 25 U/L (14-35); African American GFR (CKD) 62.3 (60.0-200.0); Albumin/Globulin Ratio 2.75 (1.60-3.17); Alkaline Phosphatase 91 U/L (41-126); BUN/Creat Ratio 14.62 Ratio (12.00-20.00); Calcium 9.4 mg/dL (8.7-10.3); Carbon Dioxide 27.6 mmol/L (21.6-31.8); Chloride 106 mmol/L (96-109); Chol/HDL Ratio 2.76; Cholesterol 135 mg/dL (0-200); Globulin 1.6 g/dL (1.6-3.3); Glucose 89 mg/dL (70-110); Non-African American GFR(CKD) 53.8 (60.0-200.0); Potassium 4.9 mmol/L (3.5-5.5); Sodium 139 mmol/L (135-145); Total Bilirubin 0.9 mg/dL (0.2-1.2); Triglycerides <50.0 mg/dL (0.0-149.0)
== END | disposition home or self-care (01) ==
LOC: LABWHC1 07:31
PROVIDERS: ATTEND Internal Medicine Interventional Cardiology
DX: E78.2 Mixed hyperlipidemia (principal)
CPT/HCPCS: 36415; 80053; 80061

== ENCOUNTER 2020-09-22 11:36 | Emergency (ER) | payer MEDICARE, BC ==
[2020-09-22] MEDS ORDERED: diazePAM 5 MG TAB PO STA (12:14)
[2020-09-22] MEDS ORDERED: MORPHINE SULFATE IR 15 MG TABLET PO STA ×2 (12:14→15:47)
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
[2020-09-22 13:04] VITALS: RESP 18
--- NOTE | 2020-09-22 14:45 | CT ---
EXAMINATION TYPE: CT lumbar spine wo con DATE OF EXAM: 09/22/2020 2:39 PM COMPARISON: 02/19/2020 HISTORY: Back pain CT DLP: 655.8 mGycm Automated exposure control for dose reduction was used. Unenhanced CT of the lumbar spine was performed. Bone and soft tissue window settings are submitted as well as coronal and sagittal reconstructions. L1-L2: Normal disc space height. No disc herniation protrusion or central stenosis. No facet joint arthropathy. No evidence for foraminal encroachment. L2-L3: Normal disc space height. No disc herniation protrusion or central stenosis. No facet joint arthropathy. No evidence for foraminal encroachment. L3-L4: Moderate degenerative disc space narrowing with posterior disc bulge. Effacement ventral theca l sac. There is constriction of the thecal sac with mild central stenosis present. L4-L5: Postoperative changes of lumbar laminectomy with pedicular screws in place as well as interver tebral spacer. Streak artifact limits evaluation at this level. There is grade 1 anterolisthesis of L 4 and L5 measuring 5 mm versus a nearly 4 mm previously. I cannot exclude recurrent or residual disea se given the extensive degree of streak artifact. L5-S1: Postoperative changes of lumbar laminectomy with pedicular screws in place as well as interver tebral spacer. Streak artifact limits evaluation at this level. There is a retrolisthesis of L5 on S1 measuring approximately 4 mm essentially unchanged relative to prior examination. I cannot exclude r ecurrent or residual disease given the extensive degree of streak artifact. No evidence for compression fracture. Dense pleural calcification right lung. Hypoattenuating lesions left kidney may reflect cysts with similar findings of the right kidney. Scoliosis convex to the lef t of the lumbar spine is redemonstrated. IMPRESSION: 1. Extensive postsurgical change at L4-5 and L5-S1 with lumbar laminectomy, intervertebral spacer missy cement and pedicular screws. As noted there is anterolisthesis of bowel 4 and L5 and retrolisthesis o f L5 on S1. Extensive streak artifact limits evaluation. 2. Mild central stenosis at L3-4.
[2020-09-22 15:35] VITALS: BP 152/101; PULSE 66; TEMP 98.6
== END 2020-09-22 16:20 | disposition home or self-care (01) ==
LOC: EC 11:36
DX: M54.5 Low back pain (principal); G89.29 Other chronic pain; I10 Essential (primary) hypertension; E78.5 Hyperlipidemia, unspecified; J44.9 Chronic obstructive pulmonary disease, unspecified; K21.9 Gastro-esophageal reflux disease without esophagitis; I25.2 Old myocardial infarction; I25.10 Atherosclerotic heart disease of native coronary artery without angina pectoris; M19.90 Unspecified osteoarthritis, unspecified site; Z86.73 Personal history of transient ischemic attack (TIA), and cerebral infarction without residual deficits; Z87.891 Personal history of nicotine dependence; Z79.82 Long term (current) use of aspirin; Z98.1 Arthrodesis status; Z88.6 Allergy status to analgesic agent
CPT/HCPCS: 72131; 99284

== ENCOUNTER → 2020-10-17 | Outpatient (CLI) | payer MEDICARE, BC ==
[2020-10-17 12:11] LABS: Chol/HDL Ratio 3.5; LDL Cholesterol,Calculated 82.6 mg/dL (0.0-131.0); VLDL Calculation 27.4 mg/dL (5.00-40.00)
== END | disposition home or self-care (01) ==
LOC: LABWHC1 08:25
PROVIDERS: ATTEND Internal Medicine Interventional Cardiology
DX: E78.2 Mixed hyperlipidemia (principal)
CPT/HCPCS: 36415; 80061; 84450; 84460

== ENCOUNTER → 2021-01-23 | Outpatient (CLI) | payer MEDICARE, BC ==
[2021-01-23 10:26] LABS: Appearance,Urine Clear (Clear); Bacteria,Urine Rare /hpf; Bilirubin,Urine Negative (Negative); Blood,Urine Negative (Negative); Color,Urine Yellow; Glucose,Urine (UA) Negative (Negative); Ketones,Urine Negative (Negative); Leukocyte Esterase,Urine Moderate (Negative); Mucus,Urine Rare /hpf; Nitrite,Urine Negative (Negative); Protein,Urine Negative (Negative); RBC,Urine 1 /hpf (0-5); Specific Gravity,Urine 1.021 (1.001-1.035); Squamous Epithelial Cell,Urine <1 /hpf (0-4); Urobilinogen,Urine <2.0 mg/dL (<2.0); WBC,Urine 13 /hpf (0-5)
[2021-01-23 11:53] LABS: Basophils # (A) 0.07 X 10*3/uL (0.00-0.10); Basophils % (A) 1.3 %; Eosinophils # (A) 0.21 X 10*3/uL (0.04-0.35); HCT 41.1 % (39.6-50.0); HGB 13.5 g/dL (13.0-17.0); Lymphocytes # (A) 1.66 X 10*3/uL (0.90-5.00); Lymphocytes % (A) 31.3 %; MCH 31.5 pg (27.0-32.0); MCHC 32.8 g/dL (32.0-37.0); MCV 95.8 fL (80.0-97.0); Mean Platelet Volume 9.9 fL (9.5-12.2); Monocytes # (A) 0.67 X 10*3/uL (0.20-1.00); Monocytes % (A) 12.6 %; Neutrophils # (A) 2.65 X 10*3/uL (1.80-7.70); Neutrophils % (A) 49.9 %; Platelet Count 251 X 10*3/uL (140-440); RBC 4.29 X 10*6/uL (4.40-5.60); RDW 12.9 % (11.5-14.5); WBC 5.31 X 10*3/uL (4.50-10.00)
[2021-01-23 13:05] LABS: African American GFR (CKD) 77.4 (60.0-200.0); Albumin 4.3 g/dL (3.8-4.9); Albumin/Globulin Ratio 1.9 (1.60-3.17); Anion Gap 10.4 mmol/L (4.00-12.00); BUN/Creat Ratio 15.09 Ratio (12.00-20.00); Blood Urea Nitrogen 16.3 mg/dL (9.0-27.0); Calcium 9.7 mg/dL (8.7-10.3); Carbon Dioxide 26.2 mmol/L (21.6-31.8); Chol/HDL Ratio 2.55 Ratio; Globulin 2.2 g/dL (1.6-3.3); HDL Cholesterol 48.6 mg/dL (40.00-60.00); LDL Cholesterol,Calculated 57.7 mg/dL (0.0-131.0); Non-African American GFR(CKD) 66.8 (60.0-200.0); PSA Annual Screen 3.4 ng/mL (0.000-4.000); Potassium 4.8 mmol/L (3.5-5.5); T4, Free (Free Thyroxine) 1.07 ng/dL (0.800-1.800); Total Bilirubin 0.4 mg/dL (0.30-1.20); Total Protein 6.5 g/dL (6.2-8.2); Triglycerides 88.6 mg/dL (0.00-149.00); VLDL Calculation 17.72 mg/dL (5.00-40.00)
== END | disposition home or self-care (01) ==
LOC: LABWHC1 08:29
PROVIDERS: ATTEND Internal Medicine Critical Care Medicine
DX: I10 Essential (primary) hypertension (principal); E55.9 Vitamin D deficiency, unspecified; E78.5 Hyperlipidemia, unspecified; M51.36 Other intervertebral disc degeneration, lumbar region; J44.9 Chronic obstructive pulmonary disease, unspecified; I63.9 Cerebral infarction, unspecified; F41.9 Anxiety disorder, unspecified; I20.9 Angina pectoris, unspecified
CPT/HCPCS: 84439; 80061; 80053; 84443; 85025; 81001; 82306; 83036; 36415; G0103

== ENCOUNTER 2021-05-28 09:38 | Emergency (ER) | payer MEDICARE, BC ==
[2021-05-28 09:41] VITALS: BP 141/84; PULSE 70; RESP 18; TEMP 98.2
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
--- NOTE | 2021-05-28 11:36 | XR ---
Lumbar spine HISTORY: Back pain 3 views lumbar spine correlated prior exam 08/08/[address] lumbar spine 09/22/2020 There is an S-shaped thoracic lumbar scoliosis. Posterior lumbar fusion has been performed at L4-5 - S1. Intervertebral spacing blocks are noted. There is multilevel spondylosis. Loss of disc height is present at intervertebral levels consistent with degenerative disc disease. Sclerosis in the posterio r elements consistent with facet arthropathy is noted. Minimal progression anterior to the cortex of S1 is noted at one of the screws. Surgical clips are present in the right upper quadrant. Irregular metallic density, calcification in the right upper quadrant is stable and is present along the right pleural margin more chronic. Apical scarring calcification is dense along the aorta iliac distribution impression: Postop changes as described. Scoliosis. Additional findings above.
--- NOTE | 2021-05-28 11:41 | XR ---
Cervical spine HISTORY: Neck pain 5 views of the cervical spine, correlation to prior exam dated 10/01/2010 Patient is status post anterior cervical fusion and discectomy at C5-C7. Bone mineralization is reduc ed. There is multilevel spondylosis. Loss of disc height is present at C3-4, C4-5, C5-6 and C6-7, pos sibly C7-T1 which is not as well visualized. Oblique images show multilevel foraminal encroachment. T here is facet arthropathy change. Patient is edentulous. Dense atherosclerotic vascular calcifications are present in the distribution of the carotid arteries. IMPRESSION: Degenerative disc disease, postop changes. Multilevel foraminal encroachment. Osteopenia.
== END 2021-05-28 12:17 | disposition home or self-care (01) ==
LOC: EC 09:38
DX: S39.012A Strain of muscle, fascia and tendon of lower back, initial encounter (principal); S16.1XXA Strain of muscle, fascia and tendon at neck level, initial encounter; J44.9 Chronic obstructive pulmonary disease, unspecified; Z86.73 Personal history of transient ischemic attack (TIA), and cerebral infarction without residual deficits; K21.9 Gastro-esophageal reflux disease without esophagitis; E78.5 Hyperlipidemia, unspecified; I10 Essential (primary) hypertension; I25.2 Old myocardial infarction; M19.90 Unspecified osteoarthritis, unspecified site; Z87.891 Personal history of nicotine dependence; Z72.89 Other problems related to lifestyle; Y93.I9 Activity, other involving external motion
CPT/HCPCS: 72050; 72100; 99283

== ENCOUNTER → 2021-11-06 | Outpatient (CLI) | payer MEDICARE, BC ==
[2021-11-06 17:36] LABS: ALT 32 U/L (10-49); AST 25 U/L (14-35); African American GFR (CKD) 72.5 (60.0-200.0); Albumin 4.8 g/dL (3.8-4.9); Albumin/Globulin Ratio 1.78 (1.60-3.17); Alkaline Phosphatase 106 U/L (41-126); BUN/Creat Ratio 12.54 Ratio (12.00-20.00); Blood Urea Nitrogen 14.3 mg/dL (9.0-27.0); Calcium 10.1 mg/dL (8.7-10.3); Carbon Dioxide 25.9 mmol/L (20.0-27.5); Chloride 104 mmol/L (96-109); Chol/HDL Ratio 3.12 Ratio; Globulin 2.7 g/dL (1.6-3.3); Glucose 106 mg/dL (70-110); LDL Cholesterol,Calculated 76.1 mg/dL (0.0-131.0); Non-African American GFR(CKD) 62.6 (60.0-200.0); Potassium 4.9 mmol/L (3.5-5.5); Sodium 140 mmol/L (135-145); Total Protein 7.5 g/dL (6.2-8.2)
== END | disposition home or self-care (01) ==
LOC: LABWHC1 08:19
PROVIDERS: ATTEND Internal Medicine Interventional Cardiology
DX: E78.2 Mixed hyperlipidemia (principal)
CPT/HCPCS: 36415; 80053; 80061

== ENCOUNTER → 2022-01-14 | Outpatient (CLI) | payer MEDICARE, BC ==
[2022-01-14 15:23] LABS: Basophils # (A) 0.08 X 10*3/uL (0.00-0.10); Basophils % (A) 1.4 %; Eosinophils # (A) 0.16 X 10*3/uL (0.04-0.35); Eosinophils % (A) 2.8 %; HCT 38.7 % (39.6-50.0); HGB 13.3 g/dL (13.0-17.0); Lymphocytes # (A) 1.87 X 10*3/uL (0.90-5.00); Lymphocytes % (A) 32.6 %; MCH 32.1 pg (27.0-32.0); MCHC 34.4 g/dL (32.0-37.0); MCV 93.5 fL (80.0-97.0); Mean Platelet Volume 9.2 fL (9.5-12.2); Monocytes % (A) 8.7 %; NRBC Per 100 WBC 0 /100 WBCS (0.0-0.0); Neutrophils # (A) 3.06 X 10*3/uL (1.80-7.70); Neutrophils % (A) 53.5 %; Platelet Count 260 X 10*3/uL (140-440); RBC 4.14 X 10*6/uL (4.40-5.60); RDW 13.2 % (11.5-14.5); WBC 5.73 X 10*3/uL (4.50-10.00)
[2022-01-14 16:25] LABS: Chol/HDL Ratio 3.65 Ratio; LDL Cholesterol,Calculated 98.9 mg/dL (0.0-131.0)
== END | disposition home or self-care (01) ==
LOC: LABWHC1 09:09
PROVIDERS: ATTEND Internal Medicine Critical Care Medicine
DX: Z12.5 Encounter for screening for malignant neoplasm of prostate (principal); I20.9 Angina pectoris, unspecified; I63.9 Cerebral infarction, unspecified; J44.9 Chronic obstructive pulmonary disease, unspecified; K21.9 Gastro-esophageal reflux disease without esophagitis; I10 Essential (primary) hypertension; E55.9 Vitamin D deficiency, unspecified
CPT/HCPCS: 84439; 80061; 84443; 85025; 82306; 83036; 36415; G0103

== ENCOUNTER → 2022-04-21 | Outpatient (CLI) | payer MEDICARE, BC ==
--- NOTE | 2022-04-21 12:15 | CT ---
EXAMINATION TYPE: CT angio neck CT DLP: 222.4 mGycm, Automated exposure control for dose reduction was used. DATE OF EXAM: 04/21/2022 11:38 AM COMPARISON: CT 02/19/2020. CLINICAL INDICATION:Male, 76 years old with history of I65.29, Carotid stenosis TECHNIQUE: Axially acquired helical CT angiogram of the neck was obtained with contrast. Axial images are supplemented with 3D reconstructions which were post-processed at an independent workstation. NA SCET criteria used. Contrast used:65 ml mL of Isovue 370 without and with IV Contrast, Oral contrast used: None. FINDINGS: CTA NECK: Right Carotid System: The common carotid artery and external carotid artery are patent. The carotid bifurcation demonstrate s calcified and noncalcified plaque with 50-70% stenosis. The remaining portions of the internal goff tid artery demonstrate normal size without significant narrowing. Left Carotid System: The common carotid artery and external carotid artery are patent. The carotid bifurcation demonstrate s calcified and noncalcified plaque with 25-50% stenosis. . The remaining portions of the internal ca rotid artery demonstrate normal size without significant narrowing. Diminutive left vertebral artery and dominant right vertebral artery. Vertebral arteries are patent. There is a three-vessel aortic arch. The origins of the great vessels are patent. No evidence of hemo dynamically significant stenosis. Mild centrilobular emphysema changes. Fixation hardware changes at C5-C6 and C7. Hardware appears in appropriate position. IMPRESSION: 1. Bilateral calcified and noncalcified plaque with at least 50-70% stenosis on the right and 25-50% stenosis on the left. 2. Diminutive left vertebral artery and dominant right.
== END | disposition home or self-care (01) ==
LOC: RADCTMAIN 09:47
PROVIDERS: ATTEND Surgery
DX: I65.23 Occlusion and stenosis of bilateral carotid arteries (principal)
CPT/HCPCS: 82565; 84520; 70498; 36415; Q9967

== ENCOUNTER 2022-07-14 06:39 | Emergency (ER) | payer MEDICARE, BC ==
[2022-07-14 06:44] VITALS: BP 138/87; PULSE 80; RESP 16; TEMP 97.6
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
[2022-07-14] MEDS: MORPHINE SULFATE 2 MG/ML SYRINGE IM STA (07:04)
[2022-07-14] MEDS: LIDOCAINE/EPINEPHR/TETRACAINE 5 ML BOTTLE TOPICAL ONE (07:04)
[2022-07-14] MEDS: LIDOCAINE 1% INJ 10MG/ML (30 ML VIAL-PF) SQ ONE (07:20)
--- NOTE | 2022-07-14 07:53 | XR ---
EXAMINATION TYPE: XR finger RT DATE OF EXAM: 07/14/2022 COMPARISON: None HISTORY: Table saw injury index finger TECHNIQUE: 3 view right index finger FINDINGS: Mild soft tissue swelling is over the index finger. Bandage appears to be present. Proximal and distal interphalangeal joint spaces are preserved. No acute osseous abnormality is evide nt. No radiopaque foreign bodies. IMPRESSION: 1. No acute osseous abnormality right index finger. 2. Diffuse soft tissue swelling.
[2022-07-14] MEDS: HYDROmorphone 1 MG/ML 1 ML SYRINGE IM STA (08:19)
== END 2022-07-14 08:54 | disposition home or self-care (01) ==
LOC: EC 06:39
DX: S61.210A Laceration without foreign body of right index finger without damage to nail, initial encounter (principal); I10 Essential (primary) hypertension; E78.5 Hyperlipidemia, unspecified; I25.10 Atherosclerotic heart disease of native coronary artery without angina pectoris; I25.2 Old myocardial infarction; J44.9 Chronic obstructive pulmonary disease, unspecified; K21.9 Gastro-esophageal reflux disease without esophagitis; M19.90 Unspecified osteoarthritis, unspecified site; Z79.02 Long term (current) use of antithrombotics/antiplatelets; Z79.1 Long term (current) use of non-steroidal anti-inflammatories (NSAID); Z79.82 Long term (current) use of aspirin; Z79.899 Other long term (current) drug therapy; Z88.6 Allergy status to analgesic agent; Z88.8 Allergy status to other drugs, medicaments and biological substances; Z87.891 Personal history of nicotine dependence; Z90.49 Acquired absence of other specified parts of digestive tract
CPT/HCPCS: 73140; 99283; 96372 ×2; J2001; J2270; J1170

== ENCOUNTER 2022-07-16 08:34 | Emergency (ER) | payer MEDICARE, BC ==
[2022-07-16 08:44] VITALS: TEMP 98
[2022-07-16] MEDS ORDERED: MORPHINE SULFATE 2 MG/ML SYRINGE IVP STA (08:55)
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
--- NOTE | 2022-07-16 09:23 | XR ---
EXAMINATION TYPE: XR hand complete RT DATE OF EXAM: 07/16/2022 9:18 AM INDICATION: Patient age:Male; 76 years old; Reason for study: recent lac right index finger; [facility]. COMPARISON: Right finger radiograph 07/14/2022 TECHNIQUE: Frontal, lateral and oblique views of the right hand were obtained. FINDINGS: Normal alignment of the visualized joints. No acute osseous pathology is identified. No os seous erosions. Mild soft tissue swelling of the index finger redemonstrated. No radiopaque foreign b odies. IMPRESSION: 1. No acute osseous pathology. No radiopaque foreign body. No osseous erosion. 2. Similar soft tissue swelling of the index finger.
[2022-07-16 09:29] LABS: Basophils % (A) 1 %; Eosinophils # (A) 0.1 k/uL (0-0.7); Eosinophils % (A) 2 %; HCT 44.3 % (39.0-53.0); HGB 15.4 gm/dL (13.0-17.5); Lymphocytes # (A) 1.4 k/uL (1.0-4.8); Lymphocytes % (A) 22 %; MCH 32.1 pg (25.0-35.0); MCHC 34.9 g/dL (31.0-37.0); Mean Platelet Volume 7.2; Monocytes # (A) 0.5 k/uL (0-1.0); Monocytes % (A) 7 %; Neutrophils # (A) 4.3 k/uL (1.3-7.7); Neutrophils % (A) 66 %; Platelet Count 246 k/uL (150-450); RBC 4.81 m/uL (4.30-5.90); RDW 13.5 % (11.5-15.5); WBC 6.6 k/uL (3.8-10.6)
[2022-07-16 09:47] LABS: Calcium 9.5 mg/dL (8.4-10.2); Potassium 4.6 mmol/L (3.5-5.1)
[2022-07-16] MEDS ORDERED: MORPHINE SULFATE 4 MG/ML SYRINGE IVP STA (10:33)
[2022-07-16 11:14] LABS: Erythrocyte Sedimentation Rate 8 mm/hr (0-15)
[2022-07-16 11:41] VITALS: BP 121/83; PULSE 84; RESP 16
== END 2022-07-16 11:41 | disposition home or self-care (01) ==
LOC: EC 08:34
DX: S61.210A Laceration without foreign body of right index finger without damage to nail, initial encounter (principal); S60.221A Contusion of right hand, initial encounter; I10 Essential (primary) hypertension; I25.10 Atherosclerotic heart disease of native coronary artery without angina pectoris; I25.2 Old myocardial infarction; J44.9 Chronic obstructive pulmonary disease, unspecified; E78.5 Hyperlipidemia, unspecified; K21.9 Gastro-esophageal reflux disease without esophagitis; M19.90 Unspecified osteoarthritis, unspecified site; F32.A Depression, unspecified; F41.9 Anxiety disorder, unspecified; Z79.02 Long term (current) use of antithrombotics/antiplatelets; Z79.82 Long term (current) use of aspirin; Z87.891 Personal history of nicotine dependence; Z88.6 Allergy status to analgesic agent; Z86.73 Personal history of transient ischemic attack (TIA), and cerebral infarction without residual deficits; Z91.048 Other nonmedicinal substance allergy status; W27.0XXA Contact with workbench tool, initial encounter
CPT/HCPCS: 36415; 80048; 85652; 85025; 87070; 87205; 73130; 99284; 96365; 96375; 96376; J2270 ×2; J0690

== ENCOUNTER 2022-09-05 11:58 | Observation (INO) | payer MEDICARE, BC ==
[2022-09-05] MEDS ORDERED: VANCOMYCIN IV PER PHARMACY 1 EACH MISC MISCELLANE PRN (12:54)
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
[2022-09-05] MEDS ORDERED: VANCOMYCIN 1,250 MG in SODIUM CHLORIDE 0.9% 250 ML IVPB STA (13:00)
[2022-09-05 13:45] LABS: Basophils % (A) 1 %; Eosinophils # (A) 0.1 k/uL (0-0.7); Eosinophils % (A) 2 %; HGB 15.3 gm/dL (13.0-17.5); Lymphocytes # (A) 1.1 k/uL (1.0-4.8); Lymphocytes % (A) 19 %; MCH 30.8 pg (25.0-35.0); MCHC 32.5 g/dL (31.0-37.0); MCV 94.8 fL (80.0-100.0); Mean Platelet Volume 7.1; Monocytes # (A) 0.4 k/uL (0-1.0); Monocytes % (A) 8 %; Neutrophils # (A) 3.9 k/uL (1.3-7.7); Neutrophils % (A) 68 %; Platelet Count 270 k/uL (150-450); RBC 4.96 m/uL (4.30-5.90); RDW 13.5 % (11.5-15.5); WBC 5.7 k/uL (3.8-10.6)
--- NOTE | 2022-09-05 13:47 | XR ---
EXAMINATION TYPE: XR forearm RT DATE OF EXAM: 09/05/2022 1:42 PM INDICATION: Patient age:Male; 76 years old; Reason for study: infection; PHH. COMPARISON: Right hand radiograph 07/16/2022 TECHNIQUE: The right forearm was examined in AP and lateral projections. FINDINGS: No acute osseous pathology, soft tissue swelling or joint dislocations are seen. No osseou s erosions. No radiopaque foreign body. IMPRESSION: No evidence of acute fracture. No osseous erosions.
[2022-09-05 14:01] LABS: ALT 32 U/L (4-49); AST 36 U/L (17-59); African American GFR (CKD) 68 (>60 ml/min/1.73 sqM); Albumin 4.8 g/dL (3.5-5.0); Alkaline Phosphatase 114 U/L (38-126); Anion Gap 13 mmol/L; Blood Urea Nitrogen 17 mg/dL (9-20); Calcium 9.3 mg/dL (8.4-10.2); Carbon Dioxide 23 mmol/L (22-30); Chloride 105 mmol/L (98-107); Glucose 92 mg/dL (74-99); Non-African American GFR(CKD) 59 (>60 ml/min/1.73 sqM); Potassium 4.4 mmol/L (3.5-5.1); Sodium 141 mmol/L (137-145); Total Bilirubin 0.7 mg/dL (0.2-1.3); Total Protein 7.6 g/dL (6.3-8.2)
[2022-09-05 14:03] LABS: INR 0.9 (<1.2); Partial Thromboplastin Time 22.3 sec (22.0-30.0)
[2022-09-05] MEDS ORDERED: NALOXONE 0.4 MG/ML 1 ML VIAL IV PRN (14:13)
[2022-09-05] MEDS ORDERED: ONDANSETRON 4 MG/2 ML VIAL IVP PRN (14:13)
[2022-09-05] MEDS ORDERED: ACETAMINOPHEN TAB 325 MG TAB PO PRN (14:20)
--- NOTE | 2022-09-05 14:40 | US ---
EXAMINATION TYPE: US venous doppler duplex UE RT DATE OF EXAM: 09/05/2022 COMPARISON: NONE CLINICAL INDICATION: Male, 76 years old with history of pain; Pain and redness to right forearm SIDE PERFORMED: Right Grayscale, color doppler, spectral doppler imaging performed of the deep veins of the right upper ext remity. There is normal flow, compressibility and vascular waveforms. The right internal jugular, erazo bclavian, axillary, basilic, brachial, cephalic, radial, and ulnar veins were evaluated. Right Arm: Negative for DVT IMPRESSION: No ultrasound evidence for deep venous thrombosis of the right upper extremity.
[2022-09-05] MEDS: SODIUM CHLORIDE 0.9% 1,000 ML IV SCH (14:55)
[2022-09-05] MEDS ORDERED: MORPHINE SULFATE 2 MG/ML SYRINGE IVP STA (15:05)
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
--- NOTE | 2022-09-05 16:08 | CT ---
EXAMINATION TYPE: CT forearm RT w con DATE OF EXAM: 09/05/2022 COMPARISON: None. HISTORY: cellulitis. pain, discoloration. CT DLP: 518.1 mGycm Automated exposure control for dose reduction was used. CONTRAST: Performed with IV Contrast, patient injected with 80ml mL of Isovue 300. FINDINGS: Some patient motion noted making evaluation slightly suboptimal. There is moderate to severe ill-defined fluid and fat stranding seen in the distal forearm and wrist along the dorsal surface. No well-formed fluid collection or abscess seen. No deep or superficial air identified to definitively suggest necrotizing fasciitis. No bony destruction is seen. Joint spaces are fairly well preserved. IMPRESSION: As above.
[2022-09-05] MEDS: ALPRAZolam 0.5 MG TAB PO SCH ×2 (16:55→21:54)
[2022-09-05] MEDS: buPROPion SR 150 MG TABLET.ER PO SCH (21:54)
[2022-09-05] MEDS: MEMANTINE 10 MG TAB PO SCH (21:54)
[2022-09-05] MEDS: HEPARIN SODIUM,PORCINE/PF 5,000 UNIT/0.5 ML SYRINGE SQ SCH (21:54)
[2022-09-05] MEDS: ATORVASTATIN 80 MG TAB PO SCH (21:54)
[2022-09-06] MEDS: VANCOMYCIN 1,250 MG in SODIUM CHLORIDE 0.9% 250 ML IVPB SCH ×2 (04:51→21:16)
[2022-09-06] MEDS: SODIUM CHLORIDE 0.9% 1,000 ML IV SCH (04:52)
[2022-09-06] MEDS: PANTOPRAZOLE 40 MG TABLET PO SCH (06:20)
[2022-09-06 08:11] LABS: Basophils % (A) 0 %; Eosinophils # (A) 0.1 k/uL (0-0.7); Eosinophils % (A) 1 %; HCT 41.8 % (39.0-53.0); HGB 13.5 gm/dL (13.0-17.5); Lymphocytes # (A) 0.9 k/uL (1.0-4.8); Lymphocytes % (A) 22 %; MCH 30.8 pg (25.0-35.0); MCHC 32.4 g/dL (31.0-37.0); MCV 95.1 fL (80.0-100.0); Mean Platelet Volume 7.2; Monocytes # (A) 0.3 k/uL (0-1.0); Monocytes % (A) 7 %; Neutrophils # (A) 2.7 k/uL (1.3-7.7); Neutrophils % (A) 66 %; Platelet Count 200 k/uL (150-450); RBC 4.39 m/uL (4.30-5.90); RDW 13.9 % (11.5-15.5); WBC 4.1 k/uL (3.8-10.6)
[2022-09-06] MEDS: CLOPIDOGREL 75 MG TAB PO SCH (09:21)
[2022-09-06] MEDS: buPROPion SR 150 MG TABLET.ER PO SCH ×2 (09:21→21:15)
[2022-09-06] MEDS: ALPRAZolam 0.5 MG TAB PO SCH ×3 (09:21→21:26)
[2022-09-06] MEDS: ISOSORBIDE MONONITRATE ER 60 MG TAB.ER.24H PO SCH (09:22)
[2022-09-06] MEDS: ASPIRIN 81 MG PO SCH (09:22)
[2022-09-06] MEDS: HEPARIN SODIUM,PORCINE/PF 5,000 UNIT/0.5 ML SYRINGE SQ SCH ×2 (09:22→21:16)
[2022-09-06] MEDS: MEMANTINE 10 MG TAB PO SCH ×2 (09:22→21:16)
[2022-09-06 09:36] LABS: African American GFR (CKD) >90 (>60 ml/min/1.73 sqM); Anion Gap 10 mmol/L; Blood Urea Nitrogen 12 mg/dL (9-20); C Reactive Protein 0.6 mg/dL (<1.0); Calcium 8.7 mg/dL (8.4-10.2); Carbon Dioxide 23 mmol/L (22-30); Chloride 106 mmol/L (98-107); Glucose 99 mg/dL (74-99); Non-African American GFR(CKD) 79 (>60 ml/min/1.73 sqM); Potassium 4.3 mmol/L (3.5-5.1); Sodium 139 mmol/L (137-145)
--- NOTE | 2022-09-06 13:47 | P.PN ---
Subjective Progress Note Date: 09/06/22 * 76-year-old gentleman with past medical history significant for dementia, carotid artery disease, hypertension, significant coronary artery disease with PCI, COPD, dyslipidemia, presented to the emergency department with right forearm pain * Patient with IV antibiotics with significant improvement noted * CT right forearm negative for abscess * On 09/06 > continue patient on IV antibiotic Rocephin and vancomycin, infectious disease consulted due to recurrent cellulitis REVIEW OF SYSTEMS: CONSTITUTIONAL: No fever, no malaise, no fatigue. Patient complained of right forearm pain HEENT: No recent visual problems or hearing problems. Denied any sore throat. CARDIOVASCULAR: No chest pain, orthopnea, PND, no palpitations, no syncope. PULMONARY: No shortness of breath, no cough, no hemoptysis. GASTROINTESTINAL: No diarrhea, no nausea, no vomiting, no abdominal pain. NEUROLOGICAL: No headaches, no weakness, no numbness. HEMATOLOGICAL: Denies any bleeding or petechiae. GENITOURINARY: Denies any burning micturition, frequency, or urgency. MUSCULOSKELETAL/RHEUMATOLOGICAL right forearm pain ENDOCRINE: Denies any polyuria or polydipsia. Objective - Vital Signs Vital signs: Vital Signs Temp 98.1 F 09/06/22 07:00 Pulse 79 09/06/22 07:00 Resp 16 09/06/22 07:00 BP 163/95 09/06/22 07:00 Pulse Ox 94 L 09/06/22 07:00 FiO2 Intake & Output 09/05/22 09/06/22 09/06/22 18:59 06:59 18:59 Intake Total 118 Balance 118 Weight 68.039 kg Intake: Oral 118 Other: Voiding Method Toilet # Voids 2 - Exam GENERAL: The patient is alert and oriented x3, not in any acute distress. Well developed, well nourished. HEENT: Pupils are round and equally reacting to light. EOMI.. No conjunctival pallor. Normocephalic, atraumatic. No thyromegaly. CARDIOVASCULAR: S1 and S2 present. No murmurs, rubs, or gallops. PULMONARY: Chest is clear to auscultation, no wheezing or crackles. ABDOMEN: Soft, nontender, nondistended, normoactive bowel sounds. No palpable organomegaly. MUSCULOSKELETAL: Right forearm swelling, improved EXTREMITIES: No cyanosis, clubbing, or pedal edema. NEUROLOGICAL: Gross neurological examination did not reveal any focal deficits. SKIN: Right forearm erythema, improved - Labs CBC & Chem 7: 09/06/22 07:25 09/06/22 07:25 Labs: Abnormal Lab Results - Last 24 Hours (Table) 09/06/22 Range/Units 07:25 Lymphocytes # 0.9 L (1.0-4.8) k/uL Assessment and Plan Assessment: Assessment and plan * Right forearm cellulitis ruled out necrotizing fasciitis * History of coronary artery disease, carotid disease * History of dementia * Dyslipidemia * In regards to cellulitis patient treated with IV antibiotic Rocephin and vancomycin, ASO titers ordered, CRP within normal limits * In regards to coronary artery disease and carotid disease continue aspirin and Plavix * CT right forearm ordered to rule out deep tissue and fat * In regards to history of dementia continue patient on Namenda * In regards to her dyslipidemia continue patient on Lipitor * Continue patient on subcu heparin for DVT prophylaxis
[2022-09-06] MEDS: ATORVASTATIN 80 MG TAB PO SCH (21:16)
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
[2022-09-07] MEDS: PANTOPRAZOLE 40 MG TABLET PO SCH (06:36)
[2022-09-07 07:09] LABS: African American GFR (CKD) >90 (>60 ml/min/1.73 sqM); Non-African American GFR(CKD) 86 (>60 ml/min/1.73 sqM)
[2022-09-07] MEDS: ASPIRIN 81 MG PO SCH (09:10)
[2022-09-07] MEDS: ISOSORBIDE MONONITRATE ER 60 MG TAB.ER.24H PO SCH (09:10)
[2022-09-07] MEDS: CLOPIDOGREL 75 MG TAB PO SCH (09:10)
[2022-09-07] MEDS: buPROPion SR 150 MG TABLET.ER PO SCH (09:10)
[2022-09-07] MEDS: MEMANTINE 10 MG TAB PO SCH (09:10)
[2022-09-07] MEDS: ALPRAZolam 0.5 MG TAB PO SCH (09:11)
[2022-09-07] MEDS: HEPARIN SODIUM,PORCINE/PF 5,000 UNIT/0.5 ML SYRINGE SQ SCH (09:11)
[2022-09-07 09:16] VITALS: BP 165/85; PULSE 77; RESP 18; TEMP 97.8
--- NOTE | 2022-09-07 10:53 | XR ---
EXAMINATION TYPE: XR hand complete RT DATE OF EXAM: 09/07/2022 CLINICAL HISTORY: Right index finger ? Foreign body. Focal pain and swelling. TECHNIQUE: Frontal, lateral and oblique images of the right hand are obtained. COMPARISON: Right hand x-ray July 16, 2022 FINDINGS: There is no acute fracture/dislocation evident in the right hand. [id number] narro wing at the third DIP joint. Focal mild to moderate soft tissue swelling over the second PIP joint re lior present greatest along the radial aspect. Mild soft tissue swelling at the third PIP joint rede monstrated along radial aspect. No suspicious new radiodense foreign body. No new bony destruction. IMPRESSION: As above. No significant change from prior x-ray.
--- NOTE | 2022-09-07 13:05 | P.DS ---
Providers Date of admission: 09/05/22 14:21 Expected date of discharge: 09/07/22 Attending physician: Alessandra Damon MD Consults: 09/06/22 10:46 Consult Physician Routine Consulting Provider: Nicole Salgado Consult Reason/Comments: recurrent cellulitis, failed outpatient rx Do you want consulting provider notified?: Yes Primary care physician: [facility] Hospital Course: * 76-year-old gentleman with past medical history significant for dementia, carotid artery disease, hypertension, significant coronary artery disease with PCI, COPD, dyslipidemia, presented to the emergency department with right forearm pain * Patient with IV antibiotics with significant improvement noted * CT right forearm negative for abscess * On 09/06 > continue patient on IV antibiotic Rocephin and vancomycin, infectious disease consulted due to recurrent cellulitis * on 09/07 > x-ray of hand are negative, seen by infectious disease transition to oral antibiotic significant improvement in cellulitis noted, inflammatory markers CBC everything within normal limits patient remains afebrile ASO titers not available at the time of discharge * Discharge on oral doxycycline to complete 10 day course GENERAL: The patient is alert and oriented x3, not in any acute distress. Well developed, well nourished. HEENT: Pupils are round and equally reacting to light. EOMI.. No conjunctival pallor. Normocephalic, atraumatic. No thyromegaly. CARDIOVASCULAR: S1 and S2 present. No murmurs, rubs, or gallops. PULMONARY: Chest is clear to auscultation, no wheezing or crackles. ABDOMEN: Soft, nontender, nondistended, normoactive bowel sounds. No palpable organomegaly. MUSCULOSKELETAL: Right forearm swelling, improved EXTREMITIES: No cyanosis, clubbing, or pedal edema. NEUROLOGICAL: Gross neurological examination did not reveal any focal deficits. SKIN: Right forearm erythema, improved Health Concerns: Assessment and plan * Right forearm cellulitis ruled out necrotizing fasciitis * History of coronary artery disease, carotid disease * History of dementia * Dyslipidemia * In regards to cellulitis patient treated with IV antibiotic Rocephin and vancomycin, CRP within normal limits>> transition to oral doxycycline to complete a 10 day course * In regards to coronary artery disease and carotid disease continue aspirin and Plavix * CT right forearm ordered to ruled out abscess * In regards to history of dementia continue patient on Namenda * In regards to her dyslipidemia continue patient on Lipitor Patient Condition at Discharge: Good Plan - Discharge Summary New Discharge Prescriptions: New Doxycycline Monohydrate 100 mg PO BID 10 Days #20 cap Continue Atorvastatin [Lipitor] 80 mg PO HS ALPRAZolam [Xanax] 0.5 mg PO TID buPROPion HCL [buPROPion HCL SR] 150 mg PO BID Pantoprazole Sodium 40 mg PO DAILY Aspirin [Adult Low Dose Aspirin EC] 81 mg PO DAILY Isosorbide Mononitrate ER [Imdur] 60 mg PO DAILY Memantine [Namenda] 10 mg PO BID Clopidogrel [Plavix] 75 mg PO DAILY Discontinued Sulfamethox-Tmp 800-160Mg [Bactrim DS 800-160 mg] 1 tab PO BID Discharge Medication List Atorvastatin [Lipitor] 80 mg PO HS 05/09/16 [History] ALPRAZolam [Xanax] 0.5 mg PO TID 08/14/17 [History] Pantoprazole Sodium 40 mg PO DAILY 05/28/21 [History] buPROPion HCL [buPROPion HCL SR] 150 mg PO BID 05/28/21 [History] Aspirin [Adult Low Dose Aspirin EC] 81 mg PO DAILY 05/17/22 [History] Clopidogrel [Plavix] 75 mg PO DAILY 05/17/22 [History] Memantine [Namenda] 10 mg PO BID 05/17/22 [History] Isosorbide Mononitrate ER [Imdur] 60 mg PO DAILY 09/05/22 [History] Doxycycline Monohydrate 100 mg PO BID 10 Days #20 cap 09/07/22 [Rx] Follow up Appointment(s)/Referral(s): Claudio Harper DO [Primary Care Provider] - 1-2 days Nicole Salgado MD [STAFF PHYSICIAN] - 1 Week Patient Instructions/Handouts: Cellulitis (GEN) Discharge Disposition: HOME SELF-CARE
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
[2022-09-08] MEDS ORDERED: VANCOMYCIN TROUGH DUE 1 EACH MISC MISCELLANE ONE (04:00)
== END 2022-09-07 14:22 | disposition home or self-care (01) ==
LOC: EC 11:58 → SUPCPDRO 11:58 → 6NMEDSUR 14:21
PROVIDERS: ADMIT Internal Medicine; ATTEND Internal Medicine
DX: L03.113 Cellulitis of right upper limb (principal); I10 Essential (primary) hypertension; I25.10 Atherosclerotic heart disease of native coronary artery without angina pectoris; E78.5 Hyperlipidemia, unspecified; J44.9 Chronic obstructive pulmonary disease, unspecified; F03.93 Unspecified dementia, unspecified severity, with mood disturbance; F03.94 Unspecified dementia, unspecified severity, with anxiety; I77.9 Disorder of arteries and arterioles, unspecified; I25.2 Old myocardial infarction; G89.29 Other chronic pain; M47.9 Spondylosis, unspecified; H91.90 Unspecified hearing loss, unspecified ear; R41.3 Other amnesia; Z79.82 Long term (current) use of aspirin; Z79.02 Long term (current) use of antithrombotics/antiplatelets; Z79.1 Long term (current) use of non-steroidal anti-inflammatories (NSAID); Z79.899 Other long term (current) drug therapy; Z86.73 Personal history of transient ischemic attack (TIA), and cerebral infarction without residual deficits; Z90.49 Acquired absence of other specified parts of digestive tract; Z98.1 Arthrodesis status; Z87.01 Personal history of pneumonia (recurrent); Z87.19 Personal history of other diseases of the digestive system; Z87.891 Personal history of nicotine dependence; Z98.890 Other specified postprocedural states
CPT/HCPCS: 96366 ×3; 96372 ×2; 96368; 96365; 96375; 99285; 36415; 93005; 80053; 80048; 82565; 83605; 85025 ×2; 85610; 85730; 86140; 87040; 86060; 73090; 73130; 93971; 73201; G0378 ×3; J3370 ×2; S0106 ×3; J0696 ×3; J2270; Q9967; J1644 ×2

== ENCOUNTER → 2023-01-18 | Outpatient (CLI) | payer MEDICARE, BC ==
[2023-01-18 10:55] LABS: Basophils # (A) 0.06 X 10*3/uL (0.00-0.10); Basophils % (A) 1.1 %; Eosinophils # (A) 0.14 X 10*3/uL (0.04-0.35); Eosinophils % (A) 2.6 %; HCT 46.5 % (39.6-50.0); HGB 15.4 d/dL (13.0-17.0); Lymphocytes # (A) 1.47 X 10*3/uL (0.90-5.00); Lymphocytes % (A) 26.8 %; MCHC 33.1 d/dL (32.0-37.0); MCV 93.8 FL (80.0-97.0); Mean Platelet Volume 9.6 FL (9.5-12.2); Monocytes # (A) 0.53 X 10*3/uL (0.20-1.00); Monocytes % (A) 9.7 %; NRBC Per 100 WBC 0 X 10*3/uL (0.00-0.01); Neutrophils # (A) 3.26 X 10*3/uL (1.80-7.70); Neutrophils % (A) 59.4 %; Platelet Count 244 X 10*3/uL (140-440); RBC 4.96 X 10*6/uL (4.40-5.60); RDW 13.3 % (11.5-14.5); WBC 5.48 X 10*3/uL (4.50-10.00)
[2023-01-18 17:58] LABS: T4, Free (Free Thyroxine) 1.03 ng/dL (0.80-1.80)
[2023-01-18 18:06] LABS: PSA Annual Screen 3.64 ng/mL (0.000-4.000)
== END | disposition home or self-care (01) ==
LOC: LABWHC1 07:35
PROVIDERS: ATTEND Internal Medicine Critical Care Medicine
DX: Z00.00 Encounter for general adult medical examination without abnormal findings (principal); Z12.5 Encounter for screening for malignant neoplasm of prostate; I10 Essential (primary) hypertension; E55.9 Vitamin D deficiency, unspecified; E78.5 Hyperlipidemia, unspecified; M48.00 Spinal stenosis, site unspecified; K21.9 Gastro-esophageal reflux disease without esophagitis; J44.9 Chronic obstructive pulmonary disease, unspecified
CPT/HCPCS: 84439; 84443; 85025; 82306; 83036; 36415; G0103